=== PATIENT | female | born 1940 ===

== ENCOUNTER 2018-10-04 15:02 | Inpatient (IN) | payer OTHER ==
[2018-10-04] MEDS ORDERED: Piperacill/Tazo 3.375gm in Dex 3.375 GM/50 ML BAG IVPB STA (15:22)
[2018-10-04 15:24] VITALS: BMI 23.4
[2018-10-04] MEDS ORDERED: Vancomycin 1 GM 1 GM/250 ML BAG IV SCH (15:30)
[2018-10-04 15:40] LABS: VENOUS BLOOD GAS BASE EXCESS -8.6 mmol/L (0.0-2.0); VENOUS BLOOD GAS PCO2 33 mmHg (40-60); VENOUS BLOOD GAS PO2 41 mm/Hg (30-55); VENOUS BLOOD PH 7.31 (7.32-7.43)
[2018-10-04] MEDS ORDERED: Piperacillin/Tazobact 3.375 gm 100 ML IVPB ONE (15:43)
[2018-10-04 15:44] LABS: BASO % 0.3 % (0.0-2.0); EOS % 0.2 % (0.0-4.0); HEMOGLOBIN 9.7 g/dL (11.0-16.0); LYMPH # 1.4 K/uL (1.0-4.3); LYMPH % 12.9 % (20.0-40.0); MEAN CELL VOLUME 100.8 fL (81.0-99.0); MEAN CORPUSCULAR HEMOGLOBIN 32.1 pg (27.0-31.0); MEAN CORPUSCULAR HGB CONC 31.9 g/dL (33.0-37.0); MEAN PLATELET VOLUME 10.2 fL (7.2-11.7); MONO # 2.1 K/uL (0.0-0.8); MONO % 19.1 % (0.0-10.0); NEUT # 7.6 K/uL (1.8-7.0); NEUT % 67.5 % (50.0-75.0); NRBC % 0.3 % (0.0-2.0); RBC 3.02 Mil/uL (3.80-5.20); RED CELL DISTRIBUTION WIDTH 15.7 % (11.5-14.5); WHITE BLOOD COUNT 11.2 K/uL (4.8-10.8)
--- NOTE | 2018-10-04 15:44 | C.PDOC ---
History Of Present Illness Pt is a 78 y/o female, with history of malignant gastric cancer, asthma, hypothyroidism, alzheimer's, sick sinus syndrome, pacemaker, and atrial fibrillation, is brought in by ambulance to ED after being found unresponsive at [facility]. As per EMS, the patient was discharged from [facility] 2 days ago with a UTI and was supposed to be receiving IV fluids and IV antibiotics but her IV line came out > 24 hrs ago so patient has not been receiving her IV medication(s). Patient was found unresponsive, sinus tac hycardic at 130 bpm, hypotensive, and tachypneic by EMS and patient is not verbal. Since arrival to ED, patient has slightly improved per EMS (a bit more responsive and occasionally will moan/try to speak). Patient is DNR/DNI but DNH (do not hospitalize) has been revoked by daughter. [facility] PMD: Dr. Miguel Jimenez Chief Complaint (Nursing): Altered Mental Status History Per: EMS History/Exam Limitations: None Onset/Duration Of Symptoms: Hrs Current Symptoms Are (Timing): Still Present Past Medical History Reviewed: Historical Data, Nursing Documentation, Vital Signs Vital Signs: Last Vital Signs Temp Pulse 126 H 10/04/18 15:23 Resp 30 H 10/04/18 15:23 BP 113/96 H 10/04/18 15:23 Pulse Ox 100 10/04/18 15:23 - Medical History PMH: Alzheimer's Disease, Asthma, Atrial Fibrillation, Dementia, HTN, H ypothyroidism Family History: States: Stroke (father from stroke) - Social History Hx Tobacco Use: No Hx Alcohol Use: No Hx Substance Use: No - Immunization History Hx Tetanus Toxoid Vaccination: No Hx Influenza Vaccination: No Hx Pneumococcal Vaccination: No Review Of Systems Except As Marked, All Systems Reviewed And Found Negative. Neurological: Positive for: Altered Mental Status Physical Exam - Physical Exam Appears: Toxic, Other (Lethargic--looks very ill) Skin: Warm, Dry, No Rash Head: Atraumatic, Normacephalic Eye(s): bilateral: Normal Inspection, PERRL, EOMI Ear(s): Bilateral: Normal Nose: Normal Oral Mucosa: Dry Lips: Other (dry) Throat: Normal Neck: Supple Chest: Symmetrical Cardiovascular: Rhythm Regular (Tachycardic), No Murmur Respiratory: Normal Breath Sounds, No Rales, No Rhonchi, No Wheezing Gastrointestinal/Abdominal: Soft, No Tenderness Rectal: Deferred Back: Normal Inspection Extremity: Other (+ intraosseous lines to both shoulders) Extremity: Bilateral: Atraumatic, No Pedal Edema Pulses: Left Radial: Absent (due to hypotension), Right Radial: Absent (due to hypotension) Neurological/Psych: Other (Responsive to painful stimuli) ED Course And Treatment - Laboratory Results Result Diagrams: 10/04/18 15:35 10/04/18 16:26 O2 Sat by Pulse Oximetry: 100 (RA) Pulse Ox Interpretation: Normal - Other Rad Chest X-Ray X-Ray: Read By Radiologist Interpretation: LUNGS: There are low lung volumes. The lungs are clear. PLEURA: No pleural effusions or pneumothorax. CARDIOVASCULAR: The heart is normal in size. There is unfolding of the aorta. There is a left-sided dual lead transvenous permanent pacing device. No aortic atherosclerotic calcification present. OSSEOUS STRUCTURES: Within normal limits for the patient's age. VISUALIZED UPPER ABDOMEN: Normal. OTHER FINDINGS: None. IMPRESSION: No acute findings Medical Decision Making Medical Decision Making: Initial Impression: Severe sepsis / septic shock The daughter is at bedside; earlier today the daughter revoked the "do not hospitalize" order from the [facility]. However, the daughter did clarify that the patient is still DNR/DNI Plan: --Bloodwork --EKG --Chest X-Ray --VBG --Zosyn --Vancomycin --Urinalysis --Follow Code sepsis protocol. Progress note: 4:30 PM - Lactate 2.1 meeting criteria for severe sepsis. Codes sepsis activated. I spoke to Dr. Miguel Jimenez (following pt at [facility]). He recommends admission to his service and ID consult with Dr. Galvan and hematology/oncology consult with Dr. Issac Gonzáles. Also, the left intra-osseous line was not functioning properly and was removed. Right intra-osseous line is still working; pt also has a peripheral IV. CMP hemolyzed but I darren a repeat CMP. qSOFA score = 3 6:30 PM - I discussed case with fishing gear mechanic and feels that given patient's DNR/DNI status, it would be more appropriate to admit to telemetry (not ICU) and focus on comfort care. 6:50 PM - Dr. Galvan called and recommended adding 500 mg Meropenam Q8 until cultures start coming back. Disposition - Disposition Disposition: HOSPITALIZED Disposition Time: 16:37 Condition: SERIOUS - Clinical Impression Clinical Impression: Severe sepsis, DNR (do not resuscitate), DNI (do not intubate), Gastric cancer, Alzheimer disease - Scribe Statement The provider has reviewed the documentation as recorded by the Cassidyibvivian Chavez Provider Attestation: All medical record entries made by the Cassidyibvivian were at my direction and p ersonally dictated by me. I have reviewed the chart and agree that the record accurately reflects my personal performance of the history, physical exam, medical decision making, and the department course for this patient. I have also personally directed, reviewed, and agree with the discharge instructions and disposition. Decision To Admit - Pt Status Changed To: Hospital Disposition Of: Inpatient - Admit Certification Admit to Inpatient:: After my assessment, the patient will require hospi talization for at least two midnights. This is because of the severity of symptoms shown, intensity of services needed, and/or the medical risk in this patient being treated as an outpatient. - InPatient: Physician Admission Certification:: Patient with severe sepsis - . Bed Request Type: ICU Admitting Physician: Alonzo Jimenez MD Patient Diagnosis: Severe sepsis, DNR (do not resuscitate), DNI (do not intubate), Gastric cancer, Alzheimer disease
[2018-10-04 15:46] LABS: INR 2.1
--- NOTE | 2018-10-04 16:33 | RAD ---
Date of service: 10/04/2018 HISTORY: Sepsis Patient COMPARISON: 08/22/2015. FINDINGS: LUNGS: There are low lung volumes. The lungs are clear. PLEURA: No pleural effusions or pneumothorax. CARDIOVASCULAR: The heart is normal in size. There is unfolding of the aorta. There is a left-sided dual lead transvenous permanent pacing device. No aortic atherosclerotic calcification present. OSSEOUS STRUCTURES: Within normal limits for the patient's age. VISUALIZED UPPER ABDOMEN: Normal. OTHER FINDINGS: None. IMPRESSION: No acute findings.
[2018-10-04] MEDS ORDERED: Vancomycin 1 GM 1 GM/250 ML BAG IVPB ONE (16:58)
[2018-10-04 17:03] LABS: SQUAMOUS EPITHIAL 1 /hpf (0-5); URINE BACTERIA MANY (<OCC); URINE BILIRUBIN 1+ (NEGATIVE); URINE BLOOD NEGATIVE (NEGATIVE); URINE CLARITY Clear (Clear); URINE COLOR Amber (YELLOW); URINE GLUCOSE (UA) NORMAL (Normal); URINE LEUKOCYTE ESTERASE NEG Leu/uL (Negative); URINE PROTEIN 1+ mg/dL (NEGATIVE)
[2018-10-04 17:07] LABS: ALB/GLOB RATIO 0.6 (1.0-2.1); ALBUMIN 1.8 g/dL (3.5-5.0); CALCIUM 7.5 mg/dl (8.6-10.4)
[2018-10-04] MEDS ORDERED: Ciprofloxacin 400mg/200ml D5W 400 MG/200 ML BAG IV STA (17:14)
[2018-10-04 17:20] LABS: TROPONIN I 0.13 ng/mL (0.00-0.120)
[2018-10-04] MEDS ORDERED: Sodium Chloride 0.9% 1,000 ML IV ONE (18:04)
[2018-10-04 18:26] LABS: VENOUS BLOOD GAS BASE EXCESS -14.3 mmol/L (0.0-2.0); VENOUS BLOOD GAS PCO2 28 mmHg (40-60); VENOUS BLOOD GAS PO2 37 mm/Hg (30-55); VENOUS BLOOD PH 7.23 (7.32-7.43)
[2018-10-04] MEDS ORDERED: Meropenem 500 MG in Sodium Chloride 0.9% 100 ML IVPB STA (18:49)
[2018-10-04] MEDS ORDERED: Ciprofloxacin 400mg/200ml D5W 400 MG/200 ML BAG IVPB ONE (18:58)
[2018-10-04] MEDS ORDERED: Meropenem 500 MG in Sodium Chloride 0.9% 100 ML IVPB ONE (21:00)
[2018-10-05] MEDS ORDERED: Piperacill/Tazo 3.375gm in Dex 3.375 GM/50 ML BAG IVPB SCH (08:15)
[2018-10-05] MEDS ORDERED: Piperacill/Tazo 2.25gm in Dex 2.25 GM/50 ML BAG IVPB SCH (08:30)
[2018-10-05] MEDS: Sodium Chloride 0.9% 500 ML IV SCH ×4 (08:31→11:45)
[2018-10-05] MEDS ORDERED: Enoxaparin 40 mg Syringe SC SCH (10:00)
--- NOTE | 2018-10-05 10:28 | CP.PCM.CON ---
History of Present Illness - History of Present Illness History of Present Illness: Palliative consult requested by Doctor Khoury for end of life care discussion Patient is a 78 yo female , admitted from [facility] at [facility] where she was found unresponsive with HR of 130. Patient was discharged just 2 days ago from [facility] where was treated for UTI. IV fluids and IV antibiotics were ordered upon discharge, but patient lost IV access at the [facility] and those were not administered. Upon admission patient was found with elevated Troponin and BNP, elevated ALTs and ASTs, low Albumin, and very hypotensive; BP 79/54, HR 128 and Temp 101.1. Patient was diagnosed with severe sepsis and dehydration. IVF bolus given and Zosyn IV started. However, patient's condition remains critical. Patient is DNR/DNI as per LYNDA from intermediate. PMH: malignant gastric CA, asthma, Alzheimer's, A fib Soc. Hx: , lives at home with daughter Eliana Jacobo. Hx: Unknown Review of Systems - Review of Systems All systems: reviewed and no additional remarkable complaints except Review of Systems: ROS unobtainable from the patient due to lethargy. ROS obtained from nursing. Patient is in pain, moaning.Per Lilia BHAKTA, due to low BP , Morphine is not administered. IVF on board for BP support Past Patient History - Past Medical History & Family History Past Medical History?: Yes - Past Social History Smoking Status: Never Smoked - CARDIAC Hx Atrial Fibrillation: Yes Hx Hypertension: Yes - PULMONARY Hx Asthma: Yes - NEUROLOGICAL Hx Alzheimer's Disease: Yes Hx Dementia: Yes - HEENT Hx HEENT Problems: No Hx Cataracts: Yes Other/Comment: Sinus syndrome - RENAL Hx Chronic Kidney Disease: No - ENDOCRINE/METABOLIC Hx Hypothyroidism: Yes - HEMATOLOGICAL/ONCOLOGICAL Hx Blood Disorders: No - INTEGUMENTARY Hx Dermatological Problems: No - MUSCULOSKELETAL/RHEUMATOLOGICAL Hx Musculoskeletal Disorders: No Hx Falls: Yes - GASTROINTESTINAL Hx Gastrointestinal Disorders: No Hx Gastroesophageal Reflux: No Other/Comment: Stomach CA - GENITOURINARY/GYNECOLOGICAL Hx Genitourinary Disorders: No - PSYCHIATRIC Hx Substance Use: No - SURGICAL HISTORY Hx Surgeries: Yes Hx Cataract Extraction: Yes Hx Section: Yes (37 yrs ago) Hx Orthopedic Surgery: Yes (knee replacement) Other/Comment: l knee surgery. Pacemaker - ANESTHESIA Hx Anesthesia: Yes Hx Anesthesia Reactions: No Hx Malignant Hyperthermia: No Meds Allergies/Adverse Reactions: Allergies Allergy/AdvReac Type Severity Reaction Status Date / Time No Known Allergies Allergy Verified 08/22/15 09:05 - Medications Medications: Current Medications Enoxaparin Sodium (Lovenox) 40 mg SC DAILY [facility] Sodium Chloride (Sodium Chloride 0.9%) 500 mls @ 500 mls/hr IV .Q1H CHRISTIANO Last Admin: 10/05/18 08:31 Dose: 500 mls/hr Piperacillin Sod/Tazobactam Sod (Zosyn 2.25 Gm Iv Premix) 2.25 gm in 50 mls @ 100 mls/hr IVPB Q8H [facility]; Protocol Morphine Sulfate (Morphine) 2 mg IVP Q4 PRN PRN Reason: Pain, severe (8-10) Last Admin: 10/04/18 21:06 Dose: 2 mg Pantoprazole Sodium (Protonix Inj) 40 mg IVP DAILY [facility] Last Admin: 10/05/18 09:07 Dose: 40 mg Physical Exam - Constitutional Appears: In Acute Distress, Chronically Ill - Head Exam Head Exam: ATRAUMATIC, NORMAL INSPECTION, NORMOCEPHALIC - Eye Exam Eye Exam: EOMI, Normal appearance, PERRL Pupil Exam: NORMAL ACCOMODATION, PERRL - ENT Exam ENT Exam: Mucous Membranes Dry - Neck Exam Neck exam: Positive for: Normal Inspection - Respiratory Exam Respiratory Exam: Decreased Breath Sounds - Cardiovascular Exam Cardiovascular Exam: Tachycardia, Irregular Rhythm - GI/Abdominal Exam GI & Abdominal Exam: Distended, Hypoactive Bowel Sounds - Rectal Exam Rectal Exam: Deferred - Extremities Exam Extremities exam: Positive for: normal inspection - Back Exam Back exam: NORMAL INSPECTION - Neurological Exam Neurological exam: Motor Sensory Deficit - Psychiatric Exam Psychiatric exam: Agitated, Anxious - Skin Skin Exam: Dry, Intact, Normal Color Results - Vital Signs Recent Vital Signs: Last Vital Signs Temp 101.1 F H 10/05/18 07:00 Pulse 138 H 10/05/18 08:00 Resp 20 10/05/18 07:00 BP 79/54 L 10/05/18 07:00 Pulse Ox 100 10/05/18 08:57 - Labs Result Diagrams: 10/04/18 15:35 10/04/18 16:26 Labs: Laboratory Results - last 24 hr 10/04/18 10/04/18 10/04/18 15:19 15:35 15:35 WBC 11.2 H D RBC 3.02 L Hgb 9.7 L D Hct 30.5 L MCV 100.8 H D MCH 32.1 H MCHC 31.9 L RDW 15.7 H Plt Count 139 MPV 10.2 Neut % (Auto) 67.5 Lymph % (Auto) 12.[address] [facility] % (Auto) 19.1 H Eos % (Auto) 0.2 Baso % (Auto) 0.3 Neut # (Auto) 7.6 H Lymph # (Auto) 1.4 [facility] # (Auto) 2.1 H Eos # (Auto) 0.0 Baso # (Auto) 0.0 PT 23.0 H INR 2.1 APTT 32 pO2 VBG pH VBG pCO2 VBG HCO3 VBG Total CO2 VBG O2 Sat (Calc) VBG Base Excess VBG Potassium Sodium Chloride Glucose Lactate Potassium Carbon Dioxide Anion Gap BUN Creatinine Est GFR ( Amer) Est GFR (Non-Af Amer) POC Glucose (mg/dL) 90 Random Glucose Calcium Total Bilirubin AST ALT Alkaline Phosphatase Troponin I NT-Pro-B Natriuret Pep Total Protein Albumin Globulin Albumin/Globulin Ratio Venous Blood Potassium Urine Color Urine Clarity Urine pH Ur Specific [place] Urine Protein Urine Glucose (UA) Urine Ketones Urine Blood Urine Nitrate Urine Bilirubin Urine Urobilinogen Ur Leukocyte Esterase Urine WBC (Auto) Urine RBC (Auto) Ur Squamous Epith Cells Urine Bacteria 10/04/18 10/04/18 10/04/18 15:37 16:26 16:53 WBC RBC Hgb Hct MCV MCH MCHC RDW Plt Count MPV Neut % (Auto) Lymph % (Auto) [facility] % (Auto) Eos % (Auto) Baso % (Auto) Neut # (Auto) Lymph # (Auto) [facility] # (Auto) Eos # (Auto) Baso # (Auto) PT INR APTT pO2 41 VBG pH 7.31 L VBG pCO2 33 L VBG HCO3 17.5 VBG Total CO2 17.6 L VBG O2 Sat (Calc) 69.1 H VBG Base Excess -8.6 L VBG Potassium 5.1 Sodium 143.0 139 Chloride 111.0 H 116 H Glucose 78 Lactate 2.1 Potassium 4.8 Carbon Dioxide 15 L Anion Gap 12 BUN 36 H Creatinine 2.2 H Est GFR ( Amer) 26 Est GFR (Non-Af Amer) 22 POC Glucose (mg/dL) Random Glucose 85 Calcium 7.5 L Total Bilirubin 0.9 AST 2591 H ALT 156 H D Alkaline Phosphatase 248 H Troponin I 0.1300 H* NT-Pro-B Natriuret Pep 2610 H Total Protein 4.8 L Albumin 1.8 L D Globulin 3.0 Albumin/Globulin Ratio 0.6 L Venous Blood Potassium 5.1 Urine Color Stephanie Urine Clarity Clear Urine pH 5.0 Ur Specific [place] 1.027 Urine Protein 1+ H Urine Glucose (UA) Normal Urine Ketones Negative Urine Blood Negative Urine Nitrate Negative Urine Bilirubin 1+ H Urine Urobilinogen 2.0 H Ur Leukocyte Esterase Neg Urine WBC (Auto) 72 H Urine RBC (Auto) 4 H Ur Squamous Epith Cells 1 Urine Bacteria Many H 10/04/18 10/04/18 18:22 22:23 WBC RBC Hgb Hct MCV MCH MCHC RDW Plt Count MPV Neut % (Auto) Lymph % (Auto) [facility] % (Auto) Eos % (Auto) Baso % (Auto) Neut # (Auto) Lymph # (Auto) [facility] # (Auto) Eos # (Auto) Baso # (Auto) PT INR APTT pO2 37 VBG pH 7.23 L VBG pCO2 28 L VBG HCO3 12.7 VBG Total CO2 12.6 L VBG O2 Sat (Calc) 57.8 VBG Base Excess -14.3 L VBG Potassium 4.0 Sodium 145.0 Chloride 122.0 H Glucose 59 L Lactate 3.6 H Potassium Carbon Dioxide Anion Gap BUN Creatinine Est GFR ( Amer) Est GFR (Non-Af Amer) POC Glucose (mg/dL) 93 Random Glucose Calcium Total Bilirubin AST ALT Alkaline Phosphatase Troponin I NT-Pro-B Natriuret Pep Total Protein Albumin Globulin Albumin/Globulin Ratio Venous Blood Potassium 4.0 Urine Color Urine Clarity Urine pH Ur Specific [place] Urine Protein Urine Glucose (UA) Urine Ketones Urine Blood Urine Nitrate Urine Bilirubin Urine Urobilinogen Ur Leukocyte Esterase Urine WBC (Auto) Urine RBC (Auto) Ur Squamous Epith Cells Urine Bacteria Assessment & Plan - Assessment and Plan (Free Text) Assessment: Palliative consult DNR/DNI, POLST on chart, PPS 10% I reviewed all medical records and diagnostic studies, examined patient in bed and discussed goals of care with family at bed side Patient is alert, unable to fallow commends, moaning in pain. Morphine 2 mg IV Q 4 h on board. Last Morphine dose given at 9 pm last night. The PRN doses of Morphine held due to patient's very low BP. Breathing is shallow and fast, HR 130, afebrile. max Temp last night 101.1. Abdomen distended, rigid, hypoactive bowel sounds. Patient is agitated, able to move all her extremities. One of the daughters and granddaughter at bed side. I reviewed patient's clinical presentation with her and offered my concerns about grave prognosis. They stated understanding and concerns about patient's level of pain not being well controlled. I explained concerns regarding the low BP and suggested Comfort care discussion and explained that under the Hospice care patient is expected to , but with better comfort measures. Family stated understanding and wanted her to peacefully. The family also stated that daughter Sanjiv Monroy was the Medical decisions maker and asked me to talk to her. Eliana was not available on the phone at this time and I lef voice mail. I shared my concerns about this patient very poor clinical presentation with alee BHAKTA and Doctor isabel Jimenez. Doctor Isabel Jmienez agreed with Hospice eval and ordered Morphine 2 mg IV to be given until hospice comes. Impression * Chronically ill lady in acute respiratory distress * Pain cancer related * Agitation * Unresponsiveness * Hypotension * This will most likely in the next 24 to 48 hr * Family at bed side is concerned with patient's comfort and understands the grave prognosis * Doctor Isabel Jimenez agrees with Hospice eval and Morphine IV for pain Suggestion * Morphine 2 mg Iv Q 2 hr PRN pain or respiratory distress * Hospice evaluation for Comfort care * DNR/DNI * I would install Comfort measures even before hospice comes; Morphine drip, NPO and would stop IV antibiotics Advance care discussion 60 min Palliative care will fallow with this patient until Hospice takes over
--- NOTE | 2018-10-05 11:02 | CP.PCM.CON ---
History of Present Illness - History of Present Illness History of Present Illness: 78 yo female , admitted from [place] where she was found unresponsive with HR of 130. Patient was discharged just 2 days ago [place] [facility] [place]. IV fluids and IV antibiotics were ordered upon discharge, but maryann hsieh lost IV access at the [place] and those were not administered. Upon admission patient was found with elevated Troponin and BNP, elevated ALTs and ASTs, low Albumin, and very hypotensive; BP 79/54, HR 128 and Temp 101.1. Patient was diagnosed with severe sepsis and dehydration. IVF bolus given and Zosyn IV started. H PMH: malignant gastric CA, asthma, Alzheimer's, A fib Soc. Hx: , lives at home with daughter Eliana Jacobo. Hx: Unknown Review of Systems - Review of Systems All systems: reviewed and no additional remarkable complaints except - Constitutional Constitutional: As Per HPI - EENT Eyes: absent: As Per HPI, Blind Spots, Blurred Vision, Change in Vision, Decreased Night Vision, Diplopia, Discharge, Dry Eye, Exophthalmos, Floaters, Irritation, Itchy Eyes, Loss of Peripheral Vision, Pain, Photophobia, Requires Corrective Lenses, Sees Flashes, Spots in Vision, Tunnel Vision, Other Visual Disturbances, Loss of Vision, Other Ears: absent: As Per HPI, Decreased Hearing, Ear Discharge, Ear Pain, Tinnitus, Abnormal Hearing, Disequilibrium, Dizziness, Other Nose/Mouth/Throat: absent: As Per HPI, Epistaxis, Nasal Congestion, Nasal Discharge, Nasal Obstruction, Nasal Trauma, Nose Pain, Post Nasal Drip, Sinus Pain, Sinus Pressure, Bleeding Gums, Change in Voice, Dental Pain, Dry Mouth, Dysphagia, Halitosis, Hoarsness, Lip Swelling, Mouth Lesions, Mouth Pain, Odynophagia, Sore Throat, Throat Swelling, Tongue Swelling, Facial Pain, Neck Pain, Neck Mass, Other - Breasts Breasts: absent: As Per HPI, Change in Shape, Mass, Pain, Nipple Discharge, Nipple Inversion, Skin Changes, Swelling, Other - Cardiovascular Cardiovascular: As Per HPI - Respiratory Respiratory: As Per HPI - Gastrointestinal Gastrointestinal: absent: As Per HPI, Abdominal Pain, Belching, Bloating, Change in Bowel Habits, Change in Stool Character, Coffee Ground Emesis, Constipation, Cramping, Diarrhea, Dyspepsia, Dysphagia, Early Satiety, Excessive Flatus, Fecal Incontinence, Heartburn, Hematemesis, Hematochezia, Loose Stools, Melena, Nausea, Odynophagia, Temesmus, Vomiting, Other - Genitourinary Genitourinary: absent: As Per HPI, Change in Urinary Stream, Difficulty Urinating, Dysuria, Flank Pain, Hematuria, Pyuria, Nocturia, Urinary Incontinence, Urinary Frequency, Urinary Hesitance, Urinary Urgency, Voiding Freq/Small Amts, Freq UTI, Hx Renal/Bladder Calculi, Hx /Renal Surgery, Bladder Distension, Other - Reproductive: Female Reproductive:Female: absent: As Per HPI, Amenorrhea, Amenorrhea/ Control, Currently Menstual, Cycle <21 Days, Cycle >35 Days, Cycle Variable, Menses 1-7 Days, Menses >/= 8 Days, Menses Variable, Cycle > 4 Weeks Between, No Menses for 6 Months, Heavy Menses, Light Menses, Normal Menses, Spotting Between Cycles, S/P Hysterectomy, Menopausal, Post Menopausal, Premenarche, Abnormal Vaginal Bleeding, Dysmenorrhea, Dyspareunia, Genital Lesions, Genital Pruritis, Pelvic Pain, Prolapse Symptoms, Sexual Dysfunction, Vaginal Discharge, Vaginal Dryness, Vaginal Odor, Vaginal Pruritis, Other - Menstruation Menstruation: absent: As Per HPI, Amenorrhea, Amenorrhea/ Control, Currently Menstual, Cycle <21 Days, Cycle >35 Days, Cycle Variable, Menses 1-7 Days, Menses >/= 8 Days, Menses Variable, Cycle > 4 Weeks Between, No Menses for 6 Months, Heavy Menses, Light Menses, Normal Menses, Spotting Between Cycles, S/P Hysterectomy, Menopausal, Post Menopausal, Premenarche, Abnormal Vaginal Bleeding, Dysmenorrhea, Other - Musculoskeletal Musculoskeletal: As Per HPI - Integumentary Integumentary: absent: As Per HPI, Acne, Alopecia, Bleeding Lesions, Change in Hair, Change in Nails, Change in Pigmentation, Changing Lesions, Dry Skin, Erythema, Furuncle, Hirsutism, Lesions, New Lesions, Non-Healing Lesions, Photosensitivity, Pruritus, Rash, Skin Pain, Skin Ulcer, Sores, Striae, Swelling, Unusual Bruising, Wounds, Jaundice, Other - Neurological Neurological: As Per HPI - Psychiatric Psychiatric: As Per HPI - Hematologic/Lymphatic Hematologic: absent: As Per HPI, Easy Bleeding, Easy Bruising, Lymphadenopathy, Other Past Patient History - Past Medical History & Family History Past Medical History?: Yes - Past Social History Smoking Status: Never Smoked - CARDIAC Hx Atrial Fibrillation: Yes Hx Hypertension: Yes - PULMONARY Hx Asthma: Yes - NEUROLOGICAL Hx Alzheimer's Disease: Yes Hx Dementia: Yes - HEENT Hx HEENT Problems: No Hx Cataracts: Yes Other/Comment: Sinus syndrome - RENAL Hx Chronic Kidney Disease: No - ENDOCRINE/METABOLIC Hx Hypothyroidism: Yes - HEMATOLOGICAL/ONCOLOGICAL Hx Blood Disorders: No - INTEGUMENTARY Hx Dermatological Problems: No - MUSCULOSKELETAL/RHEUMATOLOGICAL Hx Musculoskeletal Disorders: No Hx Falls: Yes - GASTROINTESTINAL Hx Gastrointestinal Disorders: No Hx Gastroesophageal Reflux: No Other/Comment: Stomach CA - GENITOURINARY/GYNECOLOGICAL Hx Genitourinary Disorders: No - PSYCHIATRIC Hx Substance Use: No - SURGICAL HISTORY Hx Surgeries: Yes Hx Cataract Extraction: Yes Hx Section: Yes (37 yrs ago) Hx Orthopedic Surgery: Yes (knee replacement) Other/Comment: l knee surgery. Pacemaker - ANESTHESIA Hx Anesthesia: Yes Hx Anesthesia Reactions: No Hx Malignant Hyperthermia: No Meds Allergies/Adverse Reactions: Allergies Allergy/AdvReac Type Severity Reaction Status Date / Time No Known Allergies Allergy Verified 08/22/15 09:05 - Medications Medications: Current Medications Enoxaparin Sodium (Lovenox) 40 mg SC DAILY [facility] Sodium Chloride (Sodium Chloride 0.9%) 500 mls @ 500 mls/hr IV .Q1H [facility] Last Admin: 10/05/18 10:53 Dose: 500 mls/hr Piperacillin Sod/Tazobactam Sod (Zosyn 2.25 Gm Iv Premix) 2.25 gm in 50 mls @ 100 mls/hr IVPB Q8H [facility]; Protocol Last Admin: 10/05/18 09:30 Dose: 100 mls/hr Morphine Sulfate (Morphine) 2 mg IVP Q4 PRN PRN Reason: Pain, severe (8-10) Last Admin: 10/05/18 10:51 Dose: 2 mg Pantoprazole Sodium (Protonix Inj) 40 mg IVP DAILY [facility] Last Admin: 10/05/18 09:07 Dose: 40 mg Physical Exam - Constitutional Appears: Toxic, In Acute Distress, Confused, Cachectic - Head Exam Head Exam: NORMOCEPHALIC - Eye Exam Eye Exam: absent: Scleral icterus - ENT Exam ENT Exam: Mucous Membranes Dry - Neck Exam Neck exam: Negative for: Lymphadenopathy - Respiratory Exam Respiratory Exam: Decreased Breath Sounds, Prolonged Expiratory Phase, Rales, Rhonchi - Cardiovascular Exam Cardiovascular Exam: Tachycardia, REGULAR RHYTHM, +S1, +S2 - GI/Abdominal Exam GI & Abdominal Exam: Diminished Bowel Sounds, Soft. absent: Tenderness - Rectal Exam Rectal Exam: Deferred - Exam Exam: NORMAL INSPECTION - Extremities Exam Extremities exam: Positive for: pedal edema. Negative for: calf tenderness - Back Exam Back exam: absent: CVA tenderness (L), CVA tenderness (R), paraspinal tenderness - Neurological Exam Neurological exam: Alert, Altered, CN II-XII Intact - Psychiatric Exam Psychiatric exam: Normal Mood - Skin Skin Exam: Dry Results - Vital Signs Recent Vital Signs: Last Vital Signs Temp 101.1 F H 10/05/18 07:00 Pulse 138 H 10/05/18 08:00 Resp 20 10/05/18 07:00 BP 79/54 L 10/05/18 07:00 Pulse Ox 100 10/05/18 08:57 - Labs Result Diagrams: 10/04/18 15:35 10/04/18 16:26 Labs: Laboratory Results - last 24 hr 10/04/18 10/04/18 10/04/18 15:19 15:35 15:35 WBC 11.2 H D RBC 3.02 L Hgb 9.7 L D Hct 30.5 L MCV 100.8 H D MCH 32.1 H MCHC 31.9 L RDW 15.7 H Plt Count 139 MPV 10.2 Neut % (Auto) 67.5 Lymph % (Auto) 12.9 L [place] % (Auto) 19.1 H Eos % (Auto) 0.2 Baso % (Auto) 0.3 Neut # (Auto) 7.6 H Lymph # (Auto) 1.4 [place] # (Auto) 2.1 H Eos # (Auto) 0.0 Baso # (Auto) 0.0 PT 23.0 H INR 2.1 APTT 32 pO2 VBG pH VBG pCO2 VBG HCO3 VBG Total CO2 VBG O2 Sat (Calc) VBG Base Excess VBG Potassium Sodium Chloride Glucose Lactate Potassium Carbon Dioxide Anion Gap BUN Creatinine Est GFR ( Amer) Est GFR (Non-Af Amer) POC Glucose (mg/dL) 90 Random Glucose Calcium Total Bilirubin AST ALT Alkaline Phosphatase Troponin I NT-Pro-B Natriuret Pep Total Protein Albumin Globulin Albumin/Globulin Ratio Venous Blood Potassium Urine Color Urine Clarity Urine pH Ur Specific [place] Urine Protein Urine Glucose (UA) Urine Ketones Urine Blood Urine Nitrate Urine Bilirubin Urine Urobilinogen Ur Leukocyte Esterase Urine WBC (Auto) Urine RBC (Auto) Ur Squamous Epith Cells Urine Bacteria 10/04/18 10/04/18 10/04/18 15:37 16:26 16:53 WBC RBC Hgb Hct MCV MCH MCHC RDW Plt Count MPV Neut % (Auto) Lymph % (Auto) [place] % (Auto) Eos % (Auto) Baso % (Auto) Neut # (Auto) Lymph # (Auto) Bryan # (Auto) Eos # (Auto) Baso # (Auto) PT INR APTT pO2 41 VBG pH 7.31 L VBG pCO2 33 L VBG HCO3 17.5 VBG Total CO2 17.6 L VBG O2 Sat (Calc) 69.1 H VBG Base Excess -8.6 L VBG Potassium 5.1 Sodium 143.0 139 Chloride 111.0 H 116 H Glucose 78 Lactate 2.1 Potassium 4.8 Carbon Dioxide 15 L Anion Gap 12 BUN 36 H Creatinine 2.2 H Est GFR ( Amer) 26 Est GFR (Non-Af Amer) 22 POC Glucose (mg/dL) Random Glucose 85 Calcium 7.5 L Total Bilirubin 0.9 AST 2591 H ALT 156 H D Alkaline Phosphatase 248 H Troponin I 0.1300 H* NT-Pro-B Natriuret Pep 2610 H Total Protein 4.8 L Albumin 1.8 L D Globulin 3.0 Albumin/Globulin Ratio 0.6 L Venous Blood Potassium 5.1 Urine Color Stephanie Urine Clarity Clear Urine pH 5.0 Ur Specific [place] 1.027 Urine Protein 1+ H Urine Glucose (UA) Normal Urine Ketones Negative Urine Blood Negative Urine Nitrate Negative Urine Bilirubin 1+ H Urine Urobilinogen 2.0 H Ur Leukocyte Esterase Neg Urine WBC (Auto) 72 H Urine RBC (Auto) 4 H Ur Squamous Epith Cells 1 Urine Bacteria Many H 10/04/18 10/04/18 18:22 22:23 WBC RBC Hgb Hct MCV MCH MCHC RDW Plt Count MPV Neut % (Auto) Lymph % (Auto) [place] % (Auto) Eos % (Auto) Baso % (Auto) Neut # (Auto) Lymph # (Auto) Bryan # (Auto) Eos # (Auto) Baso # (Auto) PT INR APTT pO2 37 VBG pH 7.23 L VBG pCO2 28 L VBG HCO3 12.7 VBG Total CO2 12.6 L VBG O2 Sat (Calc) 57.8 VBG Base Excess -14.3 L VBG Potassium 4.0 Sodium 145.0 Chloride 122.0 H Glucose 59 L Lactate 3.6 H Potassium Carbon Dioxide Anion Gap BUN Creatinine Est GFR ( Amer) Est GFR (Non-Af Amer) POC Glucose (mg/dL) 93 Random Glucose Calcium Total Bilirubin AST ALT Alkaline Phosphatase Troponin I NT-Pro-B Natriuret Pep Total Protein Albumin Globulin Albumin/Globulin Ratio Venous Blood Potassium 4.0 Urine Color Urine Clarity Urine pH Ur Specific [place] Urine Protein Urine Glucose (UA) Urine Ketones Urine Blood Urine Nitrate Urine Bilirubin Urine Urobilinogen Ur Leukocyte Esterase Urine WBC (Auto) Urine RBC (Auto) Ur Squamous Epith Cells Urine Bacteria Assessment & Plan (1) Alzheimer disease Status: Acute (2) DNR (do not resuscitate) Status: Acute (3) Gastric cancer Status: Acute (4) Severe sepsis Status: Acute - Assessment and Plan (Free Text) Assessment: severe sepsis, dehydration, RACHELLE, AMS souirce unclear- urine and or pneumonia witn sepsis start [place]
[2018-10-05] MEDS ORDERED: Meropenem 500 MG in Sodium Chloride 0.9% 100 ML IVPB SCH (11:15)
[2018-10-05] MEDS: Meropenem 500 MG in Sodium Chloride 0.9% 100 ML IVPB SCH ×2 (11:42→22:41)
--- NOTE | 2018-10-05 12:58 | CP.PCM.HP ---
Past Patient History - Past Medical History & Family History Past Medical History?: Yes - Past Social History Smoking Status: Never Smoked - CARDIAC Hx Atrial Fibrillation: Yes Hx Hypertension: Yes - PULMONARY Hx Asthma: Yes - NEUROLOGICAL Hx Alzheimer's Disease: Yes Hx Dementia: Yes - HEENT Hx HEENT Problems: No Hx Cataracts: Yes Other/Comment: Sinus syndrome - RENAL Hx Chronic Kidney Disease: No - ENDOCRINE/METABOLIC Hx Hypothyroidism: Yes - HEMATOLOGICAL/ONCOLOGICAL Hx Blood Disorders: No - INTEGUMENTARY Hx Dermatological Problems: No - MUSCULOSKELETAL/RHEUMATOLOGICAL Hx Musculoskeletal Disorders: No Hx Falls: Yes - GASTROINTESTINAL Hx Gastrointestinal Disorders: No Hx Gastroesophageal Reflux: No Other/Comment: Stomach CA - GENITOURINARY/GYNECOLOGICAL Hx Genitourinary Disorders: No - PSYCHIATRIC Hx Substance Use: No - SURGICAL HISTORY Hx Surgeries: Yes Hx Cataract Extraction: Yes Hx Section: Yes (37 yrs ago) Hx Orthopedic Surgery: Yes (knee replacement) Other/Comment: l knee surgery. Pacemaker - ANESTHESIA Hx Anesthesia: Yes Hx Anesthesia Reactions: No Hx Malignant Hyperthermia: No Meds Allergies/Adverse Reactions: Allergies Allergy/AdvReac Type Severity Reaction Status Date / Time No Known Allergies Allergy Verified 08/22/15 09:05 Physical Exam - Constitutional Appears: Well - Head Exam Head Exam: ATRAUMATIC, NORMAL INSPECTION, NORMOCEPHALIC - Eye Exam Eye Exam: EOMI, Normal appearance, PERRL Pupil Exam: NORMAL ACCOMODATION, PERRL - ENT Exam ENT Exam: Mucous Membranes Moist, Normal Exam - Neck Exam Neck exam: Positive for: Normal Inspection - Respiratory Exam Respiratory Exam: Decreased Breath Sounds - Cardiovascular Exam Cardiovascular Exam: REGULAR RHYTHM, +S1, +S2 - GI/Abdominal Exam GI & Abdominal Exam: Diminished Bowel Sounds, Soft - Rectal Exam Rectal Exam: Deferred Results - Vital Signs Recent Vital Signs: Last Vital Signs Temp 101.1 F H 10/05/18 07:00 Pulse 138 H 10/05/18 08:00 Resp 20 10/05/18 07:00 BP 79/54 L 10/05/18 07:00 Pulse Ox 100 10/05/18 08:57 - Labs Result Diagrams: 10/04/18 15:35 10/04/18 16:26 Labs: Laboratory Results - last 24 hr 10/04/18 10/04/18 10/04/18 15:19 15:35 15:35 WBC 11.2 H D RBC 3.02 L Hgb 9.7 L D Hct 30.5 L MCV 100.8 H D MCH 32.1 H MCHC 31.9 L RDW 15.7 H Plt Count 139 MPV 10.2 Neut % (Auto) 67.5 Lymph % (Auto) 12.9 L [place] % (Auto) 19.1 H Eos % (Auto) 0.2 Baso % (Auto) 0.3 Neut # (Auto) 7.6 H Lymph # (Auto) 1.4 [place] # (Auto) 2.1 H Eos # (Auto) 0.0 Baso # (Auto) 0.0 PT 23.0 H INR 2.1 APTT 32 pO2 VBG pH VBG pCO2 VBG HCO3 VBG Total CO2 VBG O2 Sat (Calc) VBG Base Excess VBG Potassium Sodium Chloride Glucose Lactate Potassium Carbon Dioxide Anion Gap BUN Creatinine Est GFR ( Amer) Est GFR (Non-Af Amer) POC Glucose (mg/dL) 90 Random Glucose Calcium Total Bilirubin AST ALT Alkaline Phosphatase Troponin I NT-Pro-B Natriuret Pep Total Protein Albumin Globulin Albumin/Globulin Ratio Venous Blood Potassium Urine Color Urine Clarity Urine pH Ur Specific [place] Urine Protein Urine Glucose (UA) Urine Ketones Urine Blood Urine Nitrate Urine Bilirubin Urine Urobilinogen Ur Leukocyte Esterase Urine WBC (Auto) Urine RBC (Auto) Ur Squamous Epith Cells Urine Bacteria 10/04/18 10/04/18 10/04/18 15:37 16:26 16:53 WBC RBC Hgb Hct MCV MCH MCHC RDW Plt Count MPV Neut % (Auto) Lymph % (Auto) [place] % (Auto) Eos % (Auto) Baso % (Auto) Neut # (Auto) Lymph # (Auto) [place] # (Auto) Eos # (Auto) Baso # (Auto) PT INR APTT pO2 41 VBG pH 7.31 L VBG pCO2 33 L VBG HCO3 17.5 VBG Total CO2 17.6 L VBG O2 Sat (Calc) 69.1 H VBG Base Excess -8.6 L VBG Potassium 5.1 Sodium 143.0 139 Chloride 111.0 H 116 H Glucose 78 Lactate 2.1 Potassium 4.8 Carbon Dioxide 15 L Anion Gap 12 BUN 36 H Creatinine 2.2 H Est GFR ( Amer) 26 Est GFR (Non-Af Amer) 22 POC Glucose (mg/dL) Random Glucose 85 Calcium 7.5 L Total Bilirubin 0.9 AST 2591 H ALT 156 H D Alkaline Phosphatase 248 H Troponin I 0.1300 H* NT-Pro-B Natriuret Pep 2610 H Total Protein 4.8 L Albumin 1.8 L D Globulin 3.0 Albumin/Globulin Ratio 0.6 L Venous Blood Potassium 5.1 Urine Color Stephanie Urine Clarity Clear Urine pH 5.0 Ur Specific [place] 1.027 Urine Protein 1+ H Urine Glucose (UA) Normal Urine Ketones Negative Urine Blood Negative Urine Nitrate Negative Urine Bilirubin 1+ H Urine Urobilinogen 2.0 H Ur Leukocyte Esterase Neg Urine WBC (Auto) 72 H Urine RBC (Auto) 4 H Ur Squamous Epith Cells 1 Urine Bacteria Many H 10/04/18 10/04/18 18:22 22:23 WBC RBC Hgb Hct MCV MCH MCHC RDW Plt Count MPV Neut % (Auto) Lymph % (Auto) [place] % (Auto) Eos % (Auto) Baso % (Auto) Neut # (Auto) Lymph # (Auto) [place] # (Auto) Eos # (Auto) Baso # (Auto) PT INR APTT pO2 37 VBG pH 7.23 L VBG pCO2 28 L VBG HCO3 12.7 VBG Total CO2 12.6 L VBG O2 Sat (Calc) 57.8 VBG Base Excess -14.3 L VBG Potassium 4.0 Sodium 145.0 Chloride 122.0 H Glucose 59 L Lactate 3.6 H Potassium Carbon Dioxide Anion Gap BUN Creatinine Est GFR ( Amer) Est GFR (Non-Af Amer) POC Glucose (mg/dL) 93 Random Glucose Calcium Total Bilirubin AST ALT Alkaline Phosphatase Troponin I NT-Pro-B Natriuret Pep Total Protein Albumin Globulin Albumin/Globulin Ratio Venous Blood Potassium 4.0 Urine Color Urine Clarity Urine pH Ur Specific [place] Urine Protein Urine Glucose (UA) Urine Ketones Urine Blood Urine Nitrate Urine Bilirubin Urine Urobilinogen Ur Leukocyte Esterase Urine WBC (Auto) Urine RBC (Auto) Ur Squamous Epith Cells Urine Bacteria
[2018-10-05] MEDS: Enoxaparin 30 mg Syringe SC SCH (15:43)
[2018-10-05] MEDS: Sodium Chloride 0.9% 1,000 ML IV SCH (16:34)
[2018-10-05] MEDS ORDERED: Dextrose 50% SYRINGE Inj (50 ml) IV STA (20:05)
[2018-10-05] MEDS ORDERED: Dextrose 50% SYRINGE Inj (50 ml) ONE (20:05)
--- NOTE | 2018-10-05 20:24 | PCM.ANES ---
Anesthesia Emergent Intubation - Diagnosis Working Diagnosis:: acute respiratory failure - Consult Reason for Consult:: endotracheal intubation - Intubation Attempts Previous Number of Intubation Attempts:: 0 - Pre-Intubation Vital Signs Blood Pressure: 66/40 O2 Sat: 100 Oxygen Delivery Method: Non-Rebreather Level Of Consciousness: Lethargic Intubation Meds Given: Etomidate (4 mg, rocuronium 70 mg) - Airway Management Rapid Sequence: Yes Cricoid Pressure: Yes - Method of Intubation Intubation Method: Oral ETT ETT Size: 7.5 Lipline@: 21 Easy: Yes Atramatic: No - Intubation Devices Vera Blade Size Used: 3 - Placement Confirmation Breath Sounds Present & Equal Bilaterally: Yes Gurgling Sounds Not Audible at Epigastrum: No Positive EtCO2: Yes Recommendations: Ventilator, Chest X Ray, ABG (sedation)
--- NOTE | 2018-10-05 20:32 | PCM.RRT ---
SALES PLANNING COORDINATOR Nurses Assessment - Situation Date: 10/05/18 Time SALES PLANNING COORDINATOR was called: 07:54 SALES PLANNING COORDINATOR Responder Arrival Time:: 07:55 SALES PLANNING COORDINATOR Location:: Med/Surg Room Number: 664 SALES PLANNING COORDINATOR Reason for Call: Looks Sicker SALES PLANNING COORDINATOR Called By: RN - IV IV Inserted during SALES PLANNING COORDINATOR?: No IV Fluids Initiated During SALES PLANNING COORDINATOR?: Normal Saline - Respiratory SALES PLANNING COORDINATOR Delivery Method: Face Mask @% Oxygen Flow Rate: 15 Received Nebulizer Treatments: No Was the Patient Ventilated with Bag/Mask 100% O2?: Yes Secretions Suctioned?: Yes Was the Patient Intubated?: Yes Was the Patient Placed on a Ventilator?: No - Ventilator Settings Mode: PRVC - Medication Medications Administered During SALES PLANNING COORDINATOR: 2002 D50 50ml. 2008 Etimidate- given by anesthesiologist - Diagnostic Test Ordered EKG: Yes Chest X-Ray: No CT Scan: No CPR started during SALES PLANNING COORDINATOR?: No - Vital Signs Vital Signs: Rapid Response Vital Sign Blood Pressure 113/87 Pulse Rate 155 Respiratory Rate 14 Temperature 102.7 F Oxygen Saturation 100 - Sepsis Screen Part 1 Sepsis Screen Part 1: Hypotensive, Temperature over 100.6F - Time SALES PLANNING COORDINATOR Ended Time SALES PLANNING COORDINATOR Ended: 08:15 - Respiratory Oxygen Delivery Method: Face Mask @% Oxygen Flow Rate: 15 - Constitutional Appears: Chronically Ill - Head Head Exam: ATRAUMATIC, NORMAL INSPECTION, NORMOCEPHALIC - Respiratory Exam Respiratory Exam: Respiratory Distress - Cardiovascular Exam Cardiovascular Exam: Tachycardia, +S1, +S2 - GI/Abdominal Exam GI & Abdominal Exam: Distended, Normal Bowel Sounds - Neurological Exam Neurological Exam: absent: Alert, Awake, Oriented x3 Plan - Assessment of Findings&Treatment Plan SALES PLANNING COORDINATOR note Rapid response called for patient in [id number]. As patient is not able to make her own decisions, Patient's daughter expressed her wishes for Patient's DNR/DNI status to be rescinded to Full code for treatment and intubation. Upon arrival to the room, patients blood pressure 67/42, HR 132, T 102.8, O2 sat @ 100, on face mask and tachypnea. Patient is not verbal. As per nurse, patient has a WBC. ICU has been consulted. Anesthesia consulted, called for rapid intubation and was done in room. one dose of levophed administered to patient. Patient was transferred to ICU. Vitals at ICU BP 83/43, 157, 100% O2, T 103.6. Portable chest xray ordered. Attending to be notified.
--- NOTE | 2018-10-05 20:39 | CP.PCM.CON ---
History of Present Illness - History of Present Illness History of Present Illness: 78 year old female with a history of stage IV gastric cancer on chemotherapy with Dr. Jimenez (last given about 2 weeks ago), admitted with septic shock. The patient was recently treated for [place] [facility] and was sent to the [place]. At the [place], her daughter states she began to become more fatigued and sent to the ER. In the ER she was hypotensive, tachycardic and intubated. She had been DNR/DNI but this was rescinded by the patients daughter. Past medical, surgical, family, social history cannot be obtained from the patient. Allergies: NKA per documentation. Past Patient History - Past Medical History & Family History Past Medical History?: Yes - Past Social History Smoking Status: Never Smoked - CARDIAC Hx Atrial Fibrillation: Yes Hx Hypertension: Yes - PULMONARY Hx Asthma: Yes - NEUROLOGICAL Hx Alzheimer's Disease: Yes Hx Dementia: Yes - HEENT Hx HEENT Problems: No Hx Cataracts: Yes Other/Comment: Sinus syndrome - RENAL Hx Chronic Kidney Disease: No - ENDOCRINE/METABOLIC Hx Hypothyroidism: Yes - HEMATOLOGICAL/ONCOLOGICAL Hx Blood Disorders: No - INTEGUMENTARY Hx Dermatological Problems: No - MUSCULOSKELETAL/RHEUMATOLOGICAL Hx Musculoskeletal Disorders: No Hx Falls: Yes - GASTROINTESTINAL Hx Gastrointestinal Disorders: No Hx Gastroesophageal Reflux: No Other/Comment: Stomach CA - GENITOURINARY/GYNECOLOGICAL Hx Genitourinary Disorders: No - PSYCHIATRIC Hx Substance Use: No - SURGICAL HISTORY Hx Surgeries: Yes Hx Cataract Extraction: Yes Hx Section: Yes (37 yrs ago) Hx Orthopedic Surgery: Yes (knee replacement) Other/Comment: l knee surgery. Pacemaker - ANESTHESIA Hx Anesthesia: Yes Hx Anesthesia Reactions: No Hx Malignant Hyperthermia: No Meds Allergies/Adverse Reactions: Allergies Allergy/AdvReac Type Severity Reaction Status Date / Time No Known Allergies Allergy Verified 08/22/15 09:05 - Medications Medications: Current Medications Acetaminophen (Tylenol 650 Mg Supp) 650 mg UT Q8 PRN PRN Reason: Fever >100.4 F Last Admin: 10/05/18 15:42 Dose: 650 mg Enoxaparin Sodium (Lovenox) 30 mg SC DAILY [facility] Last Admin: 10/05/18 15:43 Dose: Not Given Meropenem 500 mg/ Sodium (Chloride) 100 mls @ 100 mls/hr IVPB Q12H [facility]; Protocol Last Admin: 10/05/18 11:42 Dose: 100 mls/hr Sodium Chloride (Sodium Chloride 0.9%) 1,000 mls @ 100 mls/hr IV .Q10H [facility] Last Admin: 10/05/18 16:34 Dose: 100 mls/hr Norepinephrine Bitartrate 4 mg (/ Sodium Chloride) 254 mls @ 15.24 mls/hr IV .[id number] PRN; Protocol PRN Reason: TITRATE PER MD ORDER Morphine Sulfate (Morphine) 2 mg IVP Q4 PRN PRN Reason: Pain, severe (8-10) Last Admin: 10/05/18 16:34 Dose: 2 mg Pantoprazole Sodium (Protonix Inj) 40 mg IVP DAILY [facility] Last Admin: 10/05/18 09:07 Dose: 40 mg Physical Exam - Head Exam Head Exam: ATRAUMATIC - Eye Exam Eye Exam: Normal appearance - ENT Exam ENT Exam: Mucous Membranes Dry - Respiratory Exam Respiratory Exam: NORMAL BREATHING PATTERN - Cardiovascular Exam Cardiovascular Exam: +S2, +S4 - GI/Abdominal Exam GI & Abdominal Exam: Normal Bowel Sounds - Extremities Exam Extremities exam: Positive for: pedal edema - Skin Skin Exam: Warm Results - Vital Signs Recent Vital Signs: Last Vital Signs Temp 99.1 F 10/05/18 19:09 Pulse 153 H 10/05/18 15:10 Resp 18 10/05/18 15:10 BP 66/40 L 10/05/18 20:25 Pulse Ox 100 10/05/18 20:25 - Labs Result Diagrams: 10/07/18 05:42 10/07/18 05:42 Labs: Laboratory Results - last 24 hr 10/04/18 22:23 POC Glucose (mg/dL) 93 Assessment & Plan (1) Anemia Assessment and Plan: likely chronic disease and recent chemotherapy retic count, b12, folate, ferritin transfusion support PRN Status: Acute (2) Thrombocytopenia Assessment and Plan: mild may be related to recent chemotherapy and sepsis fibrinogen to rule out evolving DIC Status: Acute (3) Leukocytosis Assessment and Plan: on antibiotics Status: Acute (4) Gastric cancer Assessment and Plan: on chemotherapy palliative care evaluation Thank you for this interesting consult. Status: Acute
[2018-10-05] MEDS ORDERED: Acetaminophen IV 1,000 MG in Premixed IV 1 EA IV ONE (20:50)
[2018-10-05 21:48] LABS: ARTERIAL BLOOD GAS HCO3 15.2 mmol/L (21-28); ARTERIAL BLOOD GAS PCO2 44 mm/Hg (35-45); ARTERIAL BLOOD GAS PH 7.16 (7.35-7.45); ARTERIAL BLOOD GAS PO2 227 mm/Hg (80-100); ARTERIAL BLOOD GAS TCO2 17.1 mmol/L (22-28)
--- NOTE | 2018-10-05 22:18 | PCM.PROC ---
Procedures Attestation:: I certify that I have explained the specified Operation(s) or Procedure(s), risks, benefits and reasonable alternatives to the Patient and/or other person responsible. The opportunity was given to ask questions and all questions answered - Central Line Placement Right Internal Jugular Triple Lumen Catheter Aseptic technique was employed throughout the procedure: Hand Hygiene done prior to procedure, Full sterile barriers (mask, hair cover, sterile gown, sterile gloves), Full body sterile drape, Chloraprep Antiseptic: 30 second prep for IJ or SC sites CVP Time Out Performed: Yes Pt. Placed on Pulse Ox Monitor: Yes Central Line Prep: Chlorhexidine-Alcohol Combination Ultrasound Used for Placement: Yes Central Line Lumen Inserted: triple Central Line Length: 20 cm Post Procedure: Sutured in Place, Good Blood Return, All Ports Aspirated, Flushed, Capped, Sterile Dressing Applied Secured by: Suture Post procedure dressing: Clear vapor permeable, Chlorhexidine disc (Biopatch) Post Procedure X-Ray: Yes Patient Tolerated Procedure: Well Immediate Complications: None Additional Comments: Telephone consent obtained and witnessed by two nurses. Daughter: Eliana Kincaid Post Procedure Xray with tip of catheter in the atrial-caval junction. No pneumothorax noted. Patient tolerated procedure well. No immediate complications noted
--- NOTE | 2018-10-05 22:32 | CP.PCM.CON ---
History of Present Illness - History of Present Illness History of Present Illness: ICU evaluation requested for hypotensive ,tacycardic,febrile patient with shallow breathing.Patient was DNR/DNI which was rescinded by daughter.Patient was being treated for sepsis 78 y/o female, with history of malignant gastric cancer, asthma, hypothyroidism, alzheimer's, sick sinus syndrome, pacemaker, and atrial fibrillation, is admitted 10/04/18 after being found unresponsive at [facility]. As per EMS, the patient was discharged from [facility] 2 days ago with a UTI and was supposed to be receiving IV fluids and IV antibiotics but her IV line came out > 24 hrs ago so patient has not been receiving her IV medication(s). Patient was found unresponsive, sinus tachycardic at 130 bpm, hypotensive, and tachypneic by EMS and patient is not verbal. patient was intubated,started on pressors and transferred to ICU Review of Systems - Review of Systems Review of Systems: patient unresponsive Past Patient History - Past Medical History & Family History Past Medical History?: Yes - Past Social History Smoking Status: Never Smoked - CARDIAC Hx Atrial Fibrillation: Yes Hx Hypertension: Yes - PULMONARY Hx Asthma: Yes - NEUROLOGICAL Hx Alzheimer's Disease: Yes Hx Dementia: Yes - HEENT Hx HEENT Problems: No Hx Cataracts: Yes Other/Comment: Sinus syndrome - RENAL Hx Chronic Kidney Disease: No - ENDOCRINE/METABOLIC Hx Hypothyroidism: Yes - HEMATOLOGICAL/ONCOLOGICAL Hx Blood Disorders: No - INTEGUMENTARY Hx Dermatological Problems: No - MUSCULOSKELETAL/RHEUMATOLOGICAL Hx Musculoskeletal Disorders: No Hx Falls: Yes - GASTROINTESTINAL Hx Gastrointestinal Disorders: No Hx Gastroesophageal Reflux: No Other/Comment: Stomach CA - GENITOURINARY/GYNECOLOGICAL Hx Genitourinary Disorders: No - PSYCHIATRIC Hx Substance Use: No - SURGICAL HISTORY Hx Surgeries: Yes Hx Cataract Extraction: Yes Hx Section: Yes (37 yrs ago) Hx Orthopedic Surgery: Yes (knee replacement) Other/Comment: l knee surgery. Pacemaker - ANESTHESIA Hx Anesthesia: Yes Hx Anesthesia Reactions: No Hx Malignant Hyperthermia: No Meds Allergies/Adverse Reactions: Allergies Allergy/AdvReac Type Severity Reaction Status Date / Time No Known Allergies Allergy Verified 08/22/15 09:05 - Medications Medications: Current Medications Acetaminophen (Tylenol 650 Mg Supp) 650 mg MD Q8 PRN PRN Reason: Fever >100.4 F Last Admin: 10/05/18 15:42 Dose: 650 mg Enoxaparin Sodium (Lovenox) 30 mg SC DAILY [facility] Last Admin: 10/05/18 15:43 Dose: Not Given Meropenem 500 mg/ Sodium (Chloride) 100 mls @ 100 mls/hr IVPB Q12H [facility]; Protocol Last Admin: 10/05/18 11:42 Dose: 100 mls/hr Sodium Chloride (Sodium Chloride 0.9%) 1,000 mls @ 100 mls/hr IV .Q10H [facility] Last Admin: 10/05/18 16:34 Dose: 100 mls/hr Norepinephrine Bitartrate 4 mg (/ Sodium Chloride) 254 mls @ 15.24 mls/hr IV .[id number] PRN; Protocol PRN Reason: TITRATE PER MD ORDER Last Titration: 10/05/18 22:24 Dose: 6 mcg/min, 22.86 mls/hr Morphine Sulfate (Morphine) 2 mg IVP Q4 PRN PRN Reason: Pain, severe (8-10) Last Admin: 10/05/18 16:34 Dose: 2 mg Pantoprazole Sodium (Protonix Inj) 40 mg IVP DAILY [facility] Last Admin: 10/05/18 09:07 Dose: 40 mg Physical Exam - Constitutional Additional comments: orally intubated - Head Exam Head Exam: ATRAUMATIC, NORMAL INSPECTION - Eye Exam Eye Exam: absent: Scleral icterus - ENT Exam ENT Exam: Mucous Membranes Dry - Neck Exam Neck exam: Positive for: Normal Inspection - Respiratory Exam Respiratory Exam: Clear to Auscultation Bilateral Additional comments: decreased airentry in bases - Cardiovascular Exam Cardiovascular Exam: Tachycardia - GI/Abdominal Exam GI & Abdominal Exam: Normal Bowel Sounds, Soft Additional comments: scar of previous surgery - Extremities Exam Extremities exam: Positive for: pedal edema - Neurological Exam Additional comments: unresponsive - Skin Skin Exam: Normal Color Results - Vital Signs Recent Vital Signs: Last Vital Signs Temp 99.1 F 10/05/18 19:09 Pulse 158 H 10/05/18 20:45 Resp 14 10/05/18 20:45 BP 85/42 L 10/05/18 20:45 Pulse Ox 100 10/05/18 20:45 - Labs Result Diagrams: 10/04/18 15:35 10/04/18 16:26 Labs: Laboratory Results - last 24 hr 10/05/18 21:45 Puncture Site Rb pCO2 44 pO2 227 H HCO3 15.2 L ABG pH 7.16 L* ABG Total CO2 17.1 L ABG O2 Saturation 100.0 H ABG Base Excess -12.6 L Tereso Test Na ABG Potassium 5.1 A-a O2 Difference 431.0 Respiratory Index 1.9 Sodium 142.0 Chloride 121.0 H Glucose 119 H Lactate 1.0 Vent Mode Prvc Mechanical Rate 14 FiO2 100.0 Tidal Volume 400 PEEP 5 Crit Value Called To Dr. spring Crit Value Called By Ottoniel mckeon Crit Value Read Back Y Blood Gas Notified Time 2147 Arterial Blood Potassium 5.1 - EKG Data EKG Interpreted by: Myself - Imaging and Cardiology Chest x-ray Status: Image reviewed by me Assessment & Plan - Assessment and Plan (Free Text) Assessment: 1.Respiratory failure/Hypotension/Sepsis,UTI Vent support,antibiotics,pressors 2.Carcinoma stomach f/u with Oncology 3.Alzheimers disease 4.Hypothyroidism not on meds TSH level patients prognosis is poor.Seen by Palliative care .Patients family changed patient to full code status discussed patients condition and poor prognosis,jail quality of life with daughter .
[2018-10-06 01:09] LABS: BASO # 0.1 K/uL (0.0-0.2); BASO % 0.4 % (0.0-2.0); EOS % 0.2 % (0.0-4.0); HEMOGLOBIN 9.1 g/dL (11.0-16.0); LYMPH # 1.1 K/uL (1.0-4.3); LYMPH % 7.7 % (20.0-40.0); MEAN CELL VOLUME 100.3 fL (81.0-99.0); MEAN CORPUSCULAR HEMOGLOBIN 31.8 pg (27.0-31.0); MEAN CORPUSCULAR HGB CONC 31.7 g/dL (33.0-37.0); MONO # 1.1 K/uL (0.0-0.8); NEUT # 11.5 K/uL (1.8-7.0); NEUT % 83.7 % (50.0-75.0); NRBC % 0.4 % (0.0-2.0); PLATELET COUNT 147 K/uL (130-400); RBC 2.86 Mil/uL (3.80-5.20); RED CELL DISTRIBUTION WIDTH 15.5 % (11.5-14.5); WHITE BLOOD COUNT 13.8 K/uL (4.8-10.8)
[2018-10-06 01:18] LABS: ALB/GLOB RATIO 0.6 (1.0-2.1); CALCIUM 6.9 mg/dl (8.6-10.4)
[2018-10-06 01:32] LABS: ARTERIAL BLOOD GAS HCO3 16.7 mmol/L (21-28); ARTERIAL BLOOD GAS PCO2 27 mm/Hg (35-45); ARTERIAL BLOOD GAS PH 7.32 (7.35-7.45); ARTERIAL BLOOD GAS PO2 187 mm/Hg (80-100); ARTERIAL BLOOD GAS TCO2 14.7 mmol/L (22-28)
[2018-10-06 01:58] LABS: ANISOCYTOSIS SLIGHT; BANDS 4 % (0-2); LYMPHOCYTE 8 % (20-40); MONOCYTE 9 % (0-10); NEUTROPHIL 79 % (50-75); PLATELET ESTIMATE NORMAL (NORMAL); POIKILOCYTOSIS SLIGHT; TOTAL CELLS COUNTED 100
[2018-10-06] MEDS: Sodium Chloride 0.9% 1,000 ML IV SCH ×3 (04:00→21:30)
[2018-10-06] MEDS: Enoxaparin 30 mg Syringe SC SCH (10:21)
[2018-10-06] MEDS: Dexmedetomidine Hydrochloride 200 MCG in Sodium Chloride 0.9% 48 ML IV PRN ×3 (10:22→18:54)
[2018-10-06] MEDS ORDERED: Vancomycin 1 gm/NS 200 ml 1 GM/200 ML BAG IVPB ONE (10:30)
[2018-10-06] MEDS ORDERED: Sodium Chloride 0.9% 1,000 ML IV ONE (10:45)
--- NOTE | 2018-10-06 11:39 | CP.CCUPN ---
<Mine Arizmendi - Last Filed: 10/06/18 12:46> CCU Subjective - Physician Review Subjective (Free Text): 10/06/18 11:36 Mine Arizmendi PGY1 Progress note for Dr. Alfonso Pt was examined at bedside this morning. She is arrousable, nonverbally responsive to questions. She endorses difficulty breathing and throat pain. She denies chest pain, abdominal pain, nausea, vomiting. CCU Objective - Vital Signs / Intake & Output Intake and Output (Last 8hrs): Intake & Output 10/05/18 10/06/18 10/06/18 22:59 06:59 14:59 Intake Total 282.5 1962 Output Total 300 Balance 282.5 1662 Weight 161 lb Intake: IV 54 454 Intake, IV Amount 228.5 1508 ri ij tlc 56 708 right shoulder 22.5 rt ij middle port 150 800 Output: Urine 300 Urine, Voided 300 - Physical Exam Head: Positive for: Atraumatic, Normocephalic Pupils: Positive for: PERRL Extroacular Muscles: Positive for: EOMI Conjunctiva: Positive for: Normal, Icteric Mouth: Positive for: Dry Respiratory/Chest: Positive for: Decreased Breath Sounds. Negative for: Clear to Auscultation, Respiratory Distress, Wheezes, Rhonchi Cardiovascular: Positive for: Normal S1, S2, Tachycardic. Negative for: Murmurs , Rub, Gallop Abdomen: Positive for: Normal Bowel Sounds, Scars. Negative for: Tenderness, Distention, Peritoneal Signs Upper Extremity: Positive for: Normal Inspection. Negative for: Cyanosis, Edema Lower Extremity: Positive for: Edema Neurological: Negative for: Speech Normal Skin: Positive for: Dry - Medications Active Medications: Active Medications Generic Name Dose Route Start Last Admin Trade Name Freq PRN Reason Stop Dose Admin Acetaminophen 650 mg 10/05/18 15:36 10/05/18 15:42 Tylenol 650 Mg Supp ME 650 mg Q8 PRN Administration Fever >100.4 F Enoxaparin Sodium 30 mg 10/05/18 13:00 10/06/18 10:21 Lovenox SC 30 mg DAILY CHRISTIANO Administration Meropenem 500 mg/ Sodium 100 mls @ 100 mls/hr 10/05/18 11:30 10/05/18 22:41 Chloride IVPB 100 mls/hr Q12H CHRISTIANO Administration Protocol Sodium Chloride 1,000 mls @ 100 mls/hr 10/05/18 16:30 10/06/18 04:00 Sodium Chloride 0.9% IV 100 mls/hr .Q10H CHRISTIANO Administration Norepinephrine Bitartrate 4 mg 254 mls @ 15.24 mls/hr 10/05/18 20:02 10/06/18 04:56 / Sodium Chloride IV 24.4 mcg/min .[id number] PRN 93 mls/hr TITRATE PER MD ORDER Administration Protocol 4 MCG/MIN Vancomycin/Sodium Chloride 1 gm in 200 mls @ 133.333 mls/hr 10/06/18 10:30 10/06/18 10:47 Vancomycin 1 Gm/Ns 200 Ml IVPB 10/06/18 11:59 133.333 mls/hr ONCE ONE Administration Protocol Dexmedetomidine HCl 200 mcg/ 50 mls @ 3.65 mls/hr 10/06/18 09:53 10/06/18 10:22 Sodium Chloride IV 0.4 mcg/kg/hr TITR PRN 7.3 mls/hr Agitation Administration Protocol 0.2 MCG/KG/HR Sodium Chloride 1,000 mls @ 1,000 mls/hr 10/06/18 10:45 10/06/18 10:49 Sodium Chloride 0.9% IV 10/06/18 11:44 1,000 mls/hr .Q1H ONE Administration Morphine Sulfate 2 mg 10/04/18 19:51 10/05/18 16:34 Morphine IVP 2 mg Q4 PRN Administration Pain, severe (8-10) Pantoprazole Sodium 40 mg 10/04/18 20:00 10/06/18 10:20 Protonix Inj IVP 40 mg DAILY CHRISTIANO Administration - Patient Studies Lab Studies: Microbiology Studies 10/04/18 16:22 Urine Culture - Final Urine,Catheterized No Growth (<1,000 CFU/ML) 10/04/18 15:20 Blood Culture - Preliminary Blood Gram Positive Cocci Gram Stain - Final 10/04/18 16:00 Blood Culture - Preliminary Blood NO GROWTH AFTER 24 HOURS Lab Studies 10/06/18 10/06/18 10/06/18 Range/Units 01:05 00:59 00:59 WBC 13.8 H (4.8-10.8) K/uL RBC 2.86 L (3.80-5.20) Mil/uL Hgb 9.1 L (11.0-16.0) g/dL Hct 28.7 L (34.0-47.0) % MCV 100.3 H (81.0-99.0) fL MCH 31.8 H (27.0-31.0) pg MCHC 31.7 L (33.0-37.0) g/dL RDW 15.5 H (11.5-14.5) % Plt Count 147 (130-400) K/uL MPV 10.0 (7.2-11.7) fL Neut % (Auto) 83.7 H (50.0-75.0) % Lymph % (Auto) 7.7 L (20.0-40.0) % Bay % (Auto) 8.0 (0.0-10.0) % Eos % (Auto) 0.2 (0.0-4.0) % Baso % (Auto) 0.4 (0.0-2.0) % Neut # (Auto) 11.5 H (1.8-7.0) K/uL Lymph # (Auto) 1.1 (1.0-4.3) K/uL Bay # (Auto) 1.1 H (0.0-0.8) K/uL Eos # (Auto) 0.0 (0.0-0.7) K/uL Baso # (Auto) 0.1 (0.0-0.2) K/uL Neutrophils % (Manual) 79 H (50-75) % Band Neutrophils % 4 H (0-2) % Lymphocytes % (Manual) 8 L (20-40) % Monocytes % (Manual) 9 (0-10) % Platelet Estimate Normal (NORMAL) Poikilocytosis (manual Slight Anisocytosis (manual) Slight Puncture Site Rb pCO2 27 L (35-45) mm/Hg pO2 187 H (80-100) mm/Hg HCO3 16.7 L (21-28) mmol/L ABG pH 7.32 L (7.35-7.45) ABG Total CO2 14.7 L (22-28) mmol/L ABG O2 Saturation 100.0 H (95-98) % ABG Base Excess -10.6 L (-2.0-3.0) mmol/L Tereso Test Na ABG Potassium 4.9 (3.6-5.2) mmol/L A-a O2 Difference 278.0 mm/Hg Respiratory Index 1.5 Sodium 144.0 142 (132-148) mmol/l Chloride 122.0 H 119 H (98-107) mmol/L Glucose 103 (65-105) mg/dl Lactate 1.3 (0.7-2.1) mmol/L Vent Mode Prvc Mechanical Rate 18 FiO2 70.0 % Tidal Volume 450 PEEP 5 Crit Value Called To Crit Value Called By Crit Value Read Back Blood Gas Notified Time Potassium 5.2 (3.6-5.2) mmol/L Carbon Dioxide 14 L (22-30) mmol/L Anion Gap 15 (10-20) BUN 48 H (7-17) mg/dL Creatinine 2.3 H (0.7-1.2) mg/dL Est GFR ( Amer) 25 Est GFR (Non-Af Amer) 20 POC Glucose (mg/dL) (65-110) mg/dL Random Glucose 110 H (65-105) mg/dL Calcium 6.9 L (8.6-10.4) mg/dl Phosphorus 6.5 H (2.5-4.5) mg/dL Magnesium 2.2 (1.6-2.3) mg/dL Total Bilirubin 0.6 (0.2-1.3) mg/dL AST 1429 H (14-36) U/L ALT 164 H (9-52) U/L Alkaline Phosphatase 283 H (38-126) U/L Total Protein 5.4 L (6.3-8.3) g/dL Albumin 2.0 L (3.5-5.0) g/dL Globulin 3.4 (2.2-3.9) gm/dL Albumin/Globulin Ratio 0.6 L (1.0-2.1) Arterial Blood Potassium 4.9 (3.6-5.2) mmol/L 10/05/18 10/05/18 10/05/18 Range/Units 21:45 20:02 20:00 WBC (4.8-10.8) K/uL RBC (3.80-5.20) Mil/uL Hgb (11.0-16.0) g/dL Hct (34.0-47.0) % MCV (81.0-99.0) fL MCH (27.0-31.0) pg MCHC (33.0-37.0) g/dL RDW (11.5-14.5) % Plt Count (130-400) K/uL MPV (7.2-11.7) fL Neut % (Auto) (50.0-75.0) % Lymph % (Auto) (20.0-40.0) % Bay % (Auto) (0.0-10.0) % Eos % (Auto) (0.0-4.0) % Baso % (Auto) (0.0-2.0) % Neut # (Auto) (1.8-7.0) K/uL Lymph # (Auto) (1.0-4.3) K/uL Bay # (Auto) (0.0-0.8) K/uL Eos # (Auto) (0.0-0.7) K/uL Baso # (Auto) (0.0-0.2) K/uL Neutrophils % (Manual) (50-75) % Band Neutrophils % (0-2) % Lymphocytes % (Manual) (20-40) % Monocytes % (Manual) (0-10) % Platelet Estimate (NORMAL) Poikilocytosis (manual Anisocytosis (manual) Puncture Site Rb pCO2 44 (35-45) mm/Hg pO2 227 H (80-100) mm/Hg HCO3 15.2 L (21-28) mmol/L ABG pH 7.16 L* (7.35-7.45) ABG Total CO2 17.1 L (22-28) mmol/L ABG O2 Saturation 100.0 H (95-98) % ABG Base Excess -12.6 L (-2.0-3.0) mmol/L Tereso Test Na ABG Potassium 5.1 (3.6-5.2) mmol/L A-a O2 Difference 431.0 mm/Hg Respiratory Index 1.9 Sodium 142.0 (132-148) mmol/l Chloride 121.0 H (98-107) mmol/L Glucose 119 H (65-105) mg/dl Lactate 1.0 (0.7-2.1) mmol/L Vent Mode Prvc Mechanical Rate 14 FiO2 100.0 % Tidal Volume 400 PEEP 5 Crit Value Called To Dr. spring Crit Value Called By Ottoniel mckeon Crit Value Read Back Y Blood Gas Notified Time 2147 Potassium (3.6-5.2) mmol/L Carbon Dioxide (22-30) mmol/L Anion Gap (10-20) BUN (7-17) mg/dL Creatinine (0.7-1.2) mg/dL Est GFR ( Amer) Est GFR (Non-Af Amer) POC Glucose (mg/dL) 69 69 (65-110) mg/dL Random Glucose (65-105) mg/dL Calcium (8.6-10.4) mg/dl Phosphorus (2.5-4.5) mg/dL Magnesium (1.6-2.3) mg/dL Total Bilirubin (0.2-1.3) mg/dL AST (14-36) U/L ALT (9-52) U/L Alkaline Phosphatase (38-126) U/L Total Protein (6.3-8.3) g/dL Albumin (3.5-5.0) g/dL Globulin (2.2-3.9) gm/dL Albumin/Globulin Ratio (1.0-2.1) Arterial Blood Potassium 5.1 (3.6-5.2) mmol/L Laboratory Results - last 24 hr 10/05/18 10/05/18 10/05/18 20:00 20:02 21:45 WBC RBC Hgb Hct MCV MCH MCHC RDW Plt Count MPV Neut % (Auto) Lymph % (Auto) Bay % (Auto) Eos % (Auto) Baso % (Auto) Neut # (Auto) Lymph # (Auto) Bay # (Auto) Eos # (Auto) Baso # (Auto) Neutrophils % (Manual) Band Neutrophils % Lymphocytes % (Manual) Monocytes % (Manual) Platelet Estimate Poikilocytosis (manual Anisocytosis (manual) Puncture Site Rb pCO2 44 pO2 227 H HCO3 15.2 L ABG pH 7.16 L* ABG Total CO2 17.1 L ABG O2 Saturation 100.0 H ABG Base Excess -12.6 L Tereso Test Na ABG Potassium 5.1 A-a O2 Difference 431.0 Respiratory Index 1.9 Sodium 142.0 Chloride 121.0 H Glucose 119 H Lactate 1.0 Vent Mode Prvc Mechanical Rate 14 FiO2 100.0 Tidal Volume 400 PEEP 5 Crit Value Called To Dr. spring Crit Value Called By Ottoniel mckeon Crit Value Read Back Y Blood Gas Notified Time 2147 Potassium Carbon Dioxide Anion Gap BUN Creatinine Est GFR ( Amer) Est GFR (Non-Af Amer) POC Glucose (mg/dL) 69 69 Random Glucose Calcium Phosphorus Magnesium Total Bilirubin AST ALT Alkaline Phosphatase Total Protein Albumin Globulin Albumin/Globulin Ratio Arterial Blood Potassium 5.1 10/06/18 10/06/18 10/06/18 00:59 00:59 01:05 WBC 13.8 H RBC 2.86 L Hgb 9.1 L Hct 28.7 L MCV 100.3 H MCH 31.8 H MCHC 31.7 L RDW 15.5 H Plt Count 147 MPV 10.0 Neut % (Auto) 83.7 H Lymph % (Auto) 7.7 L Bay % (Auto) 8.0 Eos % (Auto) 0.2 Baso % (Auto) 0.4 Neut # (Auto) 11.5 H Lymph # (Auto) 1.1 Bay # (Auto) 1.1 H Eos # (Auto) 0.0 Baso # (Auto) 0.1 Neutrophils % (Manual) 79 H Band Neutrophils % 4 H Lymphocytes % (Manual) 8 L Monocytes % (Manual) 9 Platelet Estimate Normal Poikilocytosis (manual Slight Anisocytosis (manual) Slight Puncture Site Rb pCO2 27 L pO2 187 H HCO3 16.7 L ABG pH 7.32 L ABG Total CO2 14.7 L ABG O2 Saturation 100.0 H ABG Base Excess -10.6 L Tereso Test Na ABG Potassium 4.9 A-a O2 Difference 278.0 Respiratory Index 1.5 Sodium 142 144.0 Chloride 119 H 122.0 H Glucose 103 Lactate 1.3 Vent Mode Prvc Mechanical Rate 18 FiO2 70.0 Tidal Volume 450 PEEP 5 Crit Value Called To Crit Value Called By Crit Value Read Back Blood Gas Notified Time Potassium 5.2 Carbon Dioxide 14 L Anion Gap 15 BUN 48 H Creatinine 2.3 H Est GFR ( Amer) 25 Est GFR (Non-Af Amer) 20 POC Glucose (mg/dL) Random Glucose 110 H Calcium 6.9 L Phosphorus 6.5 H Magnesium 2.2 Total Bilirubin 0.6 AST 1429 H ALT 164 H Alkaline Phosphatase 283 H Total Protein 5.4 L Albumin 2.0 L Globulin 3.4 Albumin/Globulin Ratio 0.6 L Arterial Blood Potassium 4.9 Review of Systems - Review of Systems Review of Systems: as per HPI Assessment/Plan - Assessment and Plan (Free Text) Assessment: 78 yo F with PMH malignant gastric cancer, asthma, hypothyroidism, alzheimer's, sick sinus syndrome, pacemaker, and atrial fibrillation is admitted for sepsis, dehydration, and AMS on 10/04/18 after being found unresponsive at [facility]. 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 Pt intubated on the floor and admitted to ICU for further monitoring. Plan: Neuro - no focal deficits - precedex Cardiovascular - h/o A.fib, sick sinus syndrome - hypotensive, tachycardic - CXR 10/06: improved venous congestion - CXR 10/05: R central venous catheter tip extending into R atrium, ET tube extending into midthoracic trachea. L sided pacemaker. mild venous congestion. small L pleural effusion. cardiomegaly, enlarged ectatic aorta. - troponin elevated 0.13 - BNP 2610 - levophed @24/8 mcg/min - maintain normotension - Cardiology consulted, Dr. Zapien - f/u recs Pulm - intubated - CXR 10/06: improved venous congestion - CXR 10/05: R central venous catheter tip extending into R atrium, ET tube extending into midthoracic trachea. L sided pacemaker. mild venous congestion. small L pleural effusion. cardiomegaly, enlarged ectatic aorta. - cpap trial - maintain SpO2 >92% GI - transaminitis - continue to monitor - protonix 40mg IV daily Renal - RACHELLE - BUN/Cr 48/2.3 - fluid challenge given - NS @100cc/hr - I/Os Heme - H/H 9.1/28.7 - h/o gastric cancer - Heme/onc consulted, Dr. Gonzáles - f/u recs ID - Sepsis, secondary to bactermia - pt afebrile, Tmax 101.7 on 10/05 - BCx pos for Gram+ cocci in clusters - UCx neg - merem 500mg IV q12 - vanco 1g IV (1 dose) PPX GI: protonix DVT: lovenox 30 Pt seen and case reviewed with Dr. Alfonso <Kevin Alfonso S - Last Filed: 10/06/18 18:20> CCU Subjective - Physician Review Critical Care Time Spent (in minutes): 40 CCU Objective - Vital Signs / Intake & Output Vital Signs (Last 4 hours): Vital Signs Temp Pulse Resp BP Pulse Ox 10/06/18 17:52 102 H 21 89/55 L 100 10/06/18 17:15 103 H 18 100 10/06/18 17:02 104 H 20 88/59 L 100 10/06/18 17:00 105 H 19 100 10/06/18 16:45 104 H 19 100 10/06/18 16:32 116 H 18 92/57 L 100 10/06/18 16:30 118 H 20 100 10/06/18 16:15 108 H 18 100 10/06/18 16:02 106 H 18 92/59 L 100 10/06/18 16:00 98.4 F 104 H 17 100 10/06/18 15:45 104 H 18 100 10/06/18 15:37 126 H 18 93/60 L 100 10/06/18 15:32 125 H 19 96/58 L 100 10/06/18 15:30 125 H 19 100 10/06/18 15:15 105 H 18 100 10/06/18 15:00 105 H 25 H 100 10/06/18 14:49 107 H 20 99/65 L 100 10/06/18 14:45 110 H 28 H 100 10/06/18 14:34 119 H 20 91/52 L 100 10/06/18 14:30 121 H 18 100 Intake and Output (Last 8hrs): Intake & Output 10/06/18 10/06/18 10/06/18 06:59 14:59 22:59 Intake Total 1962 1966.3 581.3 Output Total 300 770 80 Balance 1662 1196.3 501.3 Weight 161 lb Intake: IV 454 304 254 Intake, IV Amount 1508 1662.3 327.3 Right Medial Port 63.3 27.3 Right Proximal Port 1599 300 ri ij tlc 708 rt ij middle port 800 Output: Urine 300 770 80 Urethral ([place]el[place]) 770 80 Urine, Voided 300 Other: # Bowel Movements 0 1 - Medications Active Medications: Active Medications Generic Name Dose Route Start Last Admin Trade Name Freq PRN Reason Stop Dose Admin Acetaminophen 650 mg 10/05/18 15:36 10/05/18 15:42 Tylenol 650 Mg Supp ME 650 mg Q8 PRN Administration Fever >100.4 F Enoxaparin Sodium 30 mg 10/05/18 13:00 10/06/18 10:21 Lovenox SC 30 mg DAILY CHRISTIANO Administration Meropenem 500 mg/ Sodium 100 mls @ 100 mls/hr 10/05/18 11:30 10/06/18 11:57 Chloride IVPB 100 mls/hr Q12H CHRISTIANO Administration Protocol Sodium Chloride 1,000 mls @ 100 mls/hr 10/05/18 16:30 10/06/18 11:49 Sodium Chloride 0.9% IV 100 mls/hr .Q10H CHRISTIANO Administration Norepinephrine Bitartrate 4 mg 254 mls @ 15.24 mls/hr 10/05/18 20:02 10/06/18 17:52 / Sodium Chloride IV 20 mcg/min .[id number] PRN 76.2 mls/hr TITRATE PER MD ORDER Administration Protocol 4 MCG/MIN Dexmedetomidine HCl 200 mcg/ 50 mls @ 3.65 mls/hr 10/06/18 09:53 10/06/18 14:12 Sodium Chloride IV 0.5 mcg/kg/hr TITR PRN 9.13 mls/hr Agitation Administration Protocol 0.2 MCG/KG/HR Sodium Chloride 500 mls @ 500 mls/hr 10/06/18 17:30 Sodium Chloride 0.9% IV 10/06/18 18:29 .Q1H CHRISTIANO Morphine Sulfate 2 mg 10/04/18 19:51 10/05/18 16:34 Morphine IVP 2 mg Q4 PRN Administration Pain, severe (8-10) Pantoprazole Sodium 40 mg 10/04/18 20:00 10/06/18 10:20 Protonix Inj IVP 40 mg DAILY CHRISTIANO Administration - Patient Studies Lab Studies: Microbiology Studies 10/04/18 16:00 Blood Culture - Preliminary Blood NO GROWTH AFTER 48 HOURS 10/04/18 15:20 S.aureus & Coag-Neg Staph PNA FISH - Final Blood Blood Culture - Preliminary Gram Positive Cocci Gram Stain - Final 10/04/18 16:22 Urine Culture - Final Urine,Catheterized No Growth (<1,000 CFU/ML) Lab Studies 10/06/18 10/06/18 10/06/18 Range/Units 01:05 00:59 00:59 WBC 13.8 H (4.8-10.8) K/uL RBC 2.86 L (3.80-5.20) Mil/uL Hgb 9.1 L (11.0-16.0) g/dL Hct 28.7 L (34.0-47.0) % MCV 100.3 H (81.0-99.0) fL MCH 31.8 H (27.0-31.0) pg MCHC 31.7 L (33.0-37.0) g/dL RDW 15.5 H (11.5-14.5) % Plt Count 147 (130-400) K/uL MPV 10.0 (7.2-11.7) fL Neut % (Auto) 83.7 H (50.0-75.0) % Lymph % (Auto) 7.7 L (20.0-40.0) % Bay % (Auto) 8.0 (0.0-10.0) % Eos % (Auto) 0.2 (0.0-4.0) % Baso % (Auto) 0.4 (0.0-2.0) % Neut # (Auto) 11.5 H (1.8-7.0) K/uL Lymph # (Auto) 1.1 (1.0-4.3) K/uL Bay # (Auto) 1.1 H (0.0-0.8) K/uL Eos # (Auto) 0.0 (0.0-0.7) K/uL Baso # (Auto) 0.1 (0.0-0.2) K/uL Neutrophils % (Manual) 79 H (50-75) % Band Neutrophils % 4 H (0-2) % Lymphocytes % (Manual) 8 L (20-40) % Monocytes % (Manual) 9 (0-10) % Platelet Estimate Normal (NORMAL) Poikilocytosis (manual Slight Anisocytosis (manual) Slight Puncture Site Rb pCO2 27 L (35-45) mm/Hg pO2 187 H (80-100) mm/Hg HCO3 16.7 L (21-28) mmol/L ABG pH 7.32 L (7.35-7.45) ABG Total CO2 14.7 L (22-28) mmol/L ABG O2 Saturation 100.0 H (95-98) % ABG Base Excess -10.6 L (-2.0-3.0) mmol/L Tereso Test Na ABG Potassium 4.9 (3.6-5.2) mmol/L A-a O2 Difference 278.0 mm/Hg Respiratory Index 1.5 Sodium 144.0 142 (132-148) mmol/l Chloride 122.0 H 119 H (98-107) mmol/L Glucose 103 (65-105) mg/dl Lactate 1.3 (0.7-2.1) mmol/L Vent Mode Prvc Mechanical Rate 18 FiO2 70.0 % Tidal Volume 450 PEEP 5 Crit Value Called To Crit Value Called By Crit Value Read Back Blood Gas Notified Time Potassium 5.2 (3.6-5.2) mmol/L Carbon Dioxide 14 L (22-30) mmol/L Anion Gap 15 (10-20) BUN 48 H (7-17) mg/dL Creatinine 2.3 H (0.7-1.2) mg/dL Est GFR ( Amer) 25 Est GFR (Non-Af Amer) 20 POC Glucose (mg/dL) (65-110) mg/dL Random Glucose 110 H (65-105) mg/dL Calcium 6.9 L (8.6-10.4) mg/dl Phosphorus 6.5 H (2.5-4.5) mg/dL Magnesium 2.2 (1.6-2.3) mg/dL Total Bilirubin 0.6 (0.2-1.3) mg/dL AST 1429 H (14-36) U/L ALT 164 H (9-52) U/L Alkaline Phosphatase 283 H (38-126) U/L Total Protein 5.4 L (6.3-8.3) g/dL Albumin 2.0 L (3.5-5.0) g/dL Globulin 3.4 (2.2-3.9) gm/dL Albumin/Globulin Ratio 0.6 L (1.0-2.1) Arterial Blood Potassium 4.9 (3.6-5.2) mmol/L 12/10/18 12/10/18 12/10/18 Range/Units 21:45 20:02 20:00 WBC (4.8-10.8) K/uL RBC (3.80-5.20) Mil/uL Hgb (11.0-16.0) g/dL Hct (34.0-47.0) % MCV (81.0-99.0) fL MCH (27.0-31.0) pg MCHC (33.0-37.0) g/dL RDW (11.5-14.5) % Plt Count (130-400) K/uL MPV (7.2-11.7) fL Neut % (Auto) (50.0-75.0) % Lymph % (Auto) (20.0-40.0) % Bay % (Auto) (0.0-10.0) % Eos % (Auto) (0.0-4.0) % Baso % (Auto) (0.0-2.0) % Neut # (Auto) (1.8-7.0) K/uL Lymph # (Auto) (1.0-4.3) K/uL Bay # (Auto) (0.0-0.8) K/uL Eos # (Auto) (0.0-0.7) K/uL Baso # (Auto) (0.0-0.2) K/uL Neutrophils % (Manual) (50-75) % Band Neutrophils % (0-2) % Lymphocytes % (Manual) (20-40) % Monocytes % (Manual) (0-10) % Platelet Estimate (NORMAL) Poikilocytosis (manual Anisocytosis (manual) Puncture Site Rb pCO2 44 (35-45) mm/Hg pO2 227 H (80-100) mm/Hg HCO3 15.2 L (21-28) mmol/L ABG pH 7.16 L* (7.35-7.45) ABG Total CO2 17.1 L (22-28) mmol/L ABG O2 Saturation 100.0 H (95-98) % ABG Base Excess -12.6 L (-2.0-3.0) mmol/L Tereso Test Na ABG Potassium 5.1 (3.6-5.2) mmol/L A-a O2 Difference 431.0 mm/Hg Respiratory Index 1.9 Sodium 142.0 (132-148) mmol/l Chloride 121.0 H (98-107) mmol/L Glucose 119 H (65-105) mg/dl Lactate 1.0 (0.7-2.1) mmol/L Vent Mode Prvc Mechanical Rate 14 FiO2 100.0 % Tidal Volume 400 PEEP 5 Crit Value Called To Dr. spring Crit Value Called By Ottoniel mckeon Crit Value Read Back Y Blood Gas Notified Time 2148 Potassium (3.6-5.2) mmol/L Carbon Dioxide (22-30) mmol/L Anion Gap (10-20) BUN (7-17) mg/dL Creatinine (0.7-1.2) mg/dL Est GFR ( Amer) Est GFR (Non-Af Amer) POC Glucose (mg/dL) 69 69 (65-110) mg/dL Random Glucose (65-105) mg/dL Calcium (8.6-10.4) mg/dl Phosphorus (2.5-4.5) mg/dL Magnesium (1.6-2.3) mg/dL Total Bilirubin (0.2-1.3) mg/dL AST (14-36) U/L ALT (9-52) U/L Alkaline Phosphatase (38-126) U/L Total Protein (6.3-8.3) g/dL Albumin (3.5-5.0) g/dL Globulin (2.2-3.9) gm/dL Albumin/Globulin Ratio (1.0-2.1) Arterial Blood Potassium 5.1 (3.6-5.2) mmol/L Laboratory Results - last 24 hr 10/05/18 10/05/18 10/05/18 20:00 20:02 21:45 WBC RBC Hgb Hct MCV MCH MCHC RDW Plt Count MPV Neut % (Auto) Lymph % (Auto) Bay % (Auto) Eos % (Auto) Baso % (Auto) Neut # (Auto) Lymph # (Auto) Bay # (Auto) Eos # (Auto) Baso # (Auto) Neutrophils % (Manual) Band Neutrophils % Lymphocytes % (Manual) Monocytes % (Manual) Platelet Estimate Poikilocytosis (manual Anisocytosis (manual) Puncture Site Rb pCO2 44 pO2 227 H HCO3 15.2 L ABG pH 7.16 L* ABG Total CO2 17.1 L ABG O2 Saturation 100.0 H ABG Base Excess -12.6 L Tereso Test Na ABG Potassium 5.1 A-a O2 Difference 431.0 Respiratory Index 1.9 Sodium 142.0 Chloride 121.0 H Glucose 119 H Lactate 1.0 Vent Mode Prvc Mechanical Rate 14 FiO2 100.0 Tidal Volume 400 PEEP 5 Crit Value Called To Dr. spring Crit Value Called By Ottoniel mckeon Crit Value Read Back Y Blood Gas Notified Time 214 Potassium Carbon Dioxide Anion Gap BUN Creatinine Est GFR ( Amer) Est GFR (Non-Af Amer) POC Glucose (mg/dL) 69 69 Random Glucose Calcium Phosphorus Magnesium Total Bilirubin AST ALT Alkaline Phosphatase Total Protein Albumin Globulin Albumin/Globulin Ratio Arterial Blood Potassium 5.1 10/06/18 10/06/18 10/06/18 00:59 00:59 01:05 WBC 13.8 H RBC 2.86 L Hgb 9.1 L Hct 28.7 L MCV 100.3 H MCH 31.8 H MCHC 31.7 L RDW 15.5 H Plt Count 147 MPV 10.0 Neut % (Auto) 83.7 H Lymph % (Auto) 7.7 L Bay % (Auto) 8.0 Eos % (Auto) 0.2 Baso % (Auto) 0.4 Neut # (Auto) 11.5 H Lymph # (Auto) 1.1 Bay # (Auto) 1.1 H Eos # (Auto) 0.0 Baso # (Auto) 0.1 Neutrophils % (Manual) 79 H Band Neutrophils % 4 H Lymphocytes % (Manual) 8 L Monocytes % (Manual) 9 Platelet Estimate Normal Poikilocytosis (manual Slight Anisocytosis (manual) Slight Puncture Site Rb pCO2 27 L pO2 187 H HCO3 16.7 L ABG pH 7.32 L ABG Total CO2 14.7 L ABG O2 Saturation 100.0 H ABG Base Excess -10.6 L Tereso Test Na ABG Potassium 4.9 A-a O2 Difference 278.0 Respiratory Index 1.5 Sodium 142 144.0 Chloride 119 H 122.0 H Glucose 103 Lactate 1.3 Vent Mode Prvc Mechanical Rate 18 FiO2 70.0 Tidal Volume 450 PEEP 5 Crit Value Called To Crit Value Called By Crit Value Read Back Blood Gas Notified Time Potassium 5.2 Carbon Dioxide 14 L Anion Gap 15 BUN 48 H Creatinine 2.3 H Est GFR ( Amer) 25 Est GFR (Non-Af Amer) 20 POC Glucose (mg/dL) Random Glucose 110 H Calcium 6.9 L Phosphorus 6.5 H Magnesium 2.2 Total Bilirubin 0.6 AST 1429 H ALT 164 H Alkaline Phosphatase 283 H Total Protein 5.4 L Albumin 2.0 L Globulin 3.4 Albumin/Globulin Ratio 0.6 L Arterial Blood Potassium 4.9 Attending/Attestation - Attestation I have personally seen and examined this patient.: Yes I have fully participated in the care of the patient.: Yes I have reviewed all pertinent clinical information: Yes Notes (Text): 10/06/18 18:19 patient seen and examined in the intensive care unit. 78 yo F with PMH malignant gastric cancer, asthma, hypothyroidism, alzheimer's, sick sinus syndrome, pacemaker, and atrial fibrillation is admitted for sepsis, dehydration, and AMS on 10/04/18 after being found unresponsive at [facility]. 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 Pt intubated on the floor and admitted to ICU for further monitoring. intubated on ventilatory support Patient is sedated on Precedex Continue antibiotics IV fluids Follow up ABG and chest x-ray
--- NOTE | 2018-10-06 11:55 | RAD ---
Chest x-ray single frontal view HISTORY: Intubation. COMPARISON: 10/04/2018 FINDINGS: Endotracheal tube extending into the midthoracic trachea. Left-sided pacemaker. Enlarged ectatic aorta. Atherosclerotic calcification at the aortic knob. Bilateral hilar prominence. Cardiomegaly. Venous congestion. Patchy increased markings at the left lung base with small left pleural effusion. Degenerative changes in the spine and shoulders. IMPRESSION: Endotracheal tube extending into the midthoracic trachea. Left-sided pacemaker. Enlarged ectatic aorta. Atherosclerotic calcification at the aortic knob. Bilateral hilar prominence. Cardiomegaly. Venous congestion. Patchy increased markings at the left lung base with small left pleural effusion.
[2018-10-06] MEDS: Meropenem 500 MG in Sodium Chloride 0.9% 100 ML IVPB SCH ×2 (11:57→23:30)
--- NOTE | 2018-10-06 11:57 | RAD ---
Chest x-ray single frontal view HISTORY: Triple-lumen catheter insertion. COMPARISON: 10/05/2018 FINDINGS: Right central venous catheter tip extending into the right atrium. Endotracheal tube extending into the midthoracic trachea. Left-sided pacemaker. Mild venous congestion. Bilateral hilar prominence. Patchy increased markings at the lung bases. Small left pleural effusion. Enlarged ectatic aorta. Cardiomegaly. Degenerative changes in the spine and shoulders. IMPRESSION: Right central venous catheter tip extending into the right atrium. Endotracheal tube extending into the midthoracic trachea. Left-sided pacemaker. Mild venous congestion. Bilateral hilar prominence. Patchy increased markings at the lung bases. Small left pleural effusion. Enlarged ectatic aorta. Cardiomegaly.
[2018-10-06] MEDS ORDERED: Metoprolol 1 mg/ml Inj IVP ONE (12:20)
--- NOTE | 2018-10-06 13:01 | RAD ---
Date of service: 10/06/2018 PROCEDURE: CHEST RADIOGRAPH, 1 VIEW HISTORY: intubated COMPARISON: 10/05/2018 FINDINGS: LUNGS: Left basal consolidation similar Endotracheal tube tip now projects 1.6 cm from the michell. Lung volumes shallow-yet less so than prior exam. PLEURA: No pneumothorax. Left pleural effusion along with left compressive atelectasis similar-appearing. Prior feathery discoid like atelectatic changes the right lung base-less pronounced now. CARDIOVASCULAR: There is presence of aortic atherosclerotic calcification on x-ray. Cardiomegaly-as before. Right internal jugular catheter tip cavoatrial junction-similar. Dual lead pacemaker device appears satisfactory in position as before. OSSEOUS STRUCTURES: No significant abnormalities. VISUALIZED UPPER ABDOMEN: Normal. OTHER FINDINGS: None. IMPRESSION: Shallow lung volumes-the left pleural effusion with inferred left compressive atelectasis is similar. No interval pathology noted. Endotracheal tube tip approximately 1.6 cm from the michell. Other findings as above.
--- NOTE | 2018-10-06 14:50 | CARD ---
APPROVED REPORT Date of service: 10/04/2018 EKG Measurement Heart [id number] <Conclusion> Sinus tachycardia with premature supraventricular complexes Otherwise normal ECG
--- NOTE | 2018-10-06 16:21 | CP.PCM.PN ---
Subjective - Date & Time of Evaluation Date of Evaluation: 10/06/18 Time of Evaluation: 10:00 - Subjective Subjective: clinically same Objective - Vital Signs/Intake and Output Vital Signs (last 24 hours): Temp Pulse Resp BP Pulse Ox 98.2 F 119 H 20 91/52 L 100 10/06/18 12:00 10/06/18 14:34 10/06/18 14:34 10/06/18 14:34 10/06/18 14:34 Intake and Output: 10/06/18 10/06/18 06:59 18:59 Intake Total 2244.5 1966.3 Output Total 300 770 Balance 1944.5 1196.3 - Medications Medications: Current Medications Acetaminophen (Tylenol 650 Mg Supp) 650 mg ME Q8 PRN PRN Reason: Fever >100.4 F Last Admin: 10/05/18 15:42 Dose: 650 mg Enoxaparin Sodium (Lovenox) 30 mg SC DAILY [facility] Last Admin: 10/06/18 10:21 Dose: 30 mg Meropenem 500 mg/ Sodium (Chloride) 100 mls @ 100 mls/hr IVPB Q12H CHRISTIANO; Protocol Last Admin: 10/06/18 11:57 Dose: 100 mls/hr Sodium Chloride (Sodium Chloride 0.9%) 1,000 mls @ 100 mls/hr IV .Q10H CHRISTIANO Last Admin: 10/06/18 11:49 Dose: 100 mls/hr Norepinephrine Bitartrate 4 mg (/ Sodium Chloride) 254 mls @ 15.24 mls/hr IV .[id number] PRN; Protocol PRN Reason: TITRATE PER MD ORDER Last Admin: 10/06/18 14:00 Dose: 20 mcg/min, 76.2 mls/hr Dexmedetomidine HCl 200 mcg/ (Sodium Chloride) 50 mls @ 3.65 mls/hr IV TITR PRN; Protocol PRN Reason: Agitation Last Admin: 10/06/18 14:12 Dose: 0.5 mcg/kg/hr, 9.13 mls/hr Morphine Sulfate (Morphine) 2 mg IVP Q4 PRN PRN Reason: Pain, severe (8-10) Last Admin: 10/05/18 16:34 Dose: 2 mg Pantoprazole Sodium (Protonix Inj) 40 mg IVP DAILY CHRISTIANO Last Admin: 10/06/18 10:20 Dose: 40 mg - Labs Labs: 10/06/18 00:59 10/06/18 00:59 PT 23.0 SECONDS (9.7-12.2) H 10/04/18 15:35 INR 2.1 10/04/18 15:35 APTT 32 SECONDS (21-34) 10/04/18 15:35 - Constitutional Appears: Well - Head Exam Head Exam: ATRAUMATIC, NORMAL INSPECTION, NORMOCEPHALIC - Eye Exam Eye Exam: EOMI, Normal appearance, PERRL Pupil Exam: NORMAL ACCOMODATION, PERRL - ENT Exam ENT Exam: Mucous Membranes Moist, Normal Exam - Neck Exam Neck Exam: Full ROM, Normal Inspection. absent: Lymphadenopathy - Respiratory Exam Respiratory Exam: Decreased Breath Sounds - Cardiovascular Exam Cardiovascular Exam: REGULAR RHYTHM, +S1, +S2 - GI/Abdominal Exam GI & Abdominal Exam: Soft, Diminished Bowel Sounds - Rectal Exam Rectal Exam: Deferred
[2018-10-06] MEDS ORDERED: Sodium Chloride 0.9% 500 ML IV SCH ×2 (17:30)
[2018-10-06] MEDS ORDERED: Sodium Chloride 0.9% 500 ML IV ONE (17:38)
[2018-10-07 01:24] LABS: GRANULAR CAST 5 /lpf (0-1); SQUAMOUS EPITHIAL 1 /hpf (0-5); URINE AMORPHOUS SEDIMENT FEW /ul (<OCC); URINE BILIRUBIN NEGATIVE (NEGATIVE); URINE CLARITY Hazy (Clear); URINE COLOR Yellow (YELLOW); URINE GLUCOSE (UA) NORMAL (Normal); URINE LEUKOCYTE ESTERASE NEG Leu/uL (Negative); URINE PROTEIN NEGATIVE (NEGATIVE); URINE UROBILINOGEN NORMAL mg/dL (0.2-1.0)
[2018-10-07 01:25] LABS: URINE BLOOD TRACE (NEGATIVE)
[2018-10-07] MEDS: Dexmedetomidine Hydrochloride 200 MCG in Sodium Chloride 0.9% 48 ML IV PRN ×5 (01:45→22:15)
[2018-10-07 04:17] LABS: ARTERIAL BLOOD GAS HEMOGLOBIN 10.7 g/dL (11.7-17.4); ARTERIAL BLOOD GAS O2 SAT 99.7 % (95-98); ARTERIAL BLOOD GAS PCO2 21 mm/Hg (35-45); ARTERIAL BLOOD GAS PH 7.34 (7.35-7.45); ARTERIAL BLOOD GAS PO2 167 mm/Hg (80-100); ARTERIAL BLOOD GAS TCO2 11.9 mmol/L (22-28)
[2018-10-07 05:48] LABS: BASO # 0.1 K/uL (0.0-0.2); BASO % 0.4 % (0.0-2.0); EOS % 0.2 % (0.0-4.0); LYMPH # 0.8 K/uL (1.0-4.3); LYMPH % 5.4 % (20.0-40.0); MEAN CELL VOLUME 100.2 fL (81.0-99.0); MEAN CORPUSCULAR HEMOGLOBIN 32.1 pg (27.0-31.0); MEAN PLATELET VOLUME 9.7 fL (7.2-11.7); MONO # 0.8 K/uL (0.0-0.8); MONO % 5.4 % (0.0-10.0); NEUT # 13.9 K/uL (1.8-7.0); NEUT % 88.6 % (50.0-75.0); NRBC % 0.8 % (0.0-2.0); PLATELET COUNT 118 K/uL (130-400); RBC 2.79 Mil/uL (3.80-5.20); RED CELL DISTRIBUTION WIDTH 15.2 % (11.5-14.5); WHITE BLOOD COUNT 15.7 K/uL (4.8-10.8)
[2018-10-07 06:16] LABS: ALB/GLOB RATIO 0.6 (1.0-2.1); ALBUMIN 1.9 g/dL (3.5-5.0); CALCIUM 6.7 mg/dl (8.6-10.4)
[2018-10-07] MEDS ORDERED: Sodium Chloride 0.9% 1,000 ML IV ONE ×2 (07:59→09:19)
[2018-10-07 08:08] LABS: BANDS 3 % (0-2); LYMPHOCYTE 6 % (20-40); MONOCYTE 3 % (0-10); NEUTROPHIL 88 % (50-75); NUCLEATED RED BLOOD CELL 1 % (0-0); PLATELET ESTIMATE SLIGHTLY DECREASED (NORMAL); TOTAL CELLS COUNTED 100
[2018-10-07 08:09] LABS: ANISOCYTOSIS SLIGHT; HYPOCHROMIC SLIGHT; POLYCHROMIC SLIGHT; TARGET CELLS SLIGHT
--- NOTE | 2018-10-07 08:44 | CP.CCUPN ---
<Mine Arizmendi - Last Filed: 10/07/18 09:39> CCU Subjective - Physician Review Subjective (Free Text): 10/07/18 08:41 Mine Arizmendi PGY1 Progress note for Dr. Alfonso Pt was examined at bedside this morning. She is sedated, unable to arrouse. ROS was not attainable at this time. CCU Objective - Vital Signs / Intake & Output Vital Signs (Last 4 hours): Vital Signs Temp Pulse Resp BP Pulse Ox 10/07/18 06:40 100.2 F H 10/07/18 06:09 117 H 17 99/66 L 100 10/07/18 05:55 118 H 18 98/69 L 100 10/07/18 05:53 104/67 10/07/18 05:40 100.7 F H 10/07/18 05:39 117 H 20 104/67 100 10/07/18 05:17 120 H 25 H 91/67 L 100 10/07/18 04:55 118 H 20 105/64 100 10/07/18 04:45 121 H 26 H 100 Intake and Output (Last 8hrs): Intake & Output 10/06/18 10/07/18 10/07/18 22:59 06:59 14:59 Intake Total 1585.10 2386.4500 Output Total 430 620 Balance 1155.10 1766.4500 Weight 176 lb 4.8 oz Intake: IV 653.25 716.7500 Intake, IV Amount 891.85 1549.7 Right Distal Port 19.05 676.9 Right Medial Port 72.8 72.8 Right Proximal Port 800 800 Tube Feeding 40 120 Output: Urine 430 620 Urethral (Montelongo) 430 620 Other: # Bowel Movements 0 0 - Physical Exam Head: Positive for: Atraumatic, Normocephalic Pupils: Positive for: PERRL Extroacular Muscles: Positive for: EOMI Conjunctiva: Positive for: Normal, Icteric Mouth: Positive for: Dry Respiratory/Chest: Positive for: Decreased Breath Sounds. Negative for: Clear to Auscultation, Respiratory Distress, Wheezes, Rhonchi Cardiovascular: Positive for: Normal S1, S2, Tachycardic. Negative for: Murmurs, Rub, Gallop Abdomen: Positive for: Normal Bowel Sounds, Scars. Negative for: Tenderness, Distention, Peritoneal Signs Upper Extremity: Positive for: Normal Inspection. Negative for: Cyanosis, Edema Lower Extremity: Positive for: Edema Neurological: Negative for: Speech Normal Skin: Positive for: Dry - Medications Active Medications: Active Medications Generic Name Dose Route Start Last Admin Trade Name Freq PRN Reason Stop Dose Admin Acetaminophen 650 mg 10/05/18 15:36 10/07/18 05:40 Tylenol 650 Mg Supp MA 650 mg Q8 PRN Administration Fever >100.4 F Apixaban 2.5 mg 10/07/18 10:00 Eliquis PO BID CHRISTIANO Enoxaparin Sodium 30 mg 10/05/18 13:00 10/06/18 10:21 Lovenox SC 30 mg DAILY CHRISTIANO Administration Meropenem 500 mg/ Sodium 100 mls @ 100 mls/hr 10/05/18 11:30 10/06/18 23:30 Chloride IVPB 100 mls/hr Q12H CHRISTIANO Administration Protocol Sodium Chloride 1,000 mls @ 100 mls/hr 10/05/18 16:30 10/06/18 21:30 Sodium Chloride 0.9% IV 100 mls/hr .Q10H CHRISTIANO Administration Norepinephrine Bitartrate 4 mg 254 mls @ 15.24 mls/hr 10/05/18 20:02 10/07/18 05:53 / Sodium Chloride IV 25 mcg/min .[id number] PRN 95.25 mls/hr TITRATE PER MD ORDER Administration Protocol 4 MCG/MIN Dexmedetomidine HCl 200 mcg/ 50 mls @ 3.65 mls/hr 10/06/18 09:53 10/07/18 01:45 Sodium Chloride IV 0.5 mcg/kg/hr TITR PRN 9.13 mls/hr Agitation Administration Protocol 0.2 MCG/KG/HR Sodium Chloride 1,000 mls @ 1,000 mls/hr 10/07/18 07:59 Sodium Chloride 0.9% IV 10/07/18 08:58 .Q1H ONE Morphine Sulfate 2 mg 10/04/18 19:51 10/07/18 04:03 Morphine IVP 2 mg Q4 PRN Administration Pain, severe (8-10) Pantoprazole Sodium 40 mg 10/04/18 20:00 10/06/18 10:20 Protonix Inj IVP 40 mg DAILY CHRISTIANO Administration Sucralfate 1 gm 10/07/18 10:00 Carafate Oral Susp PO DAILY CHRISTIANO - Patient Studies Lab Studies: Microbiology Studies 10/04/18 16:00 Blood Culture - Preliminary Blood NO GROWTH AFTER 48 HOURS 10/04/18 15:20 S.aureus & Coag-Neg Staph PNA FISH - Final Blood Blood Culture - Preliminary Gram Positive Cocci Gram Stain - Final 10/04/18 16:22 Urine Culture - Final Urine,Catheterized No Growth (<1,000 CFU/ML) Lab Studies 10/07/18 10/07/18 10/07/18 Range/Units 06:21 05:42 05:42 WBC 15.7 H (4.8-10.8) K/uL RBC 2.79 L (3.80-5.20) Mil/uL Hgb 9.0 L (11.0-16.0) g/dL Hct 28.0 L (34.0-47.0) % MCV 100.2 H (81.0-99.0) fL MCH 32.1 H (27.0-31.0) pg MCHC 32.0 L (33.0-37.0) g/dL RDW 15.2 H (11.5-14.5) % Plt Count 118 L D (130-400) K/uL MPV 9.7 (7.2-11.7) fL Neut % (Auto) 88.6 H (50.0-75.0) % Lymph % (Auto) 5.4 L (20.0-40.0) % [place] % (Auto) 5.4 (0.0-10.0) % Eos % (Auto) 0.2 (0.0-4.0) % Baso % (Auto) 0.4 (0.0-2.0) % Neut # (Auto) 13.9 H (1.8-7.0) K/uL Lymph # (Auto) 0.8 L (1.0-4.3) K/uL [place] # (Auto) 0.8 (0.0-0.8) K/uL Eos # (Auto) 0.0 (0.0-0.7) K/uL Baso # (Auto) 0.1 (0.0-0.2) K/uL Neutrophils % (Manual) 88 H (50-75) % Band Neutrophils % 3 H (0-2) % Lymphocytes % (Manual) 6 L (20-40) % Monocytes % (Manual) 3 (0-10) % Nucleated RBC % 1 H (0-0) % Platelet Estimate Slightly decreased L (NORMAL) Polychromasia Slight Hypochromasia (manual) Slight Anisocytosis (manual) Slight Target Cells Slight Puncture Site pCO2 (35-45) mm/Hg pO2 (80-100) mm/Hg HCO3 (21-28) mmol/L ABG pH (7.35-7.45) ABG Total CO2 (22-28) mmol/L ABG O2 Saturation (95-98) % ABG Base Excess (-2.0-3.0) mmol/L ABG Hemoglobin (11.7-17.4) g/dL ABG Carboxyhemoglobin (0.5-1.5) % POC ABG HHb (Measured) (0.0-5.0) % ABG Methemoglobin (0.0-3.0) % Tereso Test A-a O2 Difference mm/Hg Respiratory Index Hgb O2 Saturation (95.0-98.0) % Vent Mode Mechanical Rate FiO2 % Tidal Volume PEEP Sodium 147 (132-148) mmol/L Potassium 4.5 (3.6-5.2) mmol/L Chloride 125 H (98-107) mmol/L Carbon Dioxide 13 L (22-30) mmol/L Anion Gap 13 (10-20) BUN 39 H (7-17) mg/dL Creatinine 1.1 (0.7-1.2) mg/dL Est GFR ( Amer) 58 Est GFR (Non-Af Amer) 48 POC Glucose (mg/dL) 92 (65-110) mg/dL Random Glucose 89 (65-105) mg/dL Calcium 6.7 L (8.6-10.4) mg/dl Phosphorus 4.2 (2.5-4.5) mg/dL Magnesium 2.1 (1.6-2.3) mg/dL Total Bilirubin 0.6 (0.2-1.3) mg/dL AST 655 H D (14-36) U/L ALT 107 H D (9-52) U/L Alkaline Phosphatase 299 H (38-126) U/L Total Protein 5.1 L (6.3-8.3) g/dL Albumin 1.9 L (3.5-5.0) g/dL Globulin 3.2 (2.2-3.9) gm/dL Albumin/Globulin Ratio 0.6 L (1.0-2.1) Urine Color (YELLOW) Urine Clarity (Clear) Urine pH (5.0-8.0) Ur Specific [place] (1.003-1.030) Urine Protein (NEGATIVE) mg/dL Urine Glucose (UA) (Normal) mg/dL Urine Ketones (NEGATIVE) mg/dL Urine Blood (NEGATIVE) Urine Nitrate (NEGATIVE) Urine Bilirubin (NEGATIVE) Urine Urobilinogen (0.2-1.0) mg/dL Ur Leukocyte Esterase (Negative) Lilo/uL Urine WBC (Auto) (0-5) /hpf Urine RBC (Auto) (0-3) /hpf Ur Squamous Epith Cells (0-5) /hpf Amorphous Sediment (<OCC) /ul Granular Casts (Auto) (0-1) /lpf 10/07/18 10/07/18 10/06/18 Range/Units 04:10 00:23 20:29 WBC (4.8-10.8) K/uL RBC (3.80-5.20) Mil/uL Hgb (11.0-16.0) g/dL Hct (34.0-47.0) % MCV (81.0-99.0) fL MCH (27.0-31.0) pg MCHC (33.0-37.0) g/dL RDW (11.5-14.5) % Plt Count (130-400) K/uL MPV (7.2-11.7) fL Neut % (Auto) (50.0-75.0) % Lymph % (Auto) (20.0-40.0) % [place] % (Auto) (0.0-10.0) % Eos % (Auto) (0.0-4.0) % Baso % (Auto) (0.0-2.0) % Neut # (Auto) (1.8-7.0) K/uL Lymph # (Auto) (1.0-4.3) K/uL [place] # (Auto) (0.0-0.8) K/uL Eos # (Auto) (0.0-0.7) K/uL Baso # (Auto) (0.0-0.2) K/uL Neutrophils % (Manual) (50-75) % Band Neutrophils % (0-2) % Lymphocytes % (Manual) (20-40) % Monocytes % (Manual) (0-10) % Nucleated RBC % (0-0) % Platelet Estimate (NORMAL) Polychromasia Hypochromasia (manual) Anisocytosis (manual) Target Cells Puncture Site Rb pCO2 21 L (35-45) mm/Hg pO2 167 H (80-100) mm/Hg HCO3 15.0 L (21-28) mmol/L ABG pH 7.34 L (7.35-7.45) ABG Total CO2 11.9 L (22-28) mmol/L ABG O2 Saturation 99.7 H (95-98) % ABG Base Excess -12.7 L (-2.0-3.0) mmol/L ABG Hemoglobin 10.7 L (11.7-17.4) g/dL ABG Carboxyhemoglobin 1.6 H (0.5-1.5) % POC ABG HHb (Measured) 0.3 (0.0-5.0) % ABG Methemoglobin 1.2 (0.0-3.0) % Tereso Test Na A-a O2 Difference 163.0 mm/Hg Respiratory Index 1.0 Hgb O2 Saturation 97.0 (95.0-98.0) % Vent Mode Prvc Mechanical Rate 18 FiO2 50.0 % Tidal Volume 450 PEEP 5 Sodium (132-148) mmol/L Potassium (3.6-5.2) mmol/L Chloride (98-107) mmol/L Carbon Dioxide (22-30) mmol/L Anion Gap (10-20) BUN (7-17) mg/dL Creatinine (0.7-1.2) mg/dL Est GFR ( Amer) Est GFR (Non-Af Amer) POC Glucose (mg/dL) 84 (65-110) mg/dL Random Glucose (65-105) mg/dL Calcium (8.6-10.4) mg/dl Phosphorus (2.5-4.5) mg/dL Magnesium (1.6-2.3) mg/dL Total Bilirubin (0.2-1.3) mg/dL AST (14-36) U/L ALT (9-52) U/L Alkaline Phosphatase (38-126) U/L Total Protein (6.3-8.3) g/dL Albumin (3.5-5.0) g/dL Globulin (2.2-3.9) gm/dL Albumin/Globulin Ratio (1.0-2.1) Urine Color Yellow (YELLOW) Urine Clarity Hazy (Clear) Urine pH 5.0 (5.0-8.0) Ur Specific [place] 1.016 (1.003-1.030) Urine Protein Negative (NEGATIVE) mg/dL Urine Glucose (UA) Normal (Normal) mg/dL Urine Ketones Trace (NEGATIVE) mg/dL Urine Blood Trace H (NEGATIVE) Urine Nitrate Negative (NEGATIVE) Urine Bilirubin Negative (NEGATIVE) Urine Urobilinogen Normal (0.2-1.0) mg/dL Ur Leukocyte Esterase Neg (Negative) Lilo/uL Urine WBC (Auto) 14 H (0-5) /hpf Urine RBC (Auto) 2 (0-3) /hpf Ur Squamous Epith Cells 1 (0-5) /hpf Amorphous Sediment Few H (<OCC) /ul Granular Casts (Auto) 5 (0-1) /lpf Laboratory Results - last 24 hr 10/06/18 10/07/18 10/07/18 20:29 00:23 04:10 WBC RBC Hgb Hct MCV MCH MCHC RDW Plt Count MPV Neut % (Auto) Lymph % (Auto) [place] % (Auto) Eos % (Auto) Baso % (Auto) Neut # (Auto) Lymph # (Auto) [place] # (Auto) Eos # (Auto) Baso # (Auto) Neutrophils % (Manual) Band Neutrophils % Lymphocytes % (Manual) Monocytes % (Manual) Nucleated RBC % Platelet Estimate Polychromasia Hypochromasia (manual) Anisocytosis (manual) Target Cells Puncture Site Rb pCO2 21 L pO2 167 H HCO3 15.0 L ABG pH 7.34 L ABG Total CO2 11.9 L ABG O2 Saturation 99.7 H ABG Base Excess -12.7 L ABG Hemoglobin 10.7 L ABG Carboxyhemoglobin 1.6 H POC ABG HHb (Measured) 0.3 ABG Methemoglobin 1.2 Tereso Test Na A-a O2 Difference 163.0 Respiratory Index 1.0 Hgb O2 Saturation 97.0 Vent Mode Prvc Mechanical Rate 18 FiO2 50.0 Tidal Volume 450 PEEP 5 Sodium Potassium Chloride Carbon Dioxide Anion Gap BUN Creatinine Est GFR ( Amer) Est GFR (Non-Af Amer) POC Glucose (mg/dL) 84 Random Glucose Calcium Phosphorus Magnesium Total Bilirubin AST ALT Alkaline Phosphatase Total Protein Albumin Globulin Albumin/Globulin Ratio Urine Color Yellow Urine Clarity Hazy Urine pH 5.0 Ur Specific [place] 1.016 Urine Protein Negative Urine Glucose (UA) Normal Urine Ketones Trace Urine Blood Trace H Urine Nitrate Negative Urine Bilirubin Negative Urine Urobilinogen Normal Ur Leukocyte Esterase Neg Urine WBC (Auto) 14 H Urine RBC (Auto) 2 Ur Squamous Epith Cells 1 Amorphous Sediment Few H Granular Casts (Auto) 5 10/07/18 10/07/18 10/07/18 05:42 05:42 06:21 WBC 15.7 H RBC 2.79 L Hgb 9.0 L Hct 28.0 L MCV 100.2 H MCH 32.1 H MCHC 32.0 L RDW 15.2 H Plt Count 118 L D MPV 9.7 Neut % (Auto) 88.6 H Lymph % (Auto) 5.4 L [place] % (Auto) 5.4 Eos % (Auto) 0.2 Baso % (Auto) 0.4 Neut # (Auto) 13.9 H Lymph # (Auto) 0.8 L [place] # (Auto) 0.8 Eos # (Auto) 0.0 Baso # (Auto) 0.1 Neutrophils % (Manual) 88 H Band Neutrophils % 3 H Lymphocytes % (Manual) 6 L Monocytes % (Manual) 3 Nucleated RBC % 1 H Platelet Estimate Slightly decreased L Polychromasia Slight Hypochromasia (manual) Slight Anisocytosis (manual) Slight Target Cells Slight Puncture Site pCO2 pO2 HCO3 ABG pH ABG Total CO2 ABG O2 Saturation ABG Base Excess ABG Hemoglobin ABG Carboxyhemoglobin POC ABG HHb (Measured) ABG Methemoglobin Tereso Test A-a O2 Difference Respiratory Index Hgb O2 Saturation Vent Mode Mechanical Rate FiO2 Tidal Volume PEEP Sodium 147 Potassium 4.5 Chloride 125 H Carbon Dioxide 13 L Anion Gap 13 BUN 39 H Creatinine 1.1 Est GFR ( Amer) 58 Est GFR (Non-Af Amer) 48 POC Glucose (mg/dL) 92 Random Glucose 89 Calcium 6.7 L Phosphorus 4.2 Magnesium 2.1 Total Bilirubin 0.6 AST 655 H D ALT 107 H D Alkaline Phosphatase 299 H Total Protein 5.1 L Albumin 1.9 L Globulin 3.2 Albumin/Globulin Ratio 0.6 L Urine Color Urine Clarity Urine pH Ur Specific [place] Urine Protein Urine Glucose (UA) Urine Ketones Urine Blood Urine Nitrate Urine Bilirubin Urine Urobilinogen Ur Leukocyte Esterase Urine WBC (Auto) Urine RBC (Auto) Ur Squamous Epith Cells Amorphous Sediment Granular Casts (Auto) Review of Systems - Review of Systems Systems not reviewed;Unavailable: Intubated Assessment/Plan - Assessment and Plan (Free Text) Assessment: 78 yo F with PMH malignant gastric cancer, asthma, hypothyroidism, alzheimer's, sick sinus syndrome, pacemaker, and atrial fibrillation is admitted for sepsis, dehydration, and AMS on 10/04/18 after being found unresponsive at [facility]. Pt transferred to ICU after [employer] called for fever, hypotension, tachycardia. Pt intubated on the floor and admitted to ICU for further monitoring. Plan: Neuro - no focal deficits - precedex 0.5 - morphine 2mg q4h PRN Cardiovascular - h/o A.fib, sick sinus syndrome - hypotensive, tachycardic - CXR 10/07: minor central pulmonary vascular congestion w/ bibasilar atelectasis/infiltrates. small b/l effusions L>R - CXR 10/06: improved venous congestion - CXR 10/05: R central venous catheter tip extending into R atrium, ET tube extending into midthoracic trachea. L sided pacemaker. mild venous congestion. small L pleural effusion. cardiomegaly, enlarged ectatic aorta. - eliquis 25mg PO BID - levophed @24.8 mcg/min - NS 1L bolus - albumin 25% 12.5g IV q8h x3 doses - maintain normotension - Cardiology consulted, Dr. Zapien - f/u recs Pulm - intubated - CXR 10/07: minor central pulmonary vascular congestion w/ bibasilar atelectasis/infiltrates. small b/l effusions L>R - CXR 10/06: improved venous congestion - CXR 10/05: R central venous catheter tip extending into R atrium, ET tube extending into midthoracic trachea. L sided pacemaker. mild venous congestion. small L pleural effusion. cardiomegaly, enlarged ectatic aorta. - cpap trial - maintain SpO2 >92% GI - transaminitis improving - continue to monitor - Vital 1.2 feeds - protonix 40mg IV daily Renal - Non anion gap metabolic acidosis - RTA type II - HCO3 13 - urine pH 5 - BUN/Cr 39/1.1 - Bicarb 650mg PO q6h - NS @100cc/hr - I/Os Heme - H/H 07/24 - h/o gastric cancer - Heme/onc consulted, Dr. Gonzáles - f/u recs ID - Sepsis, secondary to bactermia - pt afebrile, Tmax 100.7 this am - leukocytosis - BCx pos for Gram+ cocci in clusters - UCx neg - merem 500mg IV q12 - vanco 750mg IV q12 - ID consulted, Dr. Galvan - recs appreciated PPX GI: protonix DVT: lovenox 30 Vital 1.2 feeds Pt seen and case reviewed with Dr. Alfonso <Kevin Alfonso S - Last Filed: 10/07/18 16:00> CCU Subjective - Physician Review Critical Care Time Spent (in minutes): 40 CCU Objective - Vital Signs / Intake & Output Vital Signs (Last 4 hours): Vital Signs Pulse Resp BP Pulse Ox 10/07/18 15:40 114 H 16 95/64 L 100 10/07/18 14:10 112 H 15 106/64 100 10/07/18 13:25 110 H 21 108/69 100 10/07/18 12:55 112 H 15 99/64 L 100 10/07/18 12:40 114 H 17 110/71 100 10/07/18 12:10 113 H 16 103/56 L 100 Intake and Output (Last 8hrs): Intake & Output 10/07/18 10/07/18 10/07/18 06:59 14:59 22:59 Intake Total 2386.4500 4411.8 Output Total 620 475 Balance 1766.4500 3936.8 Weight 176 lb 4.8 oz Intake: IV 716.7500 862 Intake, IV Amount 1549.7 3289.8 Right Distal Port 676.9 750.4 Right Medial Port 72.8 72.8 Right Proximal Port 800 2466.6 Tube Feeding 120 260 Output: Urine 620 475 Urethral (Montelongo) 620 475 Other: # Bowel Movements 0 - Medications Active Medications: Active Medications Generic Name Dose Route Start Last Admin Trade Name Freq PRN Reason Stop Dose Admin Acetaminophen 650 mg 10/05/18 15:36 10/07/18 05:40 Tylenol 650 Mg Supp MA 650 mg Q8 PRN Administration Fever >100.4 F Albumin Human 12.5 gm 10/07/18 09:15 10/07/18 10:16 Albumin Human 25% (12.5 Gm/50 Ml) IV 10/08/18 01:16 12.5 gm Q8H CHRISTIANO Administration Apixaban 2.5 mg 10/07/18 10:00 10/07/18 09:13 Eliquis PO 2.5 mg BID CHRISTIANO Administration Enoxaparin Sodium 30 mg 10/05/18 13:00 10/07/18 09:13 Lovenox SC 30 mg DAILY CHRISTIANO Administration Meropenem 500 mg/ Sodium 100 mls @ 100 mls/hr 10/05/18 11:30 10/07/18 10:30 Chloride IVPB 100 mls/hr Q12H CHRISTIANO Administration Protocol Sodium Chloride 1,000 mls @ 100 mls/hr 10/05/18 16:30 10/07/18 09:00 Sodium Chloride 0.9% IV 100 mls/hr .Q10H CHRISTIANO Administration Norepinephrine Bitartrate 4 mg 254 mls @ 15.24 mls/hr 10/05/18 20:02 10/07/18 15:40 / Sodium Chloride IV 25 mcg/min .[id number] PRN 95.25 mls/hr TITRATE PER MD ORDER Administration Protocol 4 MCG/MIN Dexmedetomidine HCl 200 mcg/ 50 mls @ 3.65 mls/hr 10/06/18 09:53 10/07/18 13:57 Sodium Chloride IV 0.7 mcg/kg/hr TITR PRN 12.78 mls/hr Agitation Administration Protocol 0.2 MCG/KG/HR Vancomycin HCl 750 mg/ Sodium 250 mls @ 166.6 mls/hr 10/07/18 09:30 10/07/18 11:13 Chloride IVPB 166.6 mls/hr Q12H CHRISTIANO Administration Protocol Morphine Sulfate 2 mg 10/04/18 19:51 10/07/18 14:00 Morphine IVP 2 mg Q4 PRN Administration Pain, severe (8-10) Pantoprazole Sodium 40 mg 10/04/18 20:00 10/07/18 09:13 Protonix Inj IVP 40 mg DAILY CHRISTIANO Administration Sodium Bicarbonate 650 mg 10/07/18 12:00 10/07/18 11:12 Sodium Bicarbonate Tab PO 650 mg Q6 CHRISTIANO Administration Sucralfate 1 gm 10/07/18 10:00 10/07/18 09:31 Carafate Oral Susp PO 1 gm DAILY CHRISTIANO Administration - Patient Studies Lab Studies: Microbiology Studies 10/04/18 15:20 S.aureus & Coag-Neg Staph PNA FISH - Final Blood Blood Culture - Preliminary Coagulase Neg Staphylococcus Gram Stain - Final 10/06/18 00:30 MRSA Culture (Admit) - Final Nose MRSA NOT DETECTED 10/04/18 16:00 Blood Culture - Preliminary Blood NO GROWTH AFTER 48 HOURS 10/04/18 16:22 Urine Culture - Final Urine,Catheterized No Growth (<1,000 CFU/ML) Lab Studies 10/07/18 10/07/18 10/07/18 Range/Units 13:34 06:21 05:42 WBC (4.8-10.8) K/uL RBC (3.80-5.20) Mil/uL Hgb (11.0-16.0) g/dL Hct (34.0-47.0) % MCV (81.0-99.0) fL MCH (27.0-31.0) pg MCHC (33.0-37.0) g/dL RDW (11.5-14.5) % Plt Count (130-400) K/uL MPV (7.2-11.7) fL Neut % (Auto) (50.0-75.0) % Lymph % (Auto) (20.0-40.0) % [place] % (Auto) (0.0-10.0) % Eos % (Auto) (0.0-4.0) % Baso % (Auto) (0.0-2.0) % Neut # (Auto) (1.8-7.0) K/uL Lymph # (Auto) (1.0-4.3) K/uL [place] # (Auto) (0.0-0.8) K/uL Eos # (Auto) (0.0-0.7) K/uL Baso # (Auto) (0.0-0.2) K/uL Neutrophils % (Manual) (50-75) % Band Neutrophils % (0-2) % Lymphocytes % (Manual) (20-40) % Monocytes % (Manual) (0-10) % Nucleated RBC % (0-0) % Platelet Estimate (NORMAL) Polychromasia Hypochromasia (manual) Anisocytosis (manual) Target Cells Puncture Site pCO2 (35-45) mm/Hg pO2 (80-100) mm/Hg HCO3 (21-28) mmol/L ABG pH (7.35-7.45) ABG Total CO2 (22-28) mmol/L ABG O2 Saturation (95-98) % ABG Base Excess (-2.0-3.0) mmol/L ABG Hemoglobin (11.7-17.4) g/dL ABG Carboxyhemoglobin (0.5-1.5) % POC ABG HHb (Measured) (0.0-5.0) % ABG Methemoglobin (0.0-3.0) % Tereos Test A-a O2 Difference mm/Hg Respiratory Index Hgb O2 Saturation (95.0-98.0) % Vent Mode Mechanical Rate FiO2 % Tidal Volume PEEP Sodium 147 (132-148) mmol/L Potassium 4.5 (3.6-5.2) mmol/L Chloride 125 H (98-107) mmol/L Carbon Dioxide 13 L (22-30) mmol/L Anion Gap 13 (10-20) BUN 39 H (7-17) mg/dL Creatinine 1.1 (0.7-1.2) mg/dL Est GFR ( Amer) 58 Est GFR (Non-Af Amer) 48 POC Glucose (mg/dL) 102 92 (65-110) mg/dL Random Glucose 89 (65-105) mg/dL Calcium 6.7 L (8.6-10.4) mg/dl Phosphorus 4.2 (2.5-4.5) mg/dL Magnesium 2.1 (1.6-2.3) mg/dL Total Bilirubin 0.6 (0.2-1.3) mg/dL AST 655 H D (14-36) U/L ALT 107 H D (9-52) U/L Alkaline Phosphatase 299 H (38-126) U/L Total Protein 5.1 L (6.3-8.3) g/dL Albumin 1.9 L (3.5-5.0) g/dL Globulin 3.2 (2.2-3.9) gm/dL Albumin/Globulin Ratio 0.6 L (1.0-2.1) Urine Color (YELLOW) Urine Clarity (Clear) Urine pH (5.0-8.0) Ur Specific [place] (1.003-1.030) Urine Protein (NEGATIVE) mg/dL Urine Glucose (UA) (Normal) mg/dL Urine Ketones (NEGATIVE) mg/dL Urine Blood (NEGATIVE) Urine Nitrate (NEGATIVE) Urine Bilirubin (NEGATIVE) Urine Urobilinogen (0.2-1.0) mg/dL Ur Leukocyte Esterase (Negative) Lilo/uL Urine WBC (Auto) (0-5) /hpf Urine RBC (Auto) (0-3) /hpf Ur Squamous Epith Cells (0-5) /hpf Amorphous Sediment (<OCC) /ul Granular Casts (Auto) (0-1) /lpf 10/07/18 10/07/18 10/07/18 Range/Units 05:42 04:10 00:23 WBC 15.7 H (4.8-10.8) K/uL RBC 2.79 L (3.80-5.20) Mil/uL Hgb 9.0 L (11.0-16.0) g/dL Hct 28.0 L (34.0-47.0) % MCV 100.2 H (81.0-99.0) fL MCH 32.1 H (27.0-31.0) pg MCHC 32.0 L (33.0-37.0) g/dL RDW 15.2 H (11.5-14.5) % Plt Count 118 L D (130-400) K/uL MPV 9.7 (7.2-11.7) fL Neut % (Auto) 88.6 H (50.0-75.0) % Lymph % (Auto) 5.4 L (20.0-40.0) % [place] % (Auto) 5.4 (0.0-10.0) % Eos % (Auto) 0.2 (0.0-4.0) % Baso % (Auto) 0.4 (0.0-2.0) % Neut # (Auto) 13.9 H (1.8-7.0) K/uL Lymph # (Auto) 0.8 L (1.0-4.3) K/uL [place] # (Auto) 0.8 (0.0-0.8) K/uL Eos # (Auto) 0.0 (0.0-0.7) K/uL Baso # (Auto) 0.1 (0.0-0.2) K/uL Neutrophils % (Manual) 88 H (50-75) % Band Neutrophils % 3 H (0-2) % Lymphocytes % (Manual) 6 L (20-40) % Monocytes % (Manual) 3 (0-10) % Nucleated RBC % 1 H (0-0) % Platelet Estimate Slightly decreased L (NORMAL) Polychromasia Slight Hypochromasia (manual) Slight Anisocytosis (manual) Slight Target Cells Slight Puncture Site Rb pCO2 21 L (35-45) mm/Hg pO2 167 H (80-100) mm/Hg HCO3 15.0 L (21-28) mmol/L ABG pH 7.34 L (7.35-7.45) ABG Total CO2 11.9 L (22-28) mmol/L ABG O2 Saturation 99.7 H (95-98) % ABG Base Excess -12.7 L (-2.0-3.0) mmol/L ABG Hemoglobin 10.7 L (11.7-17.4) g/dL ABG Carboxyhemoglobin 1.6 H (0.5-1.5) % POC ABG HHb (Measured) 0.3 (0.0-5.0) % ABG Methemoglobin 1.2 (0.0-3.0) % Tereso Test Na A-a O2 Difference 163.0 mm/Hg Respiratory Index 1.0 Hgb O2 Saturation 97.0 (95.0-98.0) % Vent Mode Prvc Mechanical Rate 18 FiO2 50.0 % Tidal Volume 450 PEEP 5 Sodium (132-148) mmol/L Potassium (3.6-5.2) mmol/L Chloride (98-107) mmol/L Carbon Dioxide (22-30) mmol/L Anion Gap (10-20) BUN (7-17) mg/dL Creatinine (0.7-1.2) mg/dL Est GFR ( Amer) Est GFR (Non-Af Amer) POC Glucose (mg/dL) (65-110) mg/dL Random Glucose (65-105) mg/dL Calcium (8.6-10.4) mg/dl Phosphorus (2.5-4.5) mg/dL Magnesium (1.6-2.3) mg/dL Total Bilirubin (0.2-1.3) mg/dL AST (14-36) U/L ALT (9-52) U/L Alkaline Phosphatase (38-126) U/L Total Protein (6.3-8.3) g/dL Albumin (3.5-5.0) g/dL Globulin (2.2-3.9) gm/dL Albumin/Globulin Ratio (1.0-2.1) Urine Color Yellow (YELLOW) Urine Clarity Hazy (Clear) Urine pH 5.0 (5.0-8.0) Ur Specific [place] 1.016 (1.003-1.030) Urine Protein Negative (NEGATIVE) mg/dL Urine Glucose (UA) Normal (Normal) mg/dL Urine Ketones Trace (NEGATIVE) mg/dL Urine Blood Trace H (NEGATIVE) Urine Nitrate Negative (NEGATIVE) Urine Bilirubin Negative (NEGATIVE) Urine Urobilinogen Normal (0.2-1.0) mg/dL Ur Leukocyte Esterase Neg (Negative) Lilo/uL Urine WBC (Auto) 14 H (0-5) /hpf Urine RBC (Auto) 2 (0-3) /hpf Ur Squamous Epith Cells 1 (0-5) /hpf Amorphous Sediment Few H (<OCC) /ul Granular Casts (Auto) 5 (0-1) /lpf 10/06/18 Range/Units 20:29 WBC (4.8-10.8) K/uL RBC (3.80-5.20) Mil/uL Hgb (11.0-16.0) g/dL Hct (34.0-47.0) % MCV (81.0-99.0) fL MCH (27.0-31.0) pg MCHC (33.0-37.0) g/dL RDW (11.5-14.5) % Plt Count (130-400) K/uL MPV (7.2-11.7) fL Neut % (Auto) (50.0-75.0) % Lymph % (Auto) (20.0-40.0) % [place] % (Auto) (0.0-10.0) % Eos % (Auto) (0.0-4.0) % Baso % (Auto) (0.0-2.0) % Neut # (Auto) (1.8-7.0) K/uL Lymph # (Auto) (1.0-4.3) K/uL [place] # (Auto) (0.0-0.8) K/uL Eos # (Auto) (0.0-0.7) K/uL Baso # (Auto) (0.0-0.2) K/uL Neutrophils % (Manual) (50-75) % Band Neutrophils % (0-2) % Lymphocytes % (Manual) (20-40) % Monocytes % (Manual) (0-10) % Nucleated RBC % (0-0) % Platelet Estimate (NORMAL) Polychromasia Hypochromasia (manual) Anisocytosis (manual) Target Cells Puncture Site pCO2 (35-45) mm/Hg pO2 (80-100) mm/Hg HCO3 (21-28) mmol/L ABG pH (7.35-7.45) ABG Total CO2 (22-28) mmol/L ABG O2 Saturation (95-98) % ABG Base Excess (-2.0-3.0) mmol/L ABG Hemoglobin (11.7-17.4) g/dL ABG Carboxyhemoglobin (0.5-1.5) % POC ABG HHb (Measured) (0.0-5.0) % ABG Methemoglobin (0.0-3.0) % Tereso Test A-a O2 Difference mm/Hg Respiratory Index Hgb O2 Saturation (95.0-98.0) % Vent Mode Mechanical Rate FiO2 % Tidal Volume PEEP Sodium (132-148) mmol/L Potassium (3.6-5.2) mmol/L Chloride (98-107) mmol/L Carbon Dioxide (22-30) mmol/L Anion Gap (10-20) BUN (7-17) mg/dL Creatinine (0.7-1.2) mg/dL Est GFR ( Amer) Est GFR (Non-Af Amer) POC Glucose (mg/dL) 84 (65-110) mg/dL Random Glucose (65-105) mg/dL Calcium (8.6-10.4) mg/dl Phosphorus (2.5-4.5) mg/dL Magnesium (1.6-2.3) mg/dL Total Bilirubin (0.2-1.3) mg/dL AST (14-36) U/L ALT (9-52) U/L Alkaline Phosphatase (38-126) U/L Total Protein (6.3-8.3) g/dL Albumin (3.5-5.0) g/dL Globulin (2.2-3.9) gm/dL Albumin/Globulin Ratio (1.0-2.1) Urine Color (YELLOW) Urine Clarity (Clear) Urine pH (5.0-8.0) Ur Specific [place] (1.003-1.030) Urine Protein (NEGATIVE) mg/dL Urine Glucose (UA) (Normal) mg/dL Urine Ketones (NEGATIVE) mg/dL Urine Blood (NEGATIVE) Urine Nitrate (NEGATIVE) Urine Bilirubin (NEGATIVE) Urine Urobilinogen (0.2-1.0) mg/dL Ur Leukocyte Esterase (Negative) Lilo/uL Urine WBC (Auto) (0-5) /hpf Urine RBC (Auto) (0-3) /hpf Ur Squamous Epith Cells (0-5) /hpf Amorphous Sediment (<OCC) /ul Granular Casts (Auto) (0-1) /lpf Laboratory Results - last 24 hr 10/06/18 10/07/18 10/07/18 20:29 00:23 04:10 WBC RBC Hgb Hct MCV MCH MCHC RDW Plt Count MPV Neut % (Auto) Lymph % (Auto) [place] % (Auto) Eos % (Auto) Baso % (Auto) Neut # (Auto) Lymph # (Auto) [place] # (Auto) Eos # (Auto) Baso # (Auto) Neutrophils % (Manual) Band Neutrophils % Lymphocytes % (Manual) Monocytes % (Manual) Nucleated RBC % Platelet Estimate Polychromasia Hypochromasia (manual) Anisocytosis (manual) Target Cells Puncture Site Rb pCO2 21 L pO2 167 H HCO3 15.0 L ABG pH 7.34 L ABG Total CO2 11.9 L ABG O2 Saturation 99.7 H ABG Base Excess -12.7 L ABG Hemoglobin 10.7 L ABG Carboxyhemoglobin 1.6 H POC ABG HHb (Measured) 0.3 ABG Methemoglobin 1.2 Tereso Test Na A-a O2 Difference 163.0 Respiratory Index 1.0 Hgb O2 Saturation 97.0 Vent Mode Prvc Mechanical Rate 18 FiO2 50.0 Tidal Volume 450 PEEP 5 Sodium Potassium Chloride Carbon Dioxide Anion Gap BUN Creatinine Est GFR ( Amer) Est GFR (Non-Af Amer) POC Glucose (mg/dL) 84 Random Glucose Calcium Phosphorus Magnesium Total Bilirubin AST ALT Alkaline Phosphatase Total Protein Albumin Globulin Albumin/Globulin Ratio Urine Color Yellow Urine Clarity Hazy Urine pH 5.0 Ur Specific [place] 1.016 Urine Protein Negative Urine Glucose (UA) Normal Urine Ketones Trace Urine Blood Trace H Urine Nitrate Negative Urine Bilirubin Negative Urine Urobilinogen Normal Ur Leukocyte Esterase Neg Urine WBC (Auto) 14 H Urine RBC (Auto) 2 Ur Squamous Epith Cells 1 Amorphous Sediment Few H Granular Casts (Auto) 5 10/07/18 10/07/18 10/07/18 05:42 05:42 06:21 WBC 15.7 H RBC 2.79 L Hgb 9.0 L Hct 28.0 L MCV 100.2 H MCH 32.1 H MCHC 32.0 L RDW 15.2 H Plt Count 118 L D MPV 9.7 Neut % (Auto) 88.6 H Lymph % (Auto) 5.4 L [place] % (Auto) 5.4 Eos % (Auto) 0.2 Baso % (Auto) 0.4 Neut # (Auto) 13.9 H Lymph # (Auto) 0.8 L [place] # (Auto) 0.8 Eos # (Auto) 0.0 Baso # (Auto) 0.1 Neutrophils % (Manual) 88 H Band Neutrophils % 3 H Lymphocytes % (Manual) 6 L Monocytes % (Manual) 3 Nucleated RBC % 1 H Platelet Estimate Slightly decreased L Polychromasia Slight Hypochromasia (manual) Slight Anisocytosis (manual) Slight Target Cells Slight Puncture Site pCO2 pO2 HCO3 ABG pH ABG Total CO2 ABG O2 Saturation ABG Base Excess ABG Hemoglobin ABG Carboxyhemoglobin POC ABG HHb (Measured) ABG Methemoglobin Tereso Test A-a O2 Difference Respiratory Index Hgb O2 Saturation Vent Mode Mechanical Rate FiO2 Tidal Volume PEEP Sodium 147 Potassium 4.5 Chloride 125 H Carbon Dioxide 13 L Anion Gap 13 BUN 39 H Creatinine 1.1 Est GFR ( Amer) 58 Est GFR (Non-Af Amer) 48 POC Glucose (mg/dL) 92 Random Glucose 89 Calcium 6.7 L Phosphorus 4.2 Magnesium 2.1 Total Bilirubin 0.6 AST 655 H D ALT 107 H D Alkaline Phosphatase 299 H Total Protein 5.1 L Albumin 1.9 L Globulin 3.2 Albumin/Globulin Ratio 0.6 L Urine Color Urine Clarity Urine pH Ur Specific [place] Urine Protein Urine Glucose (UA) Urine Ketones Urine Blood Urine Nitrate Urine Bilirubin Urine Urobilinogen Ur Leukocyte Esterase Urine WBC (Auto) Urine RBC (Auto) Ur Squamous Epith Cells Amorphous Sediment Granular Casts (Auto) 10/07/18 13:34 WBC RBC Hgb Hct MCV MCH MCHC RDW Plt Count MPV Neut % (Auto) Lymph % (Auto) [place] % (Auto) Eos % (Auto) Baso % (Auto) Neut # (Auto) Lymph # (Auto) [place] # (Auto) Eos # (Auto) Baso # (Auto) Neutrophils % (Manual) Band Neutrophils % Lymphocytes % (Manual) Monocytes % (Manual) Nucleated RBC % Platelet Estimate Polychromasia Hypochromasia (manual) Anisocytosis (manual) Target Cells Puncture Site pCO2 pO2 HCO3 ABG pH ABG Total CO2 ABG O2 Saturation ABG Base Excess ABG Hemoglobin ABG Carboxyhemoglobin POC ABG HHb (Measured) ABG Methemoglobin Te[place]o Test A-a O2 Difference Respiratory Index Hgb O2 Saturation Vent Mode Mechanical Rate FiO2 Tidal Volume PEEP Sodium Potassium Chloride Carbon Dioxide Anion Gap BUN Creatinine Est GFR ( Amer) Est GFR (Non-Af Amer) POC Glucose (mg/dL) 102 Random Glucose Calcium Phosphorus Magnesium Total Bilirubin AST ALT Alkaline Phosphatase Total Protein Albumin Globulin Albumin/Globulin Ratio Urine Color Urine Clarity Urine pH Ur Specific [place] Urine Protein Urine Glucose (UA) Urine Ketones Urine Blood Urine Nitrate Urine Bilirubin Urine Urobilinogen Ur Leukocyte Esterase Urine WBC (Auto) Urine RBC (Auto) Ur Squamous Epith Cells Amorphous Sediment Granular Casts (Auto) Radiology Impressions: Radiology Impressions Chest X-Ray 10/07/18 06:00 IMPRESSION: Support lines and tubes as above. Minor central pulmonary vascular congestive changes with bibasilar atelectasis and/or infiltrates and small bilateral effusions left larger than right Attending/Attestation - Attestation I have personally seen and examined this patient.: Yes I have fully participated in the care of the patient.: Yes I have reviewed all pertinent clinical information: Yes Notes (Text): 10/07/18 15:59 patient seen and examined in the intensive care unit. Patient remained intubated. On ventilatory support Sedated on Precedex Started on bicarbonate for non-anion gap metabolic acidosis Continue IV fluids Taper off pressors as tolerated Continue IV antibiotics Follow-up cultures and sensitivity Increase NG tube feeding
[2018-10-07] MEDS: Sodium Chloride 0.9% 1,000 ML IV SCH ×3 (09:00→21:00)
[2018-10-07] MEDS: Enoxaparin 30 mg Syringe SC SCH (09:13)
--- NOTE | 2018-10-07 09:27 | RAD ---
Date of service: 10/07/2018 HISTORY: Intubation COMPARISON: No prior. FINDINGS: In situ ETT, tip of which lies approximately the 3.1 cm above michell. In situ NGT, tip of which overlies left upper/mid abdomen.. In situ right IJ central line with tip in the SVC/RA junction. LUNGS: Minor central pulmonary vascular congestive changes with bibasilar atelectasis and/or infiltrates and small bilateral effusions left larger than right PLEURA: No significant pleural effusion identified, no pneumothorax apparent. CARDIOVASCULAR: Mild aortic atherosclerotic calcification present. Heart remains mildly enlarged. No change bipolar pacemaker/defibrillator.. No pulmonary vascular congestion. OSSEOUS STRUCTURES: No significant abnormalities. VISUALIZED UPPER ABDOMEN: Normal. OTHER FINDINGS: None. IMPRESSION: Support lines and tubes as above. Minor central pulmonary vascular congestive changes with bibasilar atelectasis and/or infiltrates and small bilateral effusions left larger than right
[2018-10-07] MEDS: Sucralfate 1 gm/10 ml Oral Susp UD PO SCH (09:31)
[2018-10-07] MEDS: Albumin Human 25% (12.5 gm/50 ml) IV SCH ×2 (10:16→17:14)
[2018-10-07] MEDS: Meropenem 500 MG in Sodium Chloride 0.9% 100 ML IVPB SCH (10:30)
--- NOTE | 2018-10-07 11:58 | CP.PCM.PN ---
Subjective - Date & Time of Evaluation Date of Evaluation: 10/06/18 Time of Evaluation: 18:00 - Subjective Subjective: Vented Objective - Vital Signs/Intake and Output Vital Signs (last 24 hours): Temp Pulse Resp BP Pulse Ox 100.2 F H 115 H 17 98/62 L 100 10/07/18 06:40 10/07/18 11:49 10/07/18 11:49 10/07/18 11:49 10/07/18 11:49 Intake and Output: 10/07/18 10/07/18 06:59 18:59 Intake Total 3221.1500 558 Output Total 850 Balance 2371.1500 558 - Medications Medications: Current Medications Acetaminophen (Tylenol 650 Mg Supp) 650 mg [place] Q8 PRN PRN Reason: Fever >100.4 F Last Admin: 10/07/18 05:40 Dose: 650 mg Albumin Human (Albumin Human 25% (12.5 Gm/50 Ml)) 12.5 gm IV Q8H [facility] Stop: 10/08/18 01:16 Last Admin: 10/07/18 10:16 Dose: 12.5 gm Apixaban (Eliquis) 2.5 mg PO BID [facility] Last Admin: 10/07/18 09:13 Dose: 2.5 mg Enoxaparin Sodium (Lovenox) 30 mg SC DAILY [facility] Last Admin: 10/07/18 09:13 Dose: 30 mg Meropenem 500 mg/ Sodium (Chloride) 100 mls @ 100 mls/hr IVPB Q12H [facility]; Protocol Last Admin: 10/07/18 10:30 Dose: 100 mls/hr Sodium Chloride (Sodium Chloride 0.9%) 1,000 mls @ 100 mls/hr IV .Q10H [facility] Last Admin: 10/07/18 09:00 Dose: 100 mls/hr Norepinephrine Bitartrate 4 mg (/ Sodium Chloride) 254 mls @ 15.24 mls/hr IV .[id number] PRN; Protocol PRN Reason: TITRATE PER MD ORDER Last Admin: 10/07/18 11:49 Dose: 25 mcg/min, 95.25 mls/hr Dexmedetomidine HCl 200 mcg/ (Sodium Chloride) 50 mls @ 3.65 mls/hr IV TITR PRN; Protocol PRN Reason: Agitation Last Admin: 10/07/18 07:54 Dose: 0.5 mcg/kg/hr, 9.13 mls/hr Vancomycin HCl 750 mg/ Sodium (Chloride) 250 mls @ 166.6 mls/hr IVPB Q12H [facility]; Protocol Last Admin: 10/07/18 11:13 Dose: 166.6 mls/hr Morphine Sulfate (Morphine) 2 mg IVP Q4 PRN PRN Reason: Pain, severe (8-10) Last Admin: 10/07/18 04:03 Dose: 2 mg Pantoprazole Sodium (Protonix Inj) 40 mg IVP DAILY [facility] Last Admin: 10/07/18 09:13 Dose: 40 mg Sodium Bicarbonate (Sodium Bicarbonate Tab) 650 mg PO Q6 [facility] Last Admin: 10/07/18 11:12 Dose: 650 mg Sucralfate (Carafate Oral Susp) 1 gm PO DAILY [facility] Last Admin: 10/07/18 09:31 Dose: 1 gm - Labs Labs: 10/07/18 05:42 10/07/18 05:42 PT 23.0 SECONDS (9.7-12.2) H 10/04/18 15:35 INR 2.1 10/04/18 15:35 APTT 32 SECONDS (21-34) 10/04/18 15:35 - Head Exam Head Exam: ATRAUMATIC - Eye Exam Eye Exam: Normal appearance - ENT Exam ENT Exam: Mucous Membranes Dry - Respiratory Exam Respiratory Exam: NORMAL BREATHING PATTERN - Cardiovascular Exam Cardiovascular Exam: +S1, +S2 - GI/Abdominal Exam GI & Abdominal Exam: Normal Bowel Sounds Assessment and Plan (1) Anemia Assessment & Plan: chronic disease transfusion support PRN Status: Acute (2) Thrombocytopenia Assessment & Plan: mild may be related to recent chemotherapy rule out evolving DIC Status: Acute (3) Leukocytosis Assessment & Plan: on antibiotics Status: Acute (4) Gastric cancer Assessment & Plan: stage IV on outpatient chemotherapy palliative care evaluation Status: Acute
--- NOTE | 2018-10-07 12:00 | CP.PCM.PN ---
Subjective - Date & Time of Evaluation Date of Evaluation: 10/07/18 Time of Evaluation: 11:15 - Subjective Subjective: Vented Objective - Vital Signs/Intake and Output Vital Signs (last 24 hours): Temp Pulse Resp BP Pulse Ox 100.2 F H 115 H 17 98/62 L 100 10/07/18 06:40 10/07/18 11:49 10/07/18 11:49 10/07/18 11:49 10/07/18 11:49 Intake and Output: 10/07/18 10/07/18 06:59 18:59 Intake Total 3221.1500 558 Output Total 850 Balance 2371.1500 558 - Medications Medications: Current Medications Acetaminophen (Tylenol 650 Mg Supp) 650 mg RI Q8 PRN PRN Reason: Fever >100.4 F Last Admin: 10/07/18 05:40 Dose: 650 mg Albumin Human (Albumin Human 25% (12.5 Gm/50 Ml)) 12.5 gm IV Q8H [facility] Stop: 10/08/18 01:16 Last Admin: 10/07/18 10:16 Dose: 12.5 gm Apixaban (Eliquis) 2.5 mg PO BID [facility] Last Admin: 10/07/18 09:13 Dose: 2.5 mg Enoxaparin Sodium (Lovenox) 30 mg SC DAILY [facility] Last Admin: 10/07/18 09:13 Dose: 30 mg Meropenem 500 mg/ Sodium (Chloride) 100 mls @ 100 mls/hr IVPB Q12H [facility]; Protocol Last Admin: 10/07/18 10:30 Dose: 100 mls/hr Sodium Chloride (Sodium Chloride 0.9%) 1,000 mls @ 100 mls/hr IV .Q10H [facility] Last Admin: 10/07/18 09:00 Dose: 100 mls/hr Norepinephrine Bitartrate 4 mg (/ Sodium Chloride) 254 mls @ 15.24 mls/hr IV .[id number] PRN; Protocol PRN Reason: TITRATE PER MD ORDER Last Admin: 10/07/18 11:49 Dose: 25 mcg/min, 95.25 mls/hr Dexmedetomidine HCl 200 mcg/ (Sodium Chloride) 50 mls @ 3.65 mls/hr IV TITR PRN; Protocol PRN Reason: Agitation Last Admin: 10/07/18 07:54 Dose: 0.5 mcg/kg/hr, 9.13 mls/hr Vancomycin HCl 750 mg/ Sodium (Chloride) 250 mls @ 166.6 mls/hr IVPB Q12H [facility]; Protocol Last Admin: 10/07/18 11:13 Dose: 166.6 mls/hr Morphine Sulfate (Morphine) 2 mg IVP Q4 PRN PRN Reason: Pain, severe (8-10) Last Admin: 10/07/18 04:03 Dose: 2 mg Pantoprazole Sodium (Protonix Inj) 40 mg IVP DAILY [facility] Last Admin: 10/07/18 09:13 Dose: 40 mg Sodium Bicarbonate (Sodium Bicarbonate Tab) 650 mg PO Q6 [facility] Last Admin: 10/07/18 11:12 Dose: 650 mg Sucralfate (Carafate Oral Susp) 1 gm PO DAILY [facility] Last Admin: 10/07/18 09:31 Dose: 1 gm - Labs Labs: 10/07/18 05:42 10/07/18 05:42 PT 23.0 SECONDS (9.7-12.2) H 10/04/18 15:35 INR 2.1 10/04/18 15:35 APTT 32 SECONDS (21-34) 10/04/18 15:35 - Head Exam Head Exam: ATRAUMATIC - Eye Exam Eye Exam: Normal appearance - ENT Exam ENT Exam: Mucous Membranes Dry - Respiratory Exam Respiratory Exam: NORMAL BREATHING PATTERN - Cardiovascular Exam Cardiovascular Exam: +S1, +S2 - GI/Abdominal Exam GI & Abdominal Exam: Normal Bowel Sounds Assessment and Plan (1) Anemia Assessment & Plan: chronic disease Status: Acute (2) Thrombocytopenia Assessment & Plan: recent chemotherapy sepsis related f/u fibrinogen to rule out DIC Status: Acute (3) Leukocytosis Assessment & Plan: on antibiotics Status: Acute (4) Gastric cancer Assessment & Plan: stage IV outpatient chemotherapy palliative care evaluation Status: Acute
--- NOTE | 2018-10-07 17:37 | CP.PCM.PN ---
Subjective - Date & Time of Evaluation Date of Evaluation: 10/07/18 Time of Evaluation: 09:00 - Subjective Subjective: intubated unresponsive afeb cultures reviewed Objective - Vital Signs/Intake and Output Vital Signs (last 24 hours): Temp Pulse Resp BP Pulse Ox 100.2 F H 113 H 15 102/70 100 10/07/18 06:40 10/07/18 16:25 10/07/18 16:25 10/07/18 16:25 10/07/18 16:25 Intake and Output: 10/07/18 10/07/18 06:59 18:59 Intake Total 3221.1500 4764.2 Output Total 850 580 Balance 2371.1500 4184.2 - Medications Medications: Current Medications Acetaminophen (Tylenol 650 Mg Supp) 650 mg [place] Q8 PRN PRN Reason: Fever >100.4 F Last Admin: 10/07/18 05:40 Dose: 650 mg Albumin Human (Albumin Human 25% (12.5 Gm/50 Ml)) 12.5 gm IV Q8H [facility] Stop: 10/08/18 01:16 Last Admin: 10/07/18 17:14 Dose: 12.5 gm Apixaban (Eliquis) 2.5 mg PO BID [facility] Last Admin: 10/07/18 17:15 Dose: 2.5 mg Enoxaparin Sodium (Lovenox) 30 mg SC DAILY [facility] Last Admin: 10/07/18 09:13 Dose: 30 mg Meropenem 500 mg/ Sodium (Chloride) 100 mls @ 100 mls/hr IVPB Q12H [facility]; Protocol Last Admin: 10/07/18 10:30 Dose: 100 mls/hr Sodium Chloride (Sodium Chloride 0.9%) 1,000 mls @ 100 mls/hr IV .Q10H [facility] Last Admin: 10/07/18 09:00 Dose: 100 mls/hr Dexmedetomidine HCl 200 mcg/ (Sodium Chloride) 50 mls @ 3.65 mls/hr IV TITR PRN; Protocol PRN Reason: Agitation Last Admin: 10/07/18 13:57 Dose: 0.7 mcg/kg/hr, 12.78 mls/hr Vancomycin HCl 750 mg/ Sodium (Chloride) 250 mls @ 166.6 mls/hr IVPB Q12H [facility]; Protocol Last Admin: 10/07/18 11:13 Dose: 166.6 mls/hr Norepinephrine Bitartrate 8 mg (/ Sodium Chloride) 508 mls @ 15.24 mls/hr IV .Q24H PRN; Protocol PRN Reason: TITRATE PER MD ORDER Morphine Sulfate (Morphine) 2 mg IVP Q4 PRN PRN Reason: Pain, severe (8-10) Last Admin: 10/07/18 14:00 Dose: 2 mg Pantoprazole Sodium (Protonix Inj) 40 mg IVP DAILY [facility] Last Admin: 10/07/18 09:13 Dose: 40 mg Sodium Bicarbonate (Sodium Bicarbonate Tab) 650 mg PO Q6 [facility] Last Admin: 10/07/18 17:15 Dose: 650 mg Sucralfate (Carafate Oral Susp) 1 gm PO DAILY [facility] Last Admin: 10/07/18 09:31 Dose: 1 gm - Labs Labs: 10/07/18 05:42 10/07/18 05:42 PT 23.0 SECONDS (9.7-12.2) H 10/04/18 15:35 INR 2.1 10/04/18 15:35 APTT 32 SECONDS (21-34) 10/04/18 15:35 - Constitutional Appears: Confused, Cachectic, Chronically Ill - Head Exam Head Exam: NORMOCEPHALIC - Eye Exam Eye Exam: absent: Scleral icterus - ENT Exam ENT Exam: Mucous Membranes Dry - Neck Exam Neck Exam: absent: Lymphadenopathy - Respiratory Exam Respiratory Exam: Decreased Breath Sounds - Cardiovascular Exam Cardiovascular Exam: REGULAR RHYTHM - GI/Abdominal Exam GI & Abdominal Exam: Distended, Soft - Rectal Exam Rectal Exam: Deferred - Exam Exam: NORMAL INSPECTION - Extremities Exam Extremities Exam: absent: Pedal Edema - Back Exam Back Exam: absent: CVA tenderness (R), NORMAL INSPECTION - Neurological Exam Neurological Exam: Altered Assessment and Plan (1) Alzheimer disease Status: Acute (2) DNR (do not resuscitate) Status: Acute (3) Gastric cancer Status: Acute (4) Severe sepsis Status: Acute - Assessment and Plan (Free Text) Assessment: await final cultures poor prognosis
--- NOTE | 2018-10-07 18:13 | CP.PCM.PN ---
Subjective - Date & Time of Evaluation Date of Evaluation: 10/07/18 Time of Evaluation: 10:00 - Subjective Subjective: clinically same Objective - Vital Signs/Intake and Output Vital Signs (last 24 hours): Temp Pulse Resp BP Pulse Ox 100.2 F H 113 H 14 109/65 100 10/07/18 06:40 10/07/18 17:55 10/07/18 17:55 10/07/18 17:55 10/07/18 17:55 Intake and Output: 10/07/18 10/07/18 06:59 18:59 Intake Total 3221.1500 5255.3 Output Total 850 680 Balance 2371.1500 4575.3 - Medications Medications: Current Medications Acetaminophen (Tylenol 650 Mg Supp) 650 mg ID Q8 PRN PRN Reason: Fever >100.4 F Last Admin: 10/07/18 05:40 Dose: 650 mg Albumin Human (Albumin Human 25% (12.5 Gm/50 Ml)) 12.5 gm IV Q8H [facility] Stop: 10/08/18 01:16 Last Admin: 10/07/18 17:14 Dose: 12.5 gm Apixaban (Eliquis) 2.5 mg PO BID [facility] Last Admin: 10/07/18 17:15 Dose: 2.5 mg Enoxaparin Sodium (Lovenox) 30 mg SC DAILY [facility] Last Admin: 10/07/18 09:13 Dose: 30 mg Meropenem 500 mg/ Sodium (Chloride) 100 mls @ 100 mls/hr IVPB Q12H [facility]; Protocol Last Admin: 10/07/18 10:30 Dose: 100 mls/hr Sodium Chloride (Sodium Chloride 0.9%) 1,000 mls @ 100 mls/hr IV .Q10H [facility] Last Admin: 10/07/18 09:00 Dose: 100 mls/hr Dexmedetomidine HCl 200 mcg/ (Sodium Chloride) 50 mls @ 3.65 mls/hr IV TITR PRN; Protocol PRN Reason: Agitation Last Admin: 10/07/18 13:57 Dose: 0.7 mcg/kg/hr, 12.78 mls/hr Vancomycin HCl 750 mg/ Sodium (Chloride) 250 mls @ 166.6 mls/hr IVPB Q12H [facility]; Protocol Last Admin: 10/07/18 11:13 Dose: 166.6 mls/hr Norepinephrine Bitartrate 8 mg (/ Sodium Chloride) 508 mls @ 15.24 mls/hr IV .Q24H PRN; Protocol PRN Reason: TITRATE PER MD ORDER Morphine Sulfate (Morphine) 2 mg IVP Q4 PRN PRN Reason: Pain, severe (8-10) Last Admin: 10/07/18 14:00 Dose: 2 mg Pantoprazole Sodium (Protonix Inj) 40 mg IVP DAILY [facility] Last Admin: 10/07/18 09:13 Dose: 40 mg Sodium Bicarbonate (Sodium Bicarbonate Tab) 650 mg PO Q6 [facility] Last Admin: 10/07/18 17:15 Dose: 650 mg Sucralfate (Carafate Oral Susp) 1 gm PO DAILY [facility] Last Admin: 10/07/18 09:31 Dose: 1 gm - Labs Labs: 10/07/18 05:42 10/07/18 05:42 PT 23.0 SECONDS (9.7-12.2) H 10/04/18 15:35 INR 2.1 10/04/18 15:35 APTT 32 SECONDS (21-34) 10/04/18 15:35 - Constitutional Appears: Well - Head Exam Head Exam: ATRAUMATIC, NORMAL INSPECTION, NORMOCEPHALIC - Eye Exam Eye Exam: EOMI, Normal appearance, PERRL Pupil Exam: NORMAL ACCOMODATION, PERRL - ENT Exam ENT Exam: Mucous Membranes Moist, Normal Exam - Neck Exam Neck Exam: Full ROM, Normal Inspection. absent: Lymphadenopathy - Respiratory Exam Respiratory Exam: Decreased Breath Sounds - Cardiovascular Exam Cardiovascular Exam: REGULAR RHYTHM, +S1, +S2 - GI/Abdominal Exam GI & Abdominal Exam: Soft, Diminished Bowel Sounds - Rectal Exam Rectal Exam: Deferred
[2018-10-07] MEDS: Norepinephrine 8 MG in Sodium Chloride 0.9% 500 ML IV PRN (18:22)
--- NOTE | 2018-10-07 18:33 | CP.PCM.CON ---
History of Present Illness - History of Present Illness History of Present Illness: 78 y/o female, with history of Stage IV gastric cancer, asthma, hypothyroidism, alzheimer's, sick sinus syndrome, pacemaker, and paroxysmal atrial fibrillation, is admitted 10/04/18 after being found unresponsive at [facility]. Patient was admitted to ICU with sepsis, intubated and IV abx. Receiving norepinephrine for septic shock. Persistently tachycardic. Recently on chemo for Stage IV gastric ca Review of Systems - Review of Systems Review of Systems: unable to obtain Past Patient History - Past Medical History & Family History Past Medical History?: Yes - Past Social History Smoking Status: Never Smoked - CARDIAC Hx Atrial Fibrillation: Yes Hx Hypertension: Yes - PULMONARY Hx Asthma: Yes - NEUROLOGICAL Hx Alzheimer's Disease: Yes Hx Dementia: Yes - HEENT Hx HEENT Problems: No Hx Cataracts: Yes Other/Comment: Sinus syndrome - RENAL Hx Chronic Kidney Disease: No - ENDOCRINE/METABOLIC Hx Hypothyroidism: Yes - HEMATOLOGICAL/ONCOLOGICAL Hx Blood Disorders: No - INTEGUMENTARY Hx Dermatological Problems: No - MUSCULOSKELETAL/RHEUMATOLOGICAL Hx Musculoskeletal Disorders: No Hx Falls: Yes - GASTROINTESTINAL Hx Gastrointestinal Disorders: No Hx Gastroesophageal Reflux: No Other/Comment: Stomach CA - GENITOURINARY/GYNECOLOGICAL Hx Genitourinary Disorders: No - PSYCHIATRIC Hx Substance Use: No - SURGICAL HISTORY Hx Surgeries: Yes Hx Cataract Extraction: Yes Hx Section: Yes (37 yrs ago) Hx Orthopedic Surgery: Yes (knee replacement) Other/Comment: l knee surgery. Pacemaker - ANESTHESIA Hx Anesthesia: Yes Hx Anesthesia Reactions: No Hx Malignant Hyperthermia: No Meds Allergies/Adverse Reactions: Allergies Allergy/AdvReac Type Severity Reaction Status Date / Time No Known Allergies Allergy Verified 08/22/15 09:05 - Medications Medications: Current Medications Acetaminophen (Tylenol 650 Mg Supp) 650 mg ID Q8 PRN PRN Reason: Fever >100.4 F Last Admin: 10/07/18 05:40 Dose: 650 mg Albumin Human (Albumin Human 25% (12.5 Gm/50 Ml)) 12.5 gm IV Q8H CHRISTIANO Stop: 10/08/18 01:16 Last Admin: 10/07/18 17:14 Dose: 12.5 gm Apixaban (Eliquis) 2.5 mg PO BID CHRISTIANO Last Admin: 10/07/18 17:15 Dose: 2.5 mg Enoxaparin Sodium (Lovenox) 30 mg SC DAILY [facility] Last Admin: 10/07/18 09:13 Dose: 30 mg Meropenem 500 mg/ Sodium (Chloride) 100 mls @ 100 mls/hr IVPB Q12H CHRISTIANO; [place] col Last Admin: 10/07/18 10:30 Dose: 100 mls/hr Sodium Chloride (Sodium Chloride 0.9%) 1,000 mls @ 100 mls/hr IV .Q10H [facility]IANO Last Admin: 10/07/18 09:00 Dose: 100 mls/hr Dexmedetomidine HCl 200 mcg/ (Sodium Chloride) 50 mls @ 3.65 mls/hr IV TITR PRN; Protocol PRN Reason: Agitation Last Admin: 10/07/18 18:20 Dose: 0.7 mcg/kg/hr, 12.78 mls/hr Vancomycin HCl 750 mg/ Sodium (Chloride) 250 mls @ 166.6 mls/hr IVPB Q12H CHRISTIANO; Protocol Last Admin: 10/07/18 11:13 Dose: 166.6 mls/hr Norepinephrine Bitartrate 8 mg (/ Sodium Chloride) 508 mls @ 15.24 mls/hr IV .Q24H PRN; Protocol PRN Reason: TITRATE PER MD ORDER Last Admin: 10/07/18 18:22 Dose: 25 mcg/min, 95.25 mls/hr Morphine Sulfate (Morphine) 2 mg IVP Q4 PRN PRN Reason: Pain, severe (8-10) Last Admin: 10/07/18 14:00 Dose: 2 mg Pantoprazole Sodium (Protonix Inj) 40 mg IVP DAILY [facility] Last Admin: 10/07/18 09:13 Dose: 40 mg Sodium Bicarbonate (Sodium Bicarbonate Tab) 650 mg PO Q6 [facility] Last Admin: 10/07/18 17:15 Dose: 650 mg Sucralfate (Carafate Oral Susp) 1 gm PO DAILY [facility] Last Admin: 10/07/18 09:31 Dose: 1 gm Physical Exam - Constitutional Appears: Cachectic, Chronically Ill Additional comments: Intubated and sedated - Cardiovascular Exam Cardiovascular Exam: Tachycardia, +S1, +S2 - GI/Abdominal Exam GI & Abdominal Exam: Soft. absent: Tenderness - Psychiatric Exam Additional comments: Intubated and sedated Results - Vital Signs Recent Vital Signs: Last Vital Signs Temp 98.6 F 10/07/18 16:00 Pulse 114 H 10/07/18 18:22 Resp 16 10/07/18 18:22 BP 99/72 L 10/07/18 18:22 Pulse Ox 100 10/07/18 18:22 - Labs Result Diagrams: 10/08/18 06:09 10/08/18 06:09 Labs: Laboratory Results - last 24 hr 10/06/18 10/07/18 10/07/18 20:29 00:23 04:10 WBC RBC Hgb Hct MCV MCH MCHC RDW Plt Count MPV Neut % (Auto) Lymph % (Auto) Wilkinson % (Auto) Eos % (Auto) Baso % (Auto) Neut # (Auto) Lymph # (Auto) Wilkinson # (Auto) Eos # (Auto) Baso # (Auto) Neutrophils % (Manual) Band Neutrophils % Lymphocytes % (Manual) Monocytes % (Manual) Nucleated RBC % Platelet Estimate Polychromasia Hypochromasia (manual) Anisocytosis (manual) Target Cells Puncture Site Rb pCO2 21 L pO2 167 H HCO3 15.0 L ABG pH 7.34 L ABG Total CO2 11.9 L ABG O2 Saturation 99.7 H ABG Base Excess -12.7 L ABG Hemoglobin 10.7 L ABG Carboxyhemoglobin 1.6 H POC ABG HHb (Measured) 0.3 ABG Methemoglobin 1.2 Tereso Test Na A-a O2 Difference 163.0 Respiratory Index 1.0 Hgb O2 Saturation 97.0 Vent Mode Prvc Mechanical Rate 18 FiO2 50.0 Tidal Volume 450 PEEP 5 Sodium Potassium Chloride Carbon Dioxide Anion Gap BUN Creatinine Est GFR ( Amer) Est GFR (Non-Af Amer) POC Glucose (mg/dL) 84 Random Glucose Calcium Phosphorus Magnesium Total Bilirubin AST ALT Alkaline Phosphatase Total Protein Albumin Globulin Albumin/Globulin Ratio Urine Color Yellow Urine Clarity Hazy Urine pH 5.0 Ur Specific [place] 1.016 Urine Protein Negative Urine Glucose (UA) Normal Urine Ketones Trace Urine Blood Trace H Urine Nitrate Negative Urine Bilirubin Negative Urine Urobilinogen Normal Ur Leukocyte Esterase Neg Urine WBC (Auto) 14 H Urine RBC (Auto) 2 Ur Squamous Epith Cells 1 Amorphous Sediment Few H Granular Casts (Auto) 5 10/07/18 10/07/18 10/07/18 05:42 05:42 06:21 WBC 15.7 H RBC 2.79 L Hgb 9.0 L Hct 28.0 L MCV 100.2 H MCH 32.1 H MCHC 32.0 L RDW 15.2 H Plt Count 118 L D MPV 9.7 Neut % (Auto) 88.6 H Lymph % (Auto) 5.4 L Wilkinson % (Auto) 5.4 Eos % (Auto) 0.2 Baso % (Auto) 0.4 Neut # (Auto) 13.9 H Lymph # (Auto) 0.8 L Wilkinson # (Auto) 0.8 Eos # (Auto) 0.0 Baso # (Auto) 0.1 Neutrophils % (Manual) 88 H Band Neutrophils % 3 H Lymphocytes % (Manual) 6 L Monocytes % (Manual) 3 Nucleated RBC % 1 H Platelet Estimate Slightly decreased L Polychromasia Slight Hypochromasia (manual) Slight Anisocytosis (manual) Slight Target Cells Slight Puncture Site pCO2 pO2 HCO3 ABG pH ABG Total CO2 ABG O2 Saturation ABG Base Excess ABG Hemoglobin ABG Carboxyhemoglobin POC ABG HHb (Measured) ABG Methemoglobin [place] Test A-a O2 Difference Respiratory Index Hgb O2 Saturation Vent Mode Mechanical Rate FiO2 Tidal Volume PEEP Sodium 147 Potassium 4.5 Chloride 125 H Carbon Dioxide 13 L Anion Gap 13 BUN 39 H Creatinine 1.1 Est GFR ( Amer) 58 Est GFR (Non-Af Amer) 48 POC Glucose (mg/dL) 92 Random Glucose 89 Calcium 6.7 L Phosphorus 4.2 Magnesium 2.1 Total Bilirubin 0.6 AST 655 H D ALT 107 H D Alkaline Phosphatase 299 H Total Protein 5.1 L Albumin 1.9 L Globulin 3.2 Albumin/Globulin Ratio 0.6 L Urine Color Urine Clarity Urine pH Ur Specific [place] Urine Protein Urine Glucose (UA) Urine Ketones Urine Blood Urine Nitrate Urine Bilirubin Urine Urobilinogen Ur Leukocyte Esterase Urine WBC (Auto) Urine RBC (Auto) Ur Squamous Epith Cells Amorphous Sediment Granular Casts (Auto) 10/07/18 10/07/18 13:34 17:33 WBC RBC Hgb Hct MCV MCH MCHC RDW Plt Count MPV Neut % (Auto) Lymph % (Auto) Wilkinson % (Auto) Eos % (Auto) Baso % (Auto) Neut # (Auto) Lymph # (Auto) Wilkinson # (Auto) Eos # (Auto) Baso # (Auto) Neutrophils % (Manual) Band Neutrophils % Lymphocytes % (Manual) Monocytes % (Manual) Nucleated RBC % Platelet Estimate Polychromasia Hypochromasia (manual) Anisocytosis (manual) Target Cells Puncture Site pCO2 pO2 HCO3 ABG pH ABG Total CO2 ABG O2 Saturation ABG Base Excess ABG Hemoglobin ABG Carboxyhemoglobin POC ABG HHb (Measured) ABG Methemoglobin [place] Test A-a O2 Difference Respiratory Index Hgb O2 Saturation Vent Mode Mechanical Rate FiO2 Tidal Volume PEEP Sodium Potassium Chloride Carbon Dioxide Anion Gap BUN Creatinine Est GFR ( Amer) Est GFR (Non-Af Amer) POC Glucose (mg/dL) 102 123 H Random Glucose Calcium Phosphorus Magnesium Total Bilirubin AST ALT Alkaline Phosphatase Total Protein Albumin Globulin Albumin/Globulin Ratio Urine Color Urine Clarity Urine pH Ur Specific [place] Urine Protein Urine Glucose (UA) Urine Ketones Urine Blood Urine Nitrate Urine Bilirubin Urine Urobilinogen Ur Leukocyte Esterase Urine WBC (Auto) Urine RBC (Auto) Ur Squamous Epith Cells Amorphous Sediment Granular Casts (Auto) - EKG Data EKG comments: Sinus tachycardia, as reviewed by me Assessment & Plan (1) Septic shock Assessment and Plan: Septic shocj secondary likely to UTI Currently in sinus tachycardia and norepeinephrine drip Sinus tachycardia is likely compensatory and requires treatment of the underlying issue Cont with pressor support Spoke at length with family regarding poor overall prognosis No further cardiac tests at this time Status: Acute (2) Acute respiratory failure with hypoxia Assessment and Plan: Mechanical ventilation Family to consider DNI/terminal extubation Status: Acute
[2018-10-07] MEDS ORDERED: Sodium Bicarbonate (8.4%) 50 Meq Syringe IVP ONE (18:45)
[2018-10-07] MEDS ORDERED: Thiamine 100 mg/ml Inj IV SCH (18:45)
--- NOTE | 2018-10-07 18:56 | CP.CCUPN ---
CCU Subjective - Physician Review Subjective (Free Text): 10/07/18 18:53 Patient seen and examined at [facility]. Patient intubated with metabolic acidosis and septic shock, intubated, unable to obtain ROS Critical Care Time Spent (in minutes): 35 CCU Objective - Vital Signs / Intake & Output Vital Signs (Last 4 hours): Vital Signs Temp Pulse Resp BP Pulse Ox 10/07/18 18:22 114 H 16 99/72 L 100 10/07/18 18:10 115 H 14 99/72 L 100 10/07/18 17:55 113 H 14 109/65 100 10/07/18 17:25 111 H 15 103/71 100 10/07/18 17:10 113 H 19 100/67 100 10/07/18 16:55 111 H 14 107/65 100 10/07/18 16:40 113 H 15 111/66 100 10/07/18 16:25 113 H 15 102/70 100 10/07/18 16:00 98.6 F 100 10/07/18 15:55 126 H 17 101/71 100 10/07/18 15:40 114 H 16 95/64 L 100 Intake and Output (Last 8hrs): Intake & Output 10/07/18 10/07/18 10/07/18 06:59 14:59 22:59 Intake Total 2386.4500 4548.9 756.4 Output Total 620 475 205 Balance 1766.4500 4073.9 551.4 Weight 176 lb 4.8 oz Intake: IV 716.7500 862 50 Intake, IV Amount 1549.7 3426.9 626.4 Right Distal Port 676.9 750.4 375.2 Right Medial Port 72.8 76.5 51.2 Right Proximal Port 800 2600.0 200 Tube Feeding 120 260 80 Output: Urine 620 475 205 Urethral ([place]) 620 475 205 Other: # Bowel Movements 0 - Physical Exam Head: Positive for: Atraumatic, Normocephalic Pupils: Positive for: PERRL Extroacular Muscles: Positive for: EOMI Conjunctiva: Positive for: Normal, Icteric Mouth: Positive for: Dry Respiratory/Chest: Positive for: Decreased Breath Sounds. Negative for: Clear to Auscultation, Respiratory Distress, Wheezes, Rhonchi Cardiovascular: Positive for: Normal S1, S2, Tachycardic. Negative for: Murmurs, Rub, Gallop Abdomen: Positive for: Normal Bowel Sounds, Scars. Negative for: Tenderness, Distention, Peritoneal Signs Upper Extremity: Positive for: Normal Inspection. Negative for: Cyanosis, Edema Lower Extremity: Positive for: Edema Neurological: Negative for: Speech Normal Skin: Positive for: Dry - Medications Active Medications: Active Medications Generic Name Dose Route Start Last Admin Trade Name Freq PRN Reason Stop Dose Admin Acetaminophen 650 mg 10/05/18 15:36 10/07/18 05:40 Tylenol 650 Mg Supp [place] 650 mg Q8 PRN Administration Fever >100.4 F Albumin Human 12.5 gm 10/07/18 09:15 10/07/18 17:14 Albumin Human 25% (12.5 Gm/50 Ml) IV 10/08/18 01:16 12.5 gm Q8H CHRISTIANO Administration Apixaban 2.5 mg 10/07/18 10:00 10/07/18 17:15 Eliquis PO 2.5 mg BID CHRISTIANO Administration Enoxaparin Sodium 30 mg 10/05/18 13:00 10/07/18 09:13 Lovenox SC 30 mg DAILY CHRISTIANO Administration Hydrocortisone Sodium Succinate 100 mg 10/08/18 03:00 Solu-Cortef IV Q8H CHRISTIANO Meropenem 500 mg/ Sodium 100 mls @ 100 mls/hr 10/05/18 11:30 10/07/18 10:30 Chloride IVPB 100 mls/hr Q12H CHRISTIANO Administration Protocol Sodium Chloride 1,000 mls @ 100 mls/hr 10/05/18 16:30 10/07/18 18:32 Sodium Chloride 0.9% IV 100 mls/hr .Q10H CHRISTIANO Administration Dexmedetomidine HCl 200 mcg/ 50 mls @ 3.65 mls/hr 10/06/18 09:53 10/07/18 18:20 Sodium Chloride IV 0.7 mcg/kg/hr TITR PRN 12.78 mls/hr Agitation Administration Protocol 0.2 MCG/KG/HR Vancomycin HCl 750 mg/ Sodium 250 mls @ 166.6 mls/hr 10/07/18 09:30 10/07/18 11:13 Chloride IVPB 166.6 mls/hr Q12H CHRISTIANO Administration Protocol Norepinephrine Bitartrate 8 mg 508 mls @ 15.24 mls/hr 10/07/18 16:45 10/07/18 18:22 / Sodium Chloride IV 25 mcg/min .Q24H PRN 95.25 mls/hr TITRATE PER MD ORDER Administration Protocol 4 MCG/MIN Hydrocortisone Sodium 100 mls @ 200 mls/hr 10/07/18 19:00 Succinate 300 mg/ Sodium IV 10/07/18 19:29 Chloride ONCE ONE Thiamine HCl 200 mg/ Sodium 102 mls @ 200 mls/hr 10/07/18 19:00 Chloride IM Q8H CHRISTIANO Morphine Sulfate 2 mg 10/04/18 19:51 10/07/18 14:00 Morphine IVP 2 mg Q4 PRN Administration Pain, severe (8-10) Pantoprazole Sodium 40 mg 10/04/18 20:00 10/07/18 09:13 Protonix Inj IVP 40 mg DAILY CHRISTIANO Administration Sodium Bicarbonate 1,300 mg 10/07/18 18:44 Sodium Bicarbonate Tab PO Q6 CHRISTIANO Sucralfate 1 gm 10/07/18 10:00 10/07/18 09:31 Carafate Oral Susp PO 1 gm DAILY CHRISTIANO Administration - Patient Studies Lab Studies: Microbiology Studies 10/04/18 16:00 Blood Culture - Preliminary Blood NO GROWTH AFTER 3 DAYS 10/04/18 15:20 S.aureus & Coag-Neg Staph PNA FISH - Final Blood Blood Culture - Preliminary Coagulase Neg Staphylococcus Gram Stain - Final 10/06/18 00:30 MRSA Culture (Admit) - Final Nose MRSA NOT DETECTED Lab Studies 10/07/18 10/07/18 10/07/18 Range/Units 17:33 13:34 06:21 WBC (4.8-10.8) K/uL RBC (3.80-5.20) Mil/uL Hgb (11.0-16.0) g/dL Hct (34.0-47.0) % MCV (81.0-99.0) fL MCH (27.0-31.0) pg MCHC (33.0-37.0) g/dL RDW (11.5-14.5) % Plt Count (130-400) K/uL MPV (7.2-11.7) fL Neut % (Auto) (50.0-75.0) % Lymph % (Auto) (20.0-40.0) % [place] % (Auto) (0.0-10.0) % Eos % (Auto) (0.0-4.0) % Baso % (Auto) (0.0-2.0) % Neut # (Auto) (1.8-7.0) K/uL Lymph # (Auto) (1.0-4.3) K/uL [place] # (Auto) (0.0-0.8) K/uL Eos # (Auto) (0.0-0.7) K/uL Baso # (Auto) (0.0-0.2) K/uL Neutrophils % (Manual) (50-75) % Band Neutrophils % (0-2) % Lymphocytes % (Manual) (20-40) % Monocytes % (Manual) (0-10) % Nucleated RBC % (0-0) % Platelet Estimate (NORMAL) Polychromasia Hypochromasia (manual) Anisocytosis (manual) Target Cells Puncture Site pCO2 (35-45) mm/Hg pO2 (80-100) mm/Hg HCO3 (21-28) mmol/L ABG pH (7.35-7.45) ABG Total CO2 (22-28) mmol/L ABG O2 Saturation (95-98) % ABG Base Excess (-2.0-3.0) mmol/L ABG Hemoglobin (11.7-17.4) g/dL ABG Carboxyhemoglobin (0.5-1.5) % POC ABG HHb (Measured) (0.0-5.0) % ABG Methemoglobin (0.0-3.0) % Tereso Test A-a O2 Difference mm/Hg Respiratory Index Hgb O2 Saturation (95.0-98.0) % Vent Mode Mechanical Rate FiO2 % Tidal Volume PEEP Sodium (132-148) mmol/L Potassium (3.6-5.2) mmol/L Chloride (98-107) mmol/L Carbon Dioxide (22-30) mmol/L Anion Gap (10-20) BUN (7-17) mg/dL Creatinine (0.7-1.2) mg/dL Est GFR ( Amer) Est GFR (Non-Af Amer) POC Glucose (mg/dL) 123 H 102 92 (65-110) mg/dL Random Glucose (65-105) mg/dL Calcium (8.6-10.4) mg/dl Phosphorus (2.5-4.5) mg/dL Magnesium (1.6-2.3) mg/dL Total Bilirubin (0.2-1.3) mg/dL AST (14-36) U/L ALT (9-52) U/L Alkaline Phosphatase (38-126) U/L Total Protein (6.3-8.3) g/dL Albumin (3.5-5.0) g/dL Globulin (2.2-3.9) gm/dL Albumin/Globulin Ratio (1.0-2.1) Urine Color (YELLOW) Urine Clarity (Clear) Urine pH (5.0-8.0) Ur Specific [place] (1.003-1.030) Urine Protein (NEGATIVE) mg/dL Urine Glucose (UA) (Normal) mg/dL Urine Ketones (NEGATIVE) mg/dL Urine Blood (NEGATIVE) Urine Nitrate (NEGATIVE) Urine Bilirubin (NEGATIVE) Urine Urobilinogen (0.2-1.0) mg/dL Ur Leukocyte Esterase (Negative) Lilo/uL Urine WBC (Auto) (0-5) /hpf Urine RBC (Auto) (0-3) /hpf Ur Squamous Epith Cells (0-5) /hpf Amorphous Sediment (<OCC) /ul Granular Casts (Auto) (0-1) /lpf 10/07/18 10/07/18 10/07/18 Range/Units 05:42 05:42 04:10 WBC 15.7 H (4.8-10.8) K/uL RBC 2.79 L (3.80-5.20) Mil/uL Hgb 9.0 L (11.0-16.0) g/dL Hct 28.0 L (34.0-47.0) % MCV 100.2 H (81.0-99.0) fL MCH 32.1 H (27.0-31.0) pg MCHC 32.0 L (33.0-37.0) g/dL RDW 15.2 H (11.5-14.5) % Plt Count 118 L D (130-400) K/uL MPV 9.7 (7.2-11.7) fL Neut % (Auto) 88.6 H (50.0-75.0) % Lymph % (Auto) 5.4 L (20.0-40.0) % [place] % (Auto) 5.4 (0.0-10.0) % Eos % (Auto) 0.2 (0.0-4.0) % Baso % (Auto) 0.4 (0.0-2.0) % Neut # (Auto) 13.9 H (1.8-7.0) K/uL Lymph # (Auto) 0.8 L (1.0-4.3) K/uL [place] # (Auto) 0.8 (0.0-0.8) K/uL Eos # (Auto) 0.0 (0.0-0.7) K/uL Baso # (Auto) 0.1 (0.0-0.2) K/uL Neutrophils % (Manual) 88 H (50-75) % Band Neutrophils % 3 H (0-2) % Lymphocytes % (Manual) 6 L (20-40) % Monocytes % (Manual) 3 (0-10) % Nucleated RBC % 1 H (0-0) % Platelet Estimate Slightly decreased L (NORMAL) Polychromasia Slight Hypochromasia (manual) Slight Anisocytosis (manual) Slight Target Cells Slight Puncture Site Rb pCO2 21 L (35-45) mm/Hg pO2 167 H (80-100) mm/Hg HCO3 15.0 L (21-28) mmol/L ABG pH 7.34 L (7.35-7.45) ABG Total CO2 11.9 L (22-28) mmol/L ABG O2 Saturation 99.7 H (95-98) % ABG Base Excess -12.7 L (-2.0-3.0) mmol/L ABG Hemoglobin 10.7 L (11.7-17.4) g/dL ABG Carboxyhemoglobin 1.6 H (0.5-1.5) % POC ABG HHb (Measured) 0.3 (0.0-5.0) % ABG Methemoglobin 1.2 (0.0-3.0) % Tereso Test Na A-a O2 Difference 163.0 mm/Hg Respiratory Index 1.0 Hgb O2 Saturation 97.0 (95.0-98.0) % Vent Mode Prvc Mechanical Rate 18 FiO2 50.0 % Tidal Volume 450 PEEP 5 Sodium 147 (132-148) mmol/L Potassium 4.5 (3.6-5.2) mmol/L Chloride 125 H (98-107) mmol/L Carbon Dioxide 13 L (22-30) mmol/L Anion Gap 13 (10-20) BUN 39 H (7-17) mg/dL Creatinine 1.1 (0.7-1.2) mg/dL Est GFR ( Amer) 58 Est GFR (Non-Af Amer) 48 POC Glucose (mg/dL) (65-110) mg/dL Random Glucose 89 (65-105) mg/dL Calcium 6.7 L (8.6-10.4) mg/dl Phosphorus 4.2 (2.5-4.5) mg/dL Magnesium 2.1 (1.6-2.3) mg/dL Total Bilirubin 0.6 (0.2-1.3) mg/dL AST 655 H D (14-36) U/L ALT 107 H D (9-52) U/L Alkaline Phosphatase 299 H (38-126) U/L Total Protein 5.1 L (6.3-8.3) g/dL Albumin 1.9 L (3.5-5.0) g/dL Globulin 3.2 (2.2-3.9) gm/dL Albumin/Globulin Ratio 0.6 L (1.0-2.1) Urine Color (YELLOW) Urine Clarity (Clear) Urine pH (5.0-8.0) Ur Specific [place] (1.003-1.030) Urine Protein (NEGATIVE) mg/dL Urine Glucose (UA) (Normal) mg/dL Urine Ketones (NEGATIVE) mg/dL Urine Blood (NEGATIVE) Urine Nitrate (NEGATIVE) Urine Bilirubin (NEGATIVE) Urine Urobilinogen (0.2-1.0) mg/dL Ur Leukocyte Esterase (Negative) [place]ilo/uL Urine WBC (Auto) (0-5) /hpf Urine RBC (Auto) (0-3) /hpf Ur Squamous Epith Cells (0-5) /hpf Amorphous Sediment (<OCC) /ul Granular Casts (Auto) (0-1) /lpf 10/07/18 10/06/18 Range/Units 00:23 20:29 WBC (4.8-10.8) K/uL RBC (3.80-5.20) Mil/uL Hgb (11.0-16.0) g/dL Hct (34.0-47.0) % MCV (81.0-99.0) fL MCH (27.0-31.0) pg MCHC (33.0-37.0) g/dL RDW (11.5-14.5) % Plt Count (130-400) K/uL MPV (7.2-11.7) fL Neut % (Auto) (50.0-75.0) % Lymph % (Auto) (20.0-40.0) % [place] % (Auto) (0.0-10.0) % Eos % (Auto) (0.0-4.0) % Baso % (Auto) (0.0-2.0) % Neut # (Auto) (1.8-7.0) K/uL Lymph # (Auto) (1.0-4.3) K/uL [place] # (Auto) (0.0-0.8) K/uL Eos # (Auto) (0.0-0.7) K/uL Baso # (Auto) (0.0-0.2) K/uL Neutrophils % (Manual) (50-75) % Band Neutrophils % (0-2) % Lymphocytes % (Manual) (20-40) % Monocytes % (Manual) (0-10) % Nucleated RBC % (0-0) % Platelet Estimate (NORMAL) Polychromasia Hypochromasia (manual) Anisocytosis (manual) Target Cells Puncture Site pCO2 (35-45) mm/Hg pO2 (80-100) mm/Hg HCO3 (21-28) mmol/L ABG pH (7.35-7.45) ABG Total CO2 (22-28) mmol/L ABG O2 Saturation (95-98) % ABG Base Excess (-2.0-3.0) mmol/L ABG Hemoglobin (11.7-17.4) g/dL ABG Carboxyhemoglobin (0.5-1.5) % POC ABG HHb (Measured) (0.0-5.0) % ABG Methemoglobin (0.0-3.0) % Tereso Test A-a O2 Difference mm/Hg Respiratory Index Hgb O2 Saturation (95.0-98.0) % Vent Mode Mechanical Rate FiO2 % Tidal Volume PEEP Sodium (132-148) mmol/L Potassium (3.6-5.2) mmol/L Chloride (98-107) mmol/L Carbon Dioxide (22-30) mmol/L Anion Gap (10-20) BUN (7-17) mg/dL Creatinine (0.7-1.2) mg/dL Est GFR ( Amer) Est GFR (Non-Af Amer) POC Glucose (mg/dL) 84 (65-110) mg/dL Random Glucose (65-105) mg/dL Calcium (8.6-10.4) mg/dl Phosphorus (2.5-4.5) mg/dL Magnesium (1.6-2.3) mg/dL Total Bilirubin (0.2-1.3) mg/dL AST (14-36) U/L ALT (9-52) U/L Alkaline Phosphatase (38-126) U/L Total Protein (6.3-8.3) g/dL Albumin (3.5-5.0) g/dL Globulin (2.2-3.9) gm/dL Albumin/Globulin Ratio (1.0-2.1) Urine Color Yellow (YELLOW) Urine Clarity Hazy (Clear) Urine pH 5.0 (5.0-8.0) Ur Specific [place] 1.016 (1.003-1.030) Urine Protein Negative (NEGATIVE) mg/dL Urine Glucose (UA) Normal (Normal) mg/dL Urine Ketones Trace (NEGATIVE) mg/dL Urine Blood Trace H (NEGATIVE) Urine Nitrate Negative (NEGATIVE) Urine Bilirubin Negative (NEGATIVE) Urine Urobilinogen Normal (0.2-1.0) mg/dL Ur Leukocyte Esterase Neg (Negative) Lilo/uL Urine WBC (Auto) 14 H (0-5) /hpf Urine RBC (Auto) 2 (0-3) /hpf Ur Squamous Epith Cells 1 (0-5) /hpf Amorphous Sediment Few H (<OCC) /ul Granular Casts (Auto) 5 (0-1) /lpf Laboratory Results - last 24 hr 10/06/18 10/07/18 10/07/18 20:29 00:23 04:10 WBC RBC Hgb Hct MCV MCH MCHC RDW Plt Count MPV Neut % (Auto) Lymph % (Auto) [place] % (Auto) Eos % (Auto) Baso % (Auto) Neut # (Auto) Lymph # (Auto) [place] # (Auto) Eos # (Auto) Baso # (Auto) Neutrophils % (Manual) Band Neutrophils % Lymphocytes % (Manual) Monocytes % (Manual) Nucleated RBC % Platelet Estimate Polychromasia Hypochromasia (manual) Anisocytosis (manual) Target Cells Puncture Site Rb pCO2 21 L pO2 167 H HCO3 15.0 L ABG pH 7.34 L ABG Total CO2 11.9 L ABG O2 Saturation 99.7 H ABG Base Excess -12.7 L ABG Hemoglobin 10.7 L ABG Carboxyhemoglobin 1.6 H POC ABG HHb (Measured) 0.3 ABG Methemoglobin 1.2 Tereso Test Na A-a O2 Difference 163.0 Respiratory Index 1.0 Hgb O2 Saturation 97.0 Vent Mode Prvc Mechanical Rate 18 FiO2 50.0 Tidal Volume 450 PEEP 5 Sodium Potassium Chloride Carbon Dioxide Anion Gap BUN Creatinine Est GFR ( Amer) Est GFR (Non-Af Amer) POC Glucose (mg/dL) 84 Random Glucose Calcium Phosphorus Magnesium Total Bilirubin AST ALT Alkaline Phosphatase Total Protein Albumin Globulin Albumin/Globulin Ratio Urine Color Yellow Urine Clarity Hazy Urine pH 5.0 Ur Specific [place] 1.016 Urine Protein Negative Urine Glucose (UA) Normal Urine Ketones Trace Urine Blood Trace H Urine Nitrate Negative Urine Bilirubin Negative Urine Urobilinogen Normal Ur Leukocyte Esterase Neg Urine WBC (Auto) 14 H Urine RBC (Auto) 2 Ur Squamous Epith Cells 1 Amorphous Sediment Few H Granular Casts (Auto) 5 10/07/18 10/07/18 10/07/18 05:42 05:42 06:21 WBC 15.7 H RBC 2.79 L Hgb 9.0 L Hct 28.0 L MCV 100.2 H MCH 32.1 H MCHC 32.0 L RDW 15.2 H Plt Count 118 L D MPV 9.7 Neut % (Auto) 88.6 H Lymph % (Auto) 5.4 L [place] % (Auto) 5.4 Eos % (Auto) 0.2 Baso % (Auto) 0.4 Neut # (Auto) 13.9 H Lymph # (Auto) 0.8 L [place] # (Auto) 0.8 Eos # (Auto) 0.0 Baso # (Auto) 0.1 Neutrophils % (Manual) 88 H Band Neutrophils % 3 H Lymphocytes % (Manual) 6 L Monocytes % (Manual) 3 Nucleated RBC % 1 H Platelet Estimate Slightly decreased L Polychromasia Slight Hypochromasia (manual) Slight Anisocytosis (manual) Slight Target Cells Slight Puncture Site pCO2 pO2 HCO3 ABG pH ABG Total CO2 ABG O2 Saturation ABG Base Excess ABG Hemoglobin ABG Carboxyhemoglobin POC ABG HHb (Measured) ABG Methemoglobin Tereso Test A-a O2 Difference Respiratory Index Hgb O2 Saturation Vent Mode Mechanical Rate FiO2 Tidal Volume PEEP Sodium 147 Potassium 4.5 Chloride 125 H Carbon Dioxide 13 L Anion Gap 13 BUN 39 H Creatinine 1.1 Est GFR ( Amer) 58 Est GFR (Non-Af Amer) 48 POC Glucose (mg/dL) 92 Random Glucose 89 Calcium 6.7 L Phosphorus 4.2 Magnesium 2.1 Total Bilirubin 0.6 AST 655 H D ALT 107 H D Alkaline Phosphatase 299 H Total Protein 5.1 L Albumin 1.9 L Globulin 3.2 Albumin/Globulin Ratio 0.6 L Urine Color Urine Clarity Urine pH Ur Specific [place] Urine Protein Urine Glucose (UA) Urine Ketones Urine Blood Urine Nitrate Urine Bilirubin Urine Urobilinogen Ur Leukocyte Esterase Urine WBC (Auto) Urine RBC (Auto) Ur Squamous Epith Cells Amorphous Sediment Granular Casts (Auto) 10/07/18 10/07/18 13:34 17:33 WBC RBC Hgb Hct MCV MCH MCHC RDW Plt Count MPV Neut % (Auto) Lymph % (Auto) [place] % (Auto) Eos % (Auto) Baso % (Auto) Neut # (Auto) Lymph # (Auto) [place] # (Auto) Eos # (Auto) Baso # (Auto) Neutrophils % (Manual) Band Neutrophils % Lymphocytes % (Manual) Monocytes % (Manual) Nucleated RBC % Platelet Estimate Polychromasia Hypochromasia (manual) Anisocytosis (manual) Target Cells Puncture Site pCO2 pO2 HCO3 ABG pH ABG Total CO2 ABG O2 Saturation ABG Base Excess ABG Hemoglobin ABG Carboxyhemoglobin POC ABG HHb (Measured) ABG Methemoglobin Tereso Test A-a O2 Difference Respiratory Index Hgb O2 Saturation Vent Mode Mechanical Rate FiO2 Tidal Volume PEEP Sodium Potassium Chloride Carbon Dioxide Anion Gap BUN Creatinine Est GFR ( Amer) Est GFR (Non-Af Amer) POC Glucose (mg/dL) 102 123 H Random Glucose Calcium Phosphorus Magnesium Total Bilirubin AST ALT Alkaline Phosphatase Total Protein Albumin Globulin Albumin/Globulin Ratio Urine Color Urine Clarity Urine pH Ur Specific [place] Urine Protein Urine Glucose (UA) Urine Ketones Urine Blood Urine Nitrate Urine Bilirubin Urine Urobilinogen Ur Leukocyte Esterase Urine WBC (Auto) Urine RBC (Auto) Ur Squamous Epith Cells Amorphous Sediment Granular Casts (Auto) Radiology Impressions: Radiology Impressions Chest X-Ray 10/07/18 06:00 IMPRESSION: Support lines and tubes as above. Minor central pulmonary vascular congestive changes with bibasilar atelectasis and/or infiltrates and small bilateral effusions left larger than right Fingerstick Blood Sugar Results: 123 Review of Systems - Review of Systems Systems not reviewed;Unavailable: Intubated Assessment/Plan - Assessment and Plan (Free Text) Assessment: Septic shock: start marik protocol with hydrocortisone/vitamin c and thiamine, titrate off pressors, keep MAP >65, source control, GNR sepsis: continue abx as per ID, covering organism -Hypoxic respiratory failure: continue ventilatio to keep spo2 >92 and pH b/w 7.35-7.45, -severe malnuttition: continue tube feeds -BGM q6hrs, ISS aspart -DVT ppx eliquis -PUD ppx -Metastatic Ca: poor prognosis 2nd metastasis Patient remains critical cc time 35 minutes - Date & Time Date: 10/07/18 Time: 18:56
[2018-10-07] MEDS ORDERED: HYDROmorphone 0.5 mg/0.5 ml ISec IVP PRN (18:58)
[2018-10-07] MEDS ORDERED: SODIUM CHLORIDE 0.9% IV ONE (19:00)
[2018-10-07] MEDS ORDERED: HYDROCORTISONE IV ONE (19:00)
[2018-10-07] MEDS ORDERED: Thiamine 200 MG in Sodium Chloride 0.9% 100 ML IM SCH (19:00)
[2018-10-07] MEDS ORDERED: Albumin Human 25% (12.5 gm/50 ml) IV SCH (19:25)
[2018-10-07] MEDS: Thiamine 200 MG in Sodium Chloride 0.9% 100 ML IV SCH (20:00)
[2018-10-07] MEDS: Vasopressin 40 UNITS in Dextrose 5% In Water 38 ML IV SCH (20:15)
[2018-10-08] MEDS: Thiamine 200 MG in Sodium Chloride 0.9% 100 ML IV SCH ×2 (02:45→10:30)
[2018-10-08] MEDS: Dexmedetomidine Hydrochloride 200 MCG in Sodium Chloride 0.9% 48 ML IV PRN ×2 (03:10→08:33)
[2018-10-08] MEDS: Norepinephrine 8 MG in Sodium Chloride 0.9% 500 ML IV PRN (03:30)
[2018-10-08 05:54] LABS: ABG ALLEN TEST POS; ARTERIAL BLOOD GAS HCO3 15.1 mmol/L (21-28); ARTERIAL BLOOD GAS HEMOGLOBIN 14.4 g/dL (11.7-17.4); ARTERIAL BLOOD GAS O2 SAT 98.5 % (95-98); ARTERIAL BLOOD GAS PCO2 23 mm/Hg (35-45); ARTERIAL BLOOD GAS PH 7.31 (7.35-7.45); ARTERIAL BLOOD GAS PO2 93 mm/Hg (80-100); ARTERIAL BLOOD GAS TCO2 12.3 mmol/L (22-28)
[2018-10-08 06:14] LABS: BASO # 0.1 K/uL (0.0-0.2); BASO % 0.5 % (0.0-2.0); EOS % 0.1 % (0.0-4.0); LYMPH # 0.5 K/uL (1.0-4.3); LYMPH % 3.4 % (20.0-40.0); MEAN CELL VOLUME 100.9 fL (81.0-99.0); MEAN CORPUSCULAR HGB CONC 31.7 g/dL (33.0-37.0); MEAN PLATELET VOLUME 9.5 fL (7.2-11.7); MONO # 0.2 K/uL (0.0-0.8); MONO % 1.6 % (0.0-10.0); NEUT # 13.7 K/uL (1.8-7.0); NEUT % 94.4 % (50.0-75.0); NRBC % 0.5 % (0.0-2.0); PLATELET COUNT 79 K/uL (130-400); RBC 2.51 Mil/uL (3.80-5.20); RED CELL DISTRIBUTION WIDTH 15.7 % (11.5-14.5); WHITE BLOOD COUNT 14.5 K/uL (4.8-10.8)
[2018-10-08 06:40] LABS: ALB/GLOB RATIO 0.7 (1.0-2.1); ALBUMIN 2.3 g/dL (3.5-5.0); ALT/SGPT 74 U/L (9-52); AST/SGOT 249 U/L (14-36); BLOOD UREA NITROGEN 33 mg/dL (7-17); CALCIUM 7.2 mg/dl (8.6-10.4); GFR NON-AFRICAN AMERICAN > 60
[2018-10-08] MEDS: Sodium Chloride 0.9% 1,000 ML IV SCH ×2 (06:47→12:26)
[2018-10-08 08:11] LABS: BANDS 3 % (0-2); MONOCYTE 3 % (0-10); NEUTROPHIL 90 % (50-75); NUCLEATED RED BLOOD CELL 1 % (0-0); TOTAL CELLS COUNTED 100
[2018-10-08 08:12] LABS: ANISOCYTOSIS SLIGHT; HYPOCHROMIC SLIGHT; LYMPHOCYTE 4 % (20-40); PLATELET ESTIMATE DECREASED (NORMAL); POLYCHROMIC SLIGHT; TARGET CELLS SLIGHT
[2018-10-08] MEDS: Vasopressin 40 UNITS in Dextrose 5% In Water 38 ML IV SCH ×2 (08:32→12:00)
[2018-10-08] MEDS: Sucralfate 1 gm/10 ml Oral Susp UD PO SCH (09:47)
[2018-10-08] MEDS ORDERED: Pantoprazole 40 mg Susp UD GT SCH (10:00)
[2018-10-08] MEDS ORDERED: Multiple Vitamins Oral Solution PO SCH (10:00)
[2018-10-08] MEDS ORDERED: Lactated Ringer's 1,000 ML IV SCH (10:45)
--- NOTE | 2018-10-08 10:47 | CP.PCM.PN ---
Subjective - Date & Time of Evaluation Date of Evaluation: 10/08/18 Time of Evaluation: 10:45 - Subjective Subjective: Pt is not responsive, remains on pressors, with stable BP Objective - Vital Signs/Intake and Output Vital Signs (last 24 hours): Temp Pulse Resp BP Pulse Ox 99.4 F 99 H 24 115/61 98 10/08/18 04:00 10/08/18 09:00 10/08/18 09:00 10/08/18 09:00 10/08/18 09:00 Intake and Output: 10/08/18 10/08/18 06:59 18:59 Intake Total 3214.25 253.1 Output Total 600 50 Balance 2614.25 203.1 - Medications Medications: Current Medications Acetaminophen (Tylenol 650 Mg Supp) 650 mg MT Q8 PRN PRN Reason: Fever >100.4 F Last Admin: 10/07/18 05:40 Dose: 650 mg Apixaban (Eliquis) 2.5 mg PO BID CHRISTIANO Last Admin: 10/07/18 17:15 Dose: 2.5 mg Hydrocortisone Sodium Succinate (Solu-Cortef) 100 mg IV Q8H CHRISTIANO Last Admin: 10/08/18 02:52 Dose: 100 mg Hydromorphone HCl (Dilaudid) 0.5 mg IVP Q6H PRN PRN Reason: Pain, severe (8-10) Last Admin: 10/08/18 02:52 Dose: 0.5 mg Meropenem 500 mg/ Sodium (Chloride) 100 mls @ 100 mls/hr IVPB Q12H CHRISTIANO; Protocol Last Admin: 10/08/18 00:00 Dose: 100 mls/hr Sodium Chloride (Sodium Chloride 0.9%) 1,000 mls @ 100 mls/hr IV .Q10H CHRISTIANO Last Admin: 10/08/18 06:47 Dose: Not Given Dexmedetomidine HCl 200 mcg/ (Sodium Chloride) 50 mls @ 3.65 mls/hr IV TITR PRN; Protocol PRN Reason: Agitation Last Admin: 10/08/18 08:33 Dose: 0.7 mcg/kg/hr, 12.78 mls/hr Vancomycin HCl 750 mg/ Sodium (Chloride) 250 mls @ 166.6 mls/hr IVPB Q12H CHRISTIANO; Protocol Last Admin: 10/08/18 08:35 Dose: 166.6 mls/hr Norepinephrine Bitartrate 8 mg (/ Sodium Chloride) 508 mls @ 15.24 mls/hr IV .Q24H PRN; Protocol PRN Reason: TITRATE PER MD ORDER Last Titration: 10/08/18 05:30 Dose: 7 mcg/min, 26.67 mls/hr Thiamine HCl 200 mg/ Sodium (Chloride) 102 mls @ 200 mls/hr IV Q8H [facility] Last Admin: 10/08/18 02:45 Dose: 200 mls/hr Vasopressin 40 units/ Dextrose 40 mls @ 2.4 mls/hr IV .[id number] CHRISTIANO; Protocol Last Admin: 10/08/18 08:32 Dose: 0.04 units/min, 2.4 mls/hr Sodium Bicarbonate 75 ml/ (Sodium Chloride) 1,075 mls @ 100 mls/hr IV .[id number] [facility] Multivitamins/Vitamin C (Multi-Delyn Liquid) 5 ml PO DAILY [facility] Pantoprazole Sodium (Protonix Susp) 40 mg GT DAILY [facility] Last Admin: 10/08/18 09:47 Dose: 40 mg Sodium Bicarbonate (Sodium Bicarbonate Tab) 1,300 mg PO Q6 CHRISTIANO Last Admin: 10/08/18 06:47 Dose: 1,300 mg Sucralfate (Carafate Oral Susp) 1 gm PO DAILY [facility] Last Admin: 10/08/18 09:47 Dose: 1 gm - Labs Labs: 10/08/18 06:09 10/08/18 06:09 PT 23.0 SECONDS (9.7-12.2) H 10/04/18 15:35 INR 2.1 10/04/18 15:35 APTT 32 SECONDS (21-34) 10/04/18 15:35 - Constitutional Appears: Chronically Ill - Head Exam Head Exam: ATRAUMATIC, NORMAL INSPECTION - ENT Exam ENT Exam: Mucous Membranes Dry - Neck Exam Neck Exam: Full ROM, Normal Inspection - Respiratory Exam Respiratory Exam: Decreased Breath Sounds - Cardiovascular Exam Cardiovascular Exam: REGULAR RHYTHM - GI/Abdominal Exam GI & Abdominal Exam: Soft - Exam External exam: NORMAL EXTERNAL EXAM - Extremities Exam Extremities Exam: Normal Inspection - Back Exam Back Exam: NORMAL INSPECTION - Skin Skin Exam: Dry, Warm Assessment and Plan - Assessment and Plan (Free Text) Assessment: 1. Gradual taper of pressors advised. 2. Await repeat cxr report. 3. prognosis poor.
--- NOTE | 2018-10-08 11:31 | RAD ---
Date of service: 10/08/2018 HISTORY: intubation COMPARISON: 10/07/2018 FINDINGS: LUNGS: Although lung volumes are still shallow the inspiration appears slightly greater now than before. No worsening consolidation seen. Subsegmental left basal atelectasis and/or subsegmental infiltrate here noted. No significant appearing change. Endotracheal tube tip approximately 2 cm from the michell. PLEURA: No significant pleural effusion identified, no pneumothorax apparent. CARDIOVASCULAR: There is absence of aortic atherosclerotic calcification on x-ray.. The thoracic aorta is prominent and unfolded this unfolded appearance is accentuated on the current projection. Right internal jugular vein catheter tip estimated cavoatrial junction. Dual lead pacemaker device appears intact and similar position. The the positioning appears satisfactory. Mild cardiomegaly- mild pulmonary venous congestion OSSEOUS STRUCTURES: No significant abnormalities. VISUALIZED UPPER ABDOMEN: Nasogastric tube inserted tip in stomach. OTHER FINDINGS: None. IMPRESSION: The subsegmental atelectasis and/or subsegmental infiltrate at the left lung base is similar. Cardiomegaly and pulmonary venous congestion grossly similar. 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 Endotracheal tube, right internal jugular catheter, NG tube and pacemaker leads all appear satisfactory.
[2018-10-08] MEDS ORDERED: Enoxaparin 80 mg Syringe SC SCH (12:00)
[2018-10-08] MEDS: Meropenem 500 MG in Sodium Chloride 0.9% 100 ML IVPB SCH ×2 (12:01)
[2018-10-08] MEDS ORDERED: Acetaminophen 650mg/20.3ml solution UD PO PRN (12:17)
--- NOTE | 2018-10-08 12:38 | CP.CCUPN ---
<Kevin Benoit - Last Filed: 10/08/18 15:04> CCU Objective - Vital Signs / Intake & Output Vital Signs (Last 4 hours): Vital Signs Temp Pulse Resp BP Pulse Ox 10/08/18 13:30 100.4 F H 10/08/18 13:00 97 H 23 125/62 100 10/08/18 12:30 100.8 F H 97 H 22 121/62 100 10/08/18 12:00 102 H 25 H 119/65 100 10/08/18 11:30 97 H 19 121/55 L 98 Intake and Output (Last 8hrs): Intake & Output 10/08/18 10/08/18 10/08/18 06:59 14:59 22:59 Intake Total 1765.37 253.1 Output Total 450 50 Balance 1315.37 203.1 Weight 190 lb 4.8 oz Intake: IV 317.67 84.8 Intake, IV Amount 1127.7 128.3 Right Distal Port 260.9 38.1 Right Medial Port 102.4 12.8 right AC Y port 747 75 right Distal Y port 17.4 2.4 Oral 0 0 Tube Feeding 320 40 Output: Urine 450 50 Urethral ([place]) 450 50 - Medications Active Medications: Active Medications Generic Name Dose Route Start Last Admin Trade Name Freq PRN Reason Stop Dose Admin Acetaminophen 650 mg 10/08/18 12:17 10/08/18 12:30 Tylenol 650mg/20.3ml Solution Ud PO 650 mg Q6 PRN Administration Temperature Enoxaparin Sodium 80 mg 10/09/18 10:00 Lovenox SC DAILY CHRISTIANO Hydrocortisone Sodium Succinate 100 mg 10/08/18 03:00 10/08/18 12:07 Solu-Cortef IV 100 mg Q8H CHRISTIANO Administration Hydromorphone HCl 0.5 mg 10/07/18 18:58 10/08/18 02:52 Dilaudid IVP 0.5 mg Q6H PRN Administration Pain, severe (8-10) Meropenem 500 mg/ Sodium 100 mls @ 100 mls/hr 10/05/18 11:30 10/08/18 12:01 Chloride IVPB 100 mls/hr Q12H CHRISTIANO Administration Protocol Dexmedetomidine HCl 200 mcg/ 50 mls @ 3.65 mls/hr 10/06/18 09:53 10/08/18 08:33 Sodium Chloride IV 0.7 mcg/kg/hr TITR PRN 12.78 mls/hr Agitation Administration Protocol 0.2 MCG/KG/HR Vancomycin HCl 750 mg/ Sodium 250 mls @ 166.6 mls/hr 10/07/18 09:30 10/08/18 08:35 Chloride IVPB 166.6 mls/hr Q12H CHRISTIANO Administration Protocol Norepinephrine Bitartrate 8 mg 508 mls @ 15.24 mls/hr 10/07/18 16:45 10/08/18 05:30 / Sodium Chloride IV 7 mcg/min .Q24H PRN 26.67 mls/hr TITRATE PER MD ORDER Titration Protocol 4 MCG/MIN Thiamine HCl 200 mg/ Sodium 102 mls @ 200 mls/hr 10/07/18 19:00 10/08/18 10:30 Chloride IV 200 mls/hr Q8H CHRISTIANO Administration Vasopressin 40 units/ Dextrose 40 mls @ 2.4 mls/hr 10/07/18 19:15 10/08/18 12:00 IV Not Given .[id number] CHRISTIANO Protocol 0.04 UNITS/MIN Sodium Bicarbonate 75 meq/ 1,075 mls @ 100 mls/hr 10/08/18 11:30 10/08/18 12:13 Sodium Chloride IV 100 mls/hr .[id number] CHRISTIANO Administration Morphine Sulfate 250 mg/ 250 mls @ 5 mls/hr 10/08/18 13:45 10/08/18 14:18 Dextrose IV 5 ml/hr .Q24H PRN 5 mls/hr Pain, moderate (4-7) Administration Protocol Multivitamins/Vitamin C 5 ml 10/08/18 10:00 10/08/18 10:00 Multi-Delyn Liquid PO 5 ml DAILY CRHISTIANO Administration Pantoprazole Sodium 40 mg 10/08/18 10:00 10/08/18 09:47 Protonix Susp GT 40 mg DAILY CHRISTIANO Administration Sucralfate 1 gm 10/07/18 10:00 10/08/18 09:47 Carafate Oral Susp PO 1 gm DAILY CHRISTIANO Administration - Patient Studies Lab Studies: Microbiology Studies 10/04/18 15:20 S.aureus & Coag-Neg Staph PNA FISH - Final Blood Blood Culture - Final Coagulase Neg Staphylococcus Gram Stain - Final 10/07/18 00:23 Urine Culture - Final Urine,Catheterized No Growth (<1,000 CFU/ML) 10/04/18 16:00 Blood Culture - Preliminary Blood NO GROWTH AFTER 3 DAYS 10/06/18 00:30 MRSA Culture (Admit) - Final Nose MRSA NOT DETECTED Lab Studies 10/08/18 10/08/18 10/08/18 Range/Units 06:27 06:09 06:09 WBC 14.5 H (4.8-10.8) K/uL RBC 2.51 L (3.80-5.20) Mil/uL Hgb 8.0 L (11.0-16.0) g/dL Hct 25.3 L (34.0-47.0) % MCV 100.9 H (81.0-99.0) fL MCH 32.0 H (27.0-31.0) pg MCHC 31.7 L (33.0-37.0) g/dL RDW 15.7 H (11.5-14.5) % Plt Count 79 L D (130-400) K/uL MPV 9.5 (7.2-11.7) fL Neut % (Auto) 94.4 H (50.0-75.0) % Lymph % (Auto) 3.4 L (20.0-40.0) % [place] % (Auto) 1.6 (0.0-10.0) % Eos % (Auto) 0.1 (0.0-4.0) % Baso % (Auto) 0.5 (0.0-2.0) % Neut # (Auto) 13.7 H (1.8-7.0) K/uL Lymph # (Auto) 0.5 L (1.0-4.3) K/uL [place] # (Auto) 0.2 (0.0-0.8) K/uL Eos # (Auto) 0.0 (0.0-0.7) K/uL Baso # (Auto) 0.1 (0.0-0.2) K/uL Neutrophils % (Manual) 90 H (50-75) % Band Neutrophils % 3 H (0-2) % Lymphocytes % (Manual) 4 L (20-40) % Monocytes % (Manual) 3 (0-10) % Nucleated RBC % 1 H (0-0) % Platelet Estimate Decreased L (NORMAL) Polychromasia Slight Hypochromasia (manual) Slight Anisocytosis (manual) Slight Target Cells Slight Puncture Site pCO2 (35-45) mm/Hg pO2 (80-100) mm/Hg HCO3 (21-28) mmol/L ABG pH (7.35-7.45) ABG Total CO2 (22-28) mmol/L ABG O2 Saturation (95-98) % ABG Base Excess (-2.0-3.0) mmol/L ABG Hemoglobin (11.7-17.4) g/dL ABG Carboxyhemoglobin (0.5-1.5) % POC ABG HHb (Measured) (0.0-5.0) % ABG Methemoglobin (0.0-3.0) % [place] Test A-a O2 Difference mm/Hg Respiratory Index Hgb O2 Saturation (95.0-98.0) % Vent Mode Mechanical Rate FiO2 % Tidal Volume PEEP Sodium 152 H (132-148) mmol/L Potassium 4.4 (3.6-5.2) mmol/L Chloride 129 H (98-107) mmol/L Carbon Dioxide 16 L (22-30) mmol/L Anion Gap 11 (10-20) BUN 33 H (7-17) mg/dL Creatinine 0.9 (0.7-1.2) mg/dL Est GFR ( Amer) > 60 Est GFR (Non-Af Amer) > 60 POC Glucose (mg/dL) 169 H (65-110) mg/dL Random Glucose 175 H (65-105) mg/dL Lactic Acid (0.7-2.1) mmol/L Calcium 7.2 L (8.6-10.4) mg/dl Phosphorus 3.3 (2.5-4.5) mg/dL Magnesium 2.0 (1.6-2.3) mg/dL Total Bilirubin 0.5 (0.2-1.3) mg/dL AST 249 H D (14-36) U/L ALT 74 H D (9-52) U/L Alkaline Phosphatase 277 H (38-126) U/L Total Protein 5.4 L (6.3-8.3) g/dL Albumin 2.3 L D (3.5-5.0) g/dL Globulin 3.2 (2.2-3.9) gm/dL Albumin/Globulin Ratio 0.7 L (1.0-2.1) 10/08/18 10/08/18 10/07/18 Range/Units 05:30 00:45 23:18 WBC (4.8-10.8) K/uL RBC (3.80-5.20) Mil/uL Hgb (11.0-16.0) g/dL Hct (34.0-47.0) % MCV (81.0-99.0) fL MCH (27.0-31.0) pg MCHC (33.0-37.0) g/dL RDW (11.5-14.5) % Plt Count (130-400) K/uL MPV (7.2-11.7) fL Neut % (Auto) (50.0-75.0) % Lymph % (Auto) (20.0-40.0) % [place] % (Auto) (0.0-10.0) % Eos % (Auto) (0.0-4.0) % Baso % (Auto) (0.0-2.0) % Neut # (Auto) (1.8-7.0) K/uL Lymph # (Auto) (1.0-4.3) K/uL [place] # (Auto) (0.0-0.8) K/uL Eos # (Auto) (0.0-0.7) K/uL Baso # (Auto) (0.0-0.2) K/uL Neutrophils % (Manual) (50-75) % Band Neutrophils % (0-2) % Lymphocytes % (Manual) (20-40) % Monocytes % (Manual) (0-10) % Nucleated RBC % (0-0) % Platelet Estimate (NORMAL) Polychromasia Hypochromasia (manual) Anisocytosis (manual) Target Cells Puncture Site Rr pCO2 23 L (35-45) mm/Hg pO2 93 (80-100) mm/Hg HCO3 15.1 L (21-28) mmol/L ABG pH 7.31 L (7.35-7.45) ABG Total CO2 12.3 L (22-28) mmol/L ABG O2 Saturation 98.5 H (95-98) % ABG Base Excess -12.6 L (-2.0-3.0) mmol/L ABG Hemoglobin 14.4 (11.7-17.4) g/dL ABG Carboxyhemoglobin 1.9 H (0.5-1.5) % POC ABG HHb (Measured) 1.5 (0.0-5.0) % ABG Methemoglobin 0.8 (0.0-3.0) % [place] Test Pos A-a O2 Difference 128.0 mm/Hg Respiratory Index 1.4 Hgb O2 Saturation 95.8 (95.0-98.0) % Vent Mode Prvc Mechanical Rate 18 FiO2 35.0 % Tidal Volume 450 PEEP 5 Sodium (132-148) mmol/L Potassium (3.6-5.2) mmol/L Chloride (98-107) mmol/L Carbon Dioxide (22-30) mmol/L Anion Gap (10-20) BUN (7-17) mg/dL Creatinine (0.7-1.2) mg/dL Est GFR ( Amer) Est GFR (Non-Af Amer) POC Glucose (mg/dL) 151 H (65-110) mg/dL Random Glucose (65-105) mg/dL Lactic Acid 1.1 (0.7-2.1) mmol/L Calcium (8.6-10.4) mg/dl Phosphorus (2.5-4.5) mg/dL Magnesium (1.6-2.3) mg/dL Total Bilirubin (0.2-1.3) mg/dL AST (14-36) U/L ALT (9-52) U/L Alkaline Phosphatase (38-126) U/L Total Protein (6.3-8.3) g/dL Albumin (3.5-5.0) g/dL Globulin (2.2-3.9) gm/dL Albumin/Globulin Ratio (1.0-2.1) 10/07/18 Range/Units 17:33 WBC (4.8-10.8) K/uL RBC (3.80-5.20) Mil/uL Hgb (11.0-16.0) g/dL Hct (34.0-47.0) % MCV (81.0-99.0) fL MCH (27.0-31.0) pg MCHC (33.0-37.0) g/dL RDW (11.5-14.5) % Plt Count (130-400) K/uL MPV (7.2-11.7) fL Neut % (Auto) (50.0-75.0) % Lymph % (Auto) (20.0-40.0) % [place] % (Auto) (0.0-10.0) % Eos % (Auto) (0.0-4.0) % Baso % (Auto) (0.0-2.0) % Neut # (Auto) (1.8-7.0) K/uL Lymph # (Auto) (1.0-4.3) K/uL [place] # (Auto) (0.0-0.8) K/uL Eos # (Auto) (0.0-0.7) K/uL Baso # (Auto) (0.0-0.2) K/uL Neutrophils % (Manual) (50-75) % Band Neutrophils % (0-2) % Lymphocytes % (Manual) (20-40) % Monocytes % (Manual) (0-10) % Nucleated RBC % (0-0) % Platelet Estimate (NORMAL) Polychromasia Hypochromasia (manual) Anisocytosis (manual) Target Cells Puncture Site pCO2 (35-45) mm/Hg pO2 (80-100) mm/Hg HCO3 (21-28) mmol/L ABG pH (7.35-7.45) ABG Total CO2 (22-28) mmol/L ABG O2 Saturation (95-98) % ABG Base Excess (-2.0-3.0) mmol/L ABG Hemoglobin (11.7-17.4) g/dL ABG Carboxyhemoglobin (0.5-1.5) % POC ABG HHb (Measured) (0.0-5.0) % ABG Methemoglobin (0.0-3.0) % [place] Test A-a O2 Difference mm/Hg Respiratory Index Hgb O2 Saturation (95.0-98.0) % Vent Mode Mechanical Rate FiO2 % Tidal Volume PEEP Sodium (132-148) mmol/L Potassium (3.6-5.2) mmol/L Chloride (98-107) mmol/L Carbon Dioxide (22-30) mmol/L Anion Gap (10-20) BUN (7-17) mg/dL Creatinine (0.7-1.2) mg/dL Est GFR ( Amer) Est GFR (Non-Af Amer) POC Glucose (mg/dL) 123 H (65-110) mg/dL Random Glucose (65-105) mg/dL Lactic Acid (0.7-2.1) mmol/L Calcium (8.6-10.4) mg/dl Phosphorus (2.5-4.5) mg/dL Magnesium (1.6-2.3) mg/dL Total Bilirubin (0.2-1.3) mg/dL AST (14-36) U/L ALT (9-52) U/L Alkaline Phosphatase (38-126) U/L Total Protein (6.3-8.3) g/dL Albumin (3.5-5.0) g/dL Globulin (2.2-3.9) gm/dL Albumin/Globulin Ratio (1.0-2.1) Laboratory Results - last 24 hr 10/07/18 10/07/18 10/08/18 17:33 23:18 00:45 WBC RBC Hgb Hct MCV MCH MCHC RDW Plt Count MPV Neut % (Auto) Lymph % (Auto) [place] % (Auto) Eos % (Auto) Baso % (Auto) Neut # (Auto) Lymph # (Auto) [place] # (Auto) Eos # (Auto) Baso # (Auto) Neutrophils % (Manual) Band Neutrophils % Lymphocytes % (Manual) Monocytes % (Manual) Nucleated RBC % Platelet Estimate Polychromasia Hypochromasia (manual) Anisocytosis (manual) Target Cells Puncture Site pCO2 pO2 HCO3 ABG pH ABG Total CO2 ABG O2 Saturation ABG Base Excess ABG Hemoglobin ABG Carboxyhemoglobin POC ABG HHb (Measured) ABG Methemoglobin [place] Test A-a O2 Difference Respiratory Index Hgb O2 Saturation Vent Mode Mechanical Rate FiO2 Tidal Volume PEEP Sodium Potassium Chloride Carbon Dioxide Anion Gap BUN Creatinine Est GFR ( Amer) Est GFR (Non-Af Amer) POC Glucose (mg/dL) 123 H 151 H Random Glucose Lactic Acid 1.1 Calcium Phosphorus Magnesium Total Bilirubin AST ALT Alkaline Phosphatase Total Protein Albumin Globulin Albumin/Globulin Ratio 10/08/18 10/08/18 10/08/18 05:30 06:09 06:09 WBC 14.5 H RBC 2.51 L Hgb 8.0 L Hct 25.3 L MCV 100.9 H MCH 32.0 H MCHC 31.7 L RDW 15.7 H Plt Count 79 L D MPV 9.5 Neut % (Auto) 94.4 H Lymph % (Auto) 3.4 L [place] % (Auto) 1.6 Eos % (Auto) 0.1 Baso % (Auto) 0.5 Neut # (Auto) 13.7 H Lymph # (Auto) 0.5 L [place] # (Auto) 0.2 Eos # (Auto) 0.0 Baso # (Auto) 0.1 Neutrophils % (Manual) 90 H Band Neutrophils % 3 H Lymphocytes % (Manual) 4 L Monocytes % (Manual) 3 Nucleated RBC % 1 H Platelet Estimate Decreased L Polychromasia Slight Hypochromasia (manual) Slight Anisocytosis (manual) Slight Target Cells Slight Puncture Site Rr pCO2 23 L pO2 93 HCO3 15.1 L ABG pH 7.31 L ABG Total CO2 12.3 L ABG O2 Saturation 98.5 H ABG Base Excess -12.6 L ABG Hemoglobin 14.4 ABG Carboxyhemoglobin 1.9 H POC ABG HHb (Measured) 1.5 ABG Methemoglobin 0.8 [place] Test Pos A-a O2 Difference 128.0 Respiratory Index 1.4 Hgb O2 Saturation 95.8 Vent Mode Prvc Mechanical Rate 18 FiO2 35.0 Tidal Volume 450 PEEP 5 Sodium 152 H Potassium 4.4 Chloride 129 H Carbon Dioxide 16 L Anion Gap 11 BUN 33 H Creatinine 0.9 Est GFR ( Amer) > 60 Est GFR (Non-Af Amer) > 60 POC Glucose (mg/dL) Random Glucose 175 H Lactic Acid Calcium 7.2 L Phosphorus 3.3 Magnesium 2.0 Total Bilirubin 0.5 AST 249 H D ALT 74 H D Alkaline Phosphatase 277 H Total Protein 5.4 L Albumin 2.3 L D Globulin 3.2 Albumin/Globulin Ratio 0.7 L 10/08/18 06:27 WBC RBC Hgb Hct MCV MCH MCHC RDW Plt Count MPV Neut % (Auto) Lymph % (Auto) [place] % (Auto) Eos % (Auto) Baso % (Auto) Neut # (Auto) Lymph # (Auto) [place] # (Auto) Eos # (Auto) Baso # (Auto) Neutrophils % (Manual) Band Neutrophils % Lymphocytes % (Manual) Monocytes % (Manual) Nucleated RBC % Platelet Estimate Polychromasia Hypochromasia (manual) Anisocytosis (manual) Target Cells Puncture Site pCO2 pO2 HCO3 ABG pH ABG Total CO2 ABG O2 Saturation ABG Base Excess ABG Hemoglobin ABG Carboxyhemoglobin POC ABG HHb (Measured) ABG Methemoglobin [place] Test A-a O2 Difference Respiratory Index Hgb O2 Saturation Vent Mode Mechanical Rate FiO2 Tidal Volume PEEP Sodium Potassium Chloride Carbon Dioxide Anion Gap BUN Creatinine Est GFR ( Amer) Est GFR (Non-Af Amer) POC Glucose (mg/dL) 169 H Random Glucose Lactic Acid Calcium Phosphorus Magnesium Total Bilirubin AST ALT Alkaline Phosphatase Total Protein Albumin Globulin Albumin/Globulin Ratio Radiology Impressions: Radiology Impressions Chest X-Ray 10/08/18 06:00 IMPRESSION: The subsegmental atelectasis and/or subsegmental infiltrate at the left lung base is similar. Cardiomegaly and pulmonary venous congestion grossly similar. 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 Endotracheal tube, right internal jugular catheter, NG tube and pacemaker leads all appear satisfactory. Attending/Attestation - Attestation I have personally seen and examined this patient.: Yes I have fully participated in the care of the patient.: Yes I have reviewed all pertinent clinical information: Yes Notes (Text): 10/08/18 15:04 I have seen and examined the patient. Medical records, lab studies, and imaging were reviewed by me and a management plan was formulated on multidisciplinary rounds with resident Dr. Arizmendi. I agree with their documented assessment and plan. Had a discussion about patient's worsening prognosis. They said she never wanted to be on any types of life support, and have agreed to terminal extubation with DNR. We will terminally extubated as per family and patient's known wishes. Critical Care Time 35 minutes. Multi-disciplinary rounds were performed with house staff, nursing, speech therapy, respiratory therapy, pharmacy and nutrition with integrated input from the primary team/attending and other consulting services. The documented time is cumulative and includes review of patient data/exams/labs/chart review and examination of the patient on rounds and throughout the day; time is exclusive of any procedures or teaching time. <Mine Arizmendi - Last Filed: 10/08/18 16:27> CCU Subjective - Physician Review Subjective (Free Text): 10/08/18 12:35 Mine Arizmendi PGY1 Progress note for Dr. Radha Jimenez Pt was examined at bedside this morning. She is sedated, non verbal and non responsive to commands. ROS is unattainable at this time. CCU Objective - Vital Signs / Intake & Output Vital Signs (Last 4 hours): Vital Signs Temp Pulse Resp BP Pulse Ox 10/08/18 12:30 100.8 F H 10/08/18 09:00 99 H 24 115/61 98 Intake and Output (Last 8hrs): Intake & Output 10/07/18 10/08/18 10/08/18 22:59 06:59 14:59 Intake Total 2205.28 1765.37 253.1 Output Total 355 450 50 Balance 1850.28 1315.37 203.1 Weight 190 lb 4.8 oz Intake: IV 421.73 317.67 84.8 Intake, IV Amount 1533.55 1127.7 128.3 Right Antecubital 100 Right Distal Port 671.1 260.9 38.1 Right Medial Port 115.2 102.4 12.8 Right Proximal Port 470 right AC Y port 175 747 75 right Distal Y port 2.25 17.4 2.4 Oral 0 0 0 Tube Feeding 200 320 40 Other 50 Output: Urine 355 450 50 Urethral ([place]) 355 450 50 - Physical Exam Head: Positive for: Atraumatic, Normocephalic Pupils: Positive for: Pinpoint Extroacular Muscles: Positive for: Gaze Palsy Conjunctiva: Positive for: Normal, Icteric Mouth: Positive for: Dry Respiratory/Chest: Positive for: Decreased Breath Sounds. Negative for: Clear to Auscultation, Respiratory Distress, Wheezes, Rhonchi Cardiovascular: Positive for: Normal S1, S2, Irregular Rhythm, Tachycardic. Negative for: Murmurs, Rub, Gallop Abdomen: Positive for: Normal Bowel Sounds, Scars. Negative for: Tenderness, Distention, Peritoneal Signs Upper Extremity: Positive for: Edema. Negative for: Cyanosis Lower Extremity: Positive for: Edema Neurological: Negative for: Speech Normal Skin: Positive for: Dry Psychiatric: Positive for: Other (sedated, unable to assess) - Medications Active Medications: Active Medications Generic Name Dose Route Start Last Admin Trade Name Freq PRN Reason Stop Dose Admin Acetaminophen 650 mg 10/08/18 12:17 10/08/18 12:30 Tylenol 650mg/20.3ml Solution Ud PO 650 mg Q6 PRN Administration Temperature Enoxaparin Sodium 80 mg 10/09/18 10:00 Lovenox SC DAILY CHRISTIANO Hydrocortisone Sodium Succinate 100 mg 10/08/18 03:00 10/08/18 12:07 Solu-Cortef IV 100 mg Q8H CHRISTIANO Administration Hydromorphone HCl 0.5 mg 10/07/18 18:58 10/08/18 02:52 Dilaudid IVP 0.5 mg Q6H PRN Administration Pain, severe (8-10) Meropenem 500 mg/ Sodium 100 mls @ 100 mls/hr 10/05/18 11:30 10/08/18 12:01 Chloride IVPB 100 mls/hr Q12H CHRISTIANO Administration Protocol Dexmedetomidine HCl 200 mcg/ 50 mls @ 3.65 mls/hr 10/06/18 09:53 10/08/18 08:33 Sodium Chloride IV 0.7 mcg/kg/hr TITR PRN 12.78 mls/hr Agitation Administration Protocol 0.2 MCG/KG/HR Vancomycin HCl 750 mg/ Sodium 250 mls @ 166.6 mls/hr 10/07/18 09:30 10/08/18 08:35 Chloride IVPB 166.6 mls/hr Q12H CHRISTIANO Administration Protocol Norepinephrine Bitartrate 8 mg 508 mls @ 15.24 mls/hr 10/07/18 16:45 10/08/18 05:30 / Sodium Chloride IV 7 mcg/min .Q24H PRN 26.67 mls/hr TITRATE PER MD ORDER Titration Protocol 4 MCG/MIN Thiamine HCl 200 mg/ Sodium 102 mls @ 200 mls/hr 10/07/18 19:00 10/08/18 10:30 Chloride IV 200 mls/hr Q8H CHRISTIANO Administration Vasopressin 40 units/ Dextrose 40 mls @ 2.4 mls/hr 10/07/18 19:15 10/08/18 12:00 IV Not Given .[id number] CHRISTIANO Protocol 0.04 UNITS/MIN Sodium Bicarbonate 75 meq/ 1,075 mls @ 100 mls/hr 10/08/18 11:30 10/08/18 12:13 Sodium Chloride IV 100 mls/hr .[id number] CHRISTIANO Administration Multivitamins/Vitamin C 5 ml 10/08/18 10:00 10/08/18 10:00 Multi-Delyn Liquid PO 5 ml DAILY CHRISTIANO Administration Pantoprazole Sodium 40 mg 10/08/18 10:00 10/08/18 09:47 Protonix Susp GT 40 mg DAILY CHRISTIANO Administration Sucralfate 1 gm 10/07/18 10:00 10/08/18 09:47 Carafate Oral Susp PO 1 gm DAILY CHRISTIANO Administration - Patient Studies Lab Studies: Microbiology Studies 10/04/18 15:20 S.aureus & Coag-Neg Staph PNA FISH - Final Blood Blood Culture - Final Coagulase Neg Staphylococcus Gram Stain - Final 10/07/18 00:23 Urine Culture - Final Urine,Catheterized No Growth (<1,000 CFU/ML) 10/04/18 16:00 Blood Culture - Preliminary Blood NO GROWTH AFTER 3 DAYS 10/06/18 00:30 MRSA Culture (Admit) - Final Nose MRSA NOT DETECTED Lab Studies 10/08/18 10/08/18 10/08/18 Range/Units 06:27 06:09 06:09 WBC 14.5 H (4.8-10.8) K/uL RBC 2.51 L (3.80-5.20) Mil/uL Hgb 8.0 L (11.0-16.0) g/dL Hct 25.3 L (34.0-47.0) % MCV 100.9 H (81.0-99.0) fL MCH 32.0 H (27.0-31.0) pg MCHC 31.7 L (33.0-37.0) g/dL RDW 15.7 H (11.5-14.5) % Plt Count 79 L D (130-400) K/uL MPV 9.5 (7.2-11.7) fL Neut % (Auto) 94.4 H (50.0-75.0) % Lymph % (Auto) 3.4 L (20.0-40.0) % [place] % (Auto) 1.6 (0.0-10.0) % Eos % (Auto) 0.1 (0.0-4.0) % Baso % (Auto) 0.5 (0.0-2.0) % Neut # (Auto) 13.7 H (1.8-7.0) K/uL Lymph # (Auto) 0.5 L (1.0-4.3) K/uL [place] # (Auto) 0.2 (0.0-0.8) K/uL Eos # (Auto) 0.0 (0.0-0.7) K/uL Baso # (Auto) 0.1 (0.0-0.2) K/uL Neutrophils % (Manual) 90 H (50-75) % Band Neutrophils % 3 H (0-2) % Lymphocytes % (Manual) 4 L (20-40) % Monocytes % (Manual) 3 (0-10) % Nucleated RBC % 1 H (0-0) % Platelet Estimate Decreased L (NORMAL) Polychromasia Slight Hypochromasia (manual) Slight Anisocytosis (manual) Slight Target Cells Slight Puncture Site pCO2 (35-45) mm/Hg pO2 (80-100) mm/Hg HCO3 (21-28) mmol/L ABG pH (7.35-7.45) ABG Total CO2 (22-28) mmol/L ABG O2 Saturation (95-98) % ABG Base Excess (-2.0-3.0) mmol/L ABG Hemoglobin (11.7-17.4) g/dL ABG Carboxyhemoglobin (0.5-1.5) % POC ABG HHb (Measured) (0.0-5.0) % ABG Methemoglobin (0.0-3.0) % [place]res[place] Test A-a O2 Difference mm/Hg Respiratory Index Hgb O2 Saturation (95.0-98.0) % Vent Mode Mechanical Rate FiO2 % Tidal Volume PEEP Sodium 152 H (132-148) mmol/L Potassium 4.4 (3.6-5.2) mmol/L Chloride 129 H (98-107) mmol/L Carbon Dioxide 16 L (22-30) mmol/L Anion Gap 11 (10-20) BUN 33 H (7-17) mg/dL Creatinine 0.9 (0.7-1.2) mg/dL Est GFR ( Amer) > 60 Est GFR (Non-Af Amer) > 60 POC Glucose (mg/dL) 169 H (65-110) mg/dL Random Glucose 175 H (65-105) mg/dL Lactic Acid (0.7-2.1) mmol/L Calcium 7.2 L (8.6-10.4) mg/dl Phosphorus 3.3 (2.5-4.5) mg/dL Magnesium 2.0 (1.6-2.3) mg/dL Total Bilirubin 0.5 (0.2-1.3) mg/dL AST 249 H D (14-36) U/L ALT 74 H D (9-52) U/L Alkaline Phosphatase 277 H (38-126) U/L Total Protein 5.4 L (6.3-8.3) g/dL Albumin 2.3 L D (3.5-5.0) g/dL Globulin 3.2 (2.2-3.9) gm/dL Albumin/Globulin Ratio 0.7 L (1.0-2.1) 10/08/18 10/08/18 10/07/18 Range/Units 05:30 00:45 23:18 WBC (4.8-10.8) K/uL RBC (3.80-5.20) Mil/uL Hgb (11.0-16.0) g/dL Hct (34.0-47.0) % MCV (81.0-99.0) fL MCH (27.0-31.0) pg MCHC (33.0-37.0) g/dL RDW (11.5-14.5) % Plt Count (130-400) K/uL MPV (7.2-11.7) fL Neut % (Auto) (50.0-75.0) % Lymph % (Auto) (20.0-40.0) % [place] % (Auto) (0.0-10.0) % Eos % (Auto) (0.0-4.0) % Baso % (Auto) (0.0-2.0) % Neut # (Auto) (1.8-7.0) K/uL Lymph # (Auto) (1.0-4.3) K/uL [place] # (Auto) (0.0-0.8) K/uL Eos # (Auto) (0.0-0.7) K/uL Baso # (Auto) (0.0-0.2) K/uL Neutrophils % (Manual) (50-75) % Band Neutrophils % (0-2) % Lymphocytes % (Manual) (20-40) % Monocytes % (Manual) (0-10) % Nucleated RBC % (0-0) % Platelet Estimate (NORMAL) Polychromasia Hypochromasia (manual) Anisocytosis (manual) Target Cells Puncture Site Rr pCO2 23 L (35-45) mm/Hg pO2 93 (80-100) mm/Hg HCO3 15.1 L (21-28) mmol/L ABG pH 7.31 L (7.35-7.45) ABG Total CO2 12.3 L (22-28) mmol/L ABG O2 Saturation 98.5 H (95-98) % ABG Base Excess -12.6 L (-2.0-3.0) mmol/L ABG Hemoglobin 14.4 (11.7-17.4) g/dL ABG Carboxyhemoglobin 1.9 H (0.5-1.5) % POC ABG HHb (Measured) 1.5 (0.0-5.0) % ABG Methemoglobin 0.8 (0.0-3.0) % [place] Test Pos A-a O2 Difference 128.0 mm/Hg Respiratory Index 1.4 Hgb O2 Saturation 95.8 (95.0-98.0) % Vent Mode Prvc Mechanical Rate 18 FiO2 35.0 % Tidal Volume 450 PEEP 5 Sodium (132-148) mmol/L Potassium (3.6-5.2) mmol/L Chloride (98-107) mmol/L Carbon Dioxide (22-30) mmol/L Anion Gap (10-20) BUN (7-17) mg/dL Creatinine (0.7-1.2) mg/dL Est GFR ( Amer) Est GFR (Non-Af Amer) POC Glucose (mg/dL) 151 H (65-110) mg/dL Random Glucose (65-105) mg/dL Lactic Acid 1.1 (0.7-2.1) mmol/L Calcium (8.6-10.4) mg/dl Phosphorus (2.5-4.5) mg/dL Magnesium (1.6-2.3) mg/dL Total Bilirubin (0.2-1.3) mg/dL AST (14-36) U/L ALT (9-52) U/L Alkaline Phosphatase (38-126) U/L Total Protein (6.3-8.3) g/dL Albumin (3.5-5.0) g/dL Globulin (2.2-3.9) gm/dL Albumin/Globulin Ratio (1.0-2.1) 10/07/18 10/07/18 Range/Units 17:33 13:34 WBC (4.8-10.8) K/uL RBC (3.80-5.20) Mil/uL Hgb (11.0-16.0) g/dL Hct (34.0-47.0) % MCV (81.0-99.0) fL MCH (27.0-31.0) pg MCHC (33.0-37.0) g/dL RDW (11.5-14.5) % Plt Count (130-400) K/uL MPV (7.2-11.7) fL Neut % (Auto) (50.0-75.0) % Lymph % (Auto) (20.0-40.0) % [place] % (Auto) (0.0-10.0) % Eos % (Auto) (0.0-4.0) % Baso % (Auto) (0.0-2.0) % Neut # (Auto) (1.8-7.0) K/uL Lymph # (Auto) (1.0-4.3) K/uL [place] # (Auto) (0.0-0.8) K/uL Eos # (Auto) (0.0-0.7) K/uL Baso # (Auto) (0.0-0.2) K/uL Neutrophils % (Manual) (50-75) % Band Neutrophils % (0-2) % Lymphocytes % (Manual) (20-40) % Monocytes % (Manual) (0-10) % Nucleated RBC % (0-0) % Platelet Estimate (NORMAL) Polychromasia Hypochromasia (manual) Anisocytosis (manual) Target Cells Puncture Site pCO2 (35-45) mm/Hg pO2 (80-100) mm/Hg HCO3 (21-28) mmol/L ABG pH (7.35-7.45) ABG Total CO2 (22-28) mmol/L ABG O2 Saturation (95-98) % ABG Base Excess (-2.0-3.0) mmol/L ABG Hemoglobin (11.7-17.4) g/dL ABG Carboxyhemoglobin (0.5-1.5) % POC ABG HHb (Measured) (0.0-5.0) % ABG Methemoglobin (0.0-3.0) % [place] Test A-a O2 Difference mm/Hg Respiratory Index Hgb O2 Saturation (95.0-98.0) % Vent Mode Mechanical Rate FiO2 % Tidal Volume PEEP Sodium (132-148) mmol/L Potassium (3.6-5.2) mmol/L Chloride (98-107) mmol/L Carbon Dioxide (22-30) mmol/L Anion Gap (10-20) BUN (7-17) mg/dL Creatinine (0.7-1.2) mg/dL Est GFR ( Amer) Est GFR (Non-Af Amer) POC Glucose (mg/dL) 123 H 102 (65-110) mg/dL Random Glucose (65-105) mg/dL Lactic Acid (0.7-2.1) mmol/L Calcium (8.6-10.4) mg/dl Phosphorus (2.5-4.5) mg/dL Magnesium (1.6-2.3) mg/dL Total Bilirubin (0.2-1.3) mg/dL AST (14-36) U/L ALT (9-52) U/L Alkaline Phosphatase (38-126) U/L Total Protein (6.3-8.3) g/dL Albumin (3.5-5.0) g/dL Globulin (2.2-3.9) gm/dL Albumin/Globulin Ratio (1.0-2.1) Laboratory Results - last 24 hr 10/07/18 10/07/18 10/07/18 13:34 17:33 23:18 WBC RBC Hgb Hct MCV MCH MCHC RDW Plt Count MPV Neut % (Auto) Lymph % (Auto) [place] % (Auto) Eos % (Auto) Baso % (Auto) Neut # (Auto) Lymph # (Auto) [place] # (Auto) Eos # (Auto) Baso # (Auto) Neutrophils % (Manual) Band Neutrophils % Lymphocytes % (Manual) Monocytes % (Manual) Nucleated RBC % Platelet Estimate Polychromasia Hypochromasia (manual) Anisocytosis (manual) Target Cells Puncture Site pCO2 pO2 HCO3 ABG pH ABG Total CO2 ABG O2 Saturation ABG Base Excess ABG Hemoglobin ABG Carboxyhemoglobin POC ABG HHb (Measured) ABG Methemoglobin [place] Test A-a O2 Difference Respiratory Index Hgb O2 Saturation Vent Mode Mechanical Rate FiO2 Tidal Volume PEEP Sodium Potassium Chloride Carbon Dioxide Anion Gap BUN Creatinine Est GFR ( Amer) Est GFR (Non-Af Amer) POC Glucose (mg/dL) 102 123 H 151 H Random Glucose Lactic Acid Calcium Phosphorus Magnesium Total Bilirubin AST ALT Alkaline Phosphatase Total Protein Albumin Globulin Albumin/Globulin Ratio 10/08/18 10/08/18 10/08/18 00:45 05:30 06:09 WBC 14.5 H RBC 2.51 L Hgb 8.0 L Hct 25.3 L MCV 100.9 H MCH 32.0 H MCHC 31.7 L RDW 15.7 H Plt Count 79 L D MPV 9.5 Neut % (Auto) 94.4 H Lymph % (Auto) 3.4 L [place] % (Auto) 1.6 Eos % (Auto) 0.1 Baso % (Auto) 0.5 Neut # (Auto) 13.7 H Lymph # (Auto) 0.5 L [place] # (Auto) 0.2 Eos # (Auto) 0.0 Baso # (Auto) 0.1 Neutrophils % (Manual) 90 H Band Neutrophils % 3 H Lymphocytes % (Manual) 4 L Monocytes % (Manual) 3 Nucleated RBC % 1 H Platelet Estimate Decreased L Polychromasia Slight Hypochromasia (manual) Slight Anisocytosis (manual) Slight Target Cells Slight Puncture Site Rr pCO2 23 L pO2 93 HCO3 15.1 L ABG pH 7.31 L ABG Total CO2 12.3 L ABG O2 Saturation 98.5 H ABG Base Excess -12.6 L ABG Hemoglobin 14.4 ABG Carboxyhemoglobin 1.9 H POC ABG HHb (Measured) 1.5 ABG Methemoglobin 0.8 [place] Test Pos A-a O2 Difference 128.0 Respiratory Index 1.4 Hgb O2 Saturation 95.8 Vent Mode Prvc Mechanical Rate 18 FiO2 35.0 Tidal Volume 450 PEEP 5 Sodium Potassium Chloride Carbon Dioxide Anion Gap BUN Creatinine Est GFR ( Amer) Est GFR (Non-Af Amer) POC Glucose (mg/dL) Random Glucose Lactic Acid 1.1 Calcium Phosphorus Magnesium Total Bilirubin AST ALT Alkaline Phosphatase Total Protein Albumin Globulin Albumin/Globulin Ratio 10/08/18 10/08/18 06:09 06:27 WBC RBC Hgb Hct MCV MCH MCHC RDW Plt Count MPV Neut % (Auto) Lymph % (Auto) [place] % (Auto) Eos % (Auto) Baso % (Auto) Neut # (Auto) Lymph # (Auto) [place] # (Auto) Eos # (Auto) Baso # (Auto) Neutrophils % (Manual) Band Neutrophils % Lymphocytes % (Manual) Monocytes % (Manual) Nucleated RBC % Platelet Estimate Polychromasia Hypochromasia (manual) Anisocytosis (manual) Target Cells Puncture Site pCO2 pO2 HCO3 ABG pH ABG Total CO2 ABG O2 Saturation ABG Base Excess ABG Hemoglobin ABG Carboxyhemoglobin POC ABG HHb (Measured) ABG Methemoglobin [place] Test A-a O2 Difference Respiratory Index Hgb O2 Saturation Vent Mode Mechanical Rate FiO2 Tidal Volume PEEP Sodium 152 H Potassium 4.4 Chloride 129 H Carbon Dioxide 16 L Anion Gap 11 BUN 33 H Creatinine 0.9 Est GFR ( Amer) > 60 Est GFR (Non-Af Amer) > 60 POC Glucose (mg/dL) 169 H Random Glucose 175 H Lactic Acid Calcium 7.2 L Phosphorus 3.3 Magnesium 2.0 Total Bilirubin 0.5 AST 249 H D ALT 74 H D Alkaline Phosphatase 277 H Total Protein 5.4 L Albumin 2.3 L D Globulin 3.2 Albumin/Globulin Ratio 0.7 L Radiology Impressions: Radiology Impressions Chest X-Ray 10/08/18 06:00 IMPRESSION: The subsegmental atelectasis and/or subsegmental infiltrate at the left lung base is similar. Cardiomegaly and pulmonary venous congestion grossly similar. 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 Endotracheal tube, right internal jugular catheter, NG tube and pacemaker leads all appear satisfactory. Fingerstick Blood Sugar Results: 169 Review of Systems - Review of Systems Systems not reviewed;Unavailable: Intubated Assessment/Plan - Assessment and Plan (Free Text) Assessment: 78 yo F with PMH malignant gastric cancer, asthma, hypothyroidism, alzheimer's, sick sinus syndrome, pacemaker, and atrial fibrillation is admitted for sepsis, dehydration, and AMS on 10/04/18 after being found unresponsive at [facility]. BEACH LIFEGUARD called for fever, hypotension, tachycardia. Pt intubated on the floor on 10/05 and admitted to ICU for further monitoring. Pt currently on 2 pressors, with worsening leukocytosis, anemia, thrombocytopenia, and metabolic acidosis. Family aware of current situation and prognosis, signed DNR on 10/08, agreed to extubation and comfort care. Plan: Neuro S/p sedation - morphine drip - re-asses mental status Cardiovascular h/o A.fib, sick sinus syndrome - hypotensive, tachycardic - CXR 10/07: minor central pulmonary vascular congestion w/ bibasilar atelectasis/infiltrates. small b/l effusions L>R - CXR 10/06: improved venous congestion - CXR 10/05: R central venous catheter tip extending into R atrium, ET tube extending into midthoracic trachea. L sided pacemaker. mild venous congestion. small L pleural effusion. cardiomegaly, enlarged ectatic aorta. - lovenox 80 sc daily - levophed @7 mcg/min - vasopressin @0.04 - maintain normotension - Cardiology consulted, Dr. Zapien - no intervention at this time, recs appr eciated Pulm Respiratory failure - terminal extubation - CXR 10/07: minor central pulmonary vascular congestion w/ bibasilar atelectasis/infiltrates. small b/l effusions L>R - CXR 10/06: improved venous congestion - CXR 10/05: R central venous catheter tip extending into R atrium, ET tube extending into midthoracic trachea. L sided pacemaker. mild venous congestion. small L pleural effusion. cardiomegaly, enlarged ectatic aorta. - maintain SpO2 >92% GI - Vital 1.2 feeds Renal Non anion gap metabolic acidosis - RTA type II - HCO3 16 - BUN/Cr 33/0.9 Heme Acute on chronic anemia - H/H 06/20.3, worsening - h/o gastric cancer stage 4 - Heme/onc consulted, Dr. Gonzáles - recs appreciated ID Sepsis, secondary to bacteremia - febrile - leukocytosis - BCx pos for Gram+ cocci in clusters, coagulase neg staph. likely contaminant - UCx neg - ID consulted, Dr. Galvan - recs appreciated PPX GI and DVT ppx not indicated at this time, as pt is on comfort care Vital 1.2 feeds Pt seen and case reviewed with Dr. Radha Jimenez
--- NOTE | 2018-10-08 13:26 | CP.PCM.PN ---
Subjective - Date & Time of Evaluation Date of Evaluation: 10/08/18 Time of Evaluation: 11:00 - Subjective Subjective: Patient is intubated, off sedation this morning, unable to fallow commends and with occasional cough. Patient is not breathing on her own. BP supported by Levophed. Latest Bc + Gram + cocci. Merrem IV on board. On the day of admission to ICU, patient's daughter Eliana rescinded the DNR/DNI when the BISQUE CLEANER was called for HR of 138. Unfortunatelly, patient's condition declined despite the life support and family is considering allowing natural . Objective - Vital Signs/Intake and Output Vital Signs (last 24 hours): Temp Pulse Resp BP Pulse Ox 100.8 F H 99 H 24 115/61 98 10/08/18 12:30 10/08/18 09:00 10/08/18 09:00 10/08/18 09:00 10/08/18 09:00 Intake and Output: 10/08/18 10/08/18 06:59 18:59 Intake Total 3214.25 253.1 Output Total 600 50 Balance 2614.25 203.1 - Medications Medications: Current Medications Acetaminophen (Tylenol 650mg/20.3ml Solution Ud) 650 mg PO Q6 PRN PRN Reason: Temperature Last Admin: 10/08/18 12:30 Dose: 650 mg Enoxaparin Sodium (Lovenox) 80 mg SC DAILY [facility] Hydrocortisone Sodium Succinate (Solu-Cortef) 100 mg IV Q8H CHRISTIANO Last Admin: 10/08/18 12:07 Dose: 100 mg Hydromorphone HCl (Dilaudid) 0.5 mg IVP Q6H PRN PRN Reason: Pain, severe (8-10) Last Admin: 10/08/18 02:52 Dose: 0.5 mg Meropenem 500 mg/ Sodium (Chloride) 100 mls @ 100 mls/hr IVPB Q12H CHRISTIANO; Protocol Last Admin: 10/08/18 12:01 Dose: 100 mls/hr Dexmedetomidine HCl 200 mcg/ (Sodium Chloride) 50 mls @ 3.65 mls/hr IV TITR PRN; Protocol PRN Reason: Agitation Last Admin: 10/08/18 08:33 Dose: 0.7 mcg/kg/hr, 12.78 mls/hr Vancomycin HCl 750 mg/ Sodium (Chloride) 250 mls @ 166.6 mls/hr IVPB Q12H CHRISTIANO; Protocol Last Admin: 10/08/18 08:35 Dose: 166.6 mls/hr Norepinephrine Bitartrate 8 mg (/ Sodium Chloride) 508 mls @ 15.24 mls/hr IV .Q24H PRN; Protocol PRN Reason: TITRATE PER MD ORDER Last Titration: 10/08/18 05:30 Dose: 7 mcg/min, 26.67 mls/hr Thiamine HCl 200 mg/ Sodium (Chloride) 102 mls @ 200 mls/hr IV Q8H CHRISTIANO Last Admin: 10/08/18 10:30 Dose: 200 mls/hr Vasopressin 40 units/ Dextrose 40 mls @ 2.4 mls/hr IV .[id number] CHRISTIANO; Protocol Last Admin: 10/08/18 12:00 Dose: Not Given Sodium Bicarbonate 75 meq/ (Sodium Chloride) 1,075 mls @ 100 mls/hr IV .[id number] CHRISTIANO Last Admin: 10/08/18 12:13 Dose: 100 mls/hr Multivitamins/Vitamin C (Multi-Delyn Liquid) 5 ml PO DAILY CHRISTIANO Last Admin: 10/08/18 10:00 Dose: 5 ml Pantoprazole Sodium (Protonix Susp) 40 mg GT DAILY CHRISTIANO Last Admin: 10/08/18 09:47 Dose: 40 mg Sucralfate (Carafate Oral Susp) 1 gm PO DAILY CHRISTIANO Last Admin: 10/08/18 09:47 Dose: 1 gm - Labs Labs: 10/08/18 06:09 10/08/18 06:09 PT 23.0 SECONDS (9.7-12.2) H 10/04/18 15:35 INR 2.1 10/04/18 15:35 APTT 32 SECONDS (21-34) 10/04/18 15:35 - Constitutional Appears: In Acute Distress, Chronically Ill - Head Exam Head Exam: ATRAUMATIC, NORMAL INSPECTION, NORMOCEPHALIC - Eye Exam Eye Exam: EOMI, Normal appearance, PERRL Pupil Exam: NORMAL ACCOMODATION, PERRL - ENT Exam Additional comments: ETT - Neck Exam Neck Exam: Normal Inspection - Respiratory Exam Respiratory Exam: Decreased Breath Sounds - Cardiovascular Exam Cardiovascular Exam: Tachycardia - GI/Abdominal Exam GI & Abdominal Exam: Distended, Rigid, Hypoactive Bowel Sounds - Rectal Exam Rectal Exam: Deferred - Extremities Exam Extremities Exam: Pedal Edema - Back Exam Back Exam: NORMAL INSPECTION - Neurological Exam Neurological Exam: Alert Neuro motor strength exam: Left Upper Extremity: 0, Right Upper Extremity: 0, Left Lower Extremity: 0, Right Lower Extremity: 0 - Psychiatric Exam Psychiatric exam: Flat Affect - Skin Skin Exam: Dry, Intact, Pallor, Warm Assessment and Plan - Assessment and Plan (Free Text) Assessment: Doctor Espinosa discussed with large group of family members, the very complex and critical condition of a patient. Family members were given opportunity to ask questions. It was obvious that they had very difficult time excepting the terminal condition and poor prognosis. On the other hand, the family did not wa nt to see patient in this condition. One of the daughter said, the patient had told her in the past, that she would not want her life prolonged if the recovery was not expected. The family stated thinking about removal of life support, most likely for tomorrow, once they talk among themselves one more time. I spoke alone to daughter Eliana ,who is a Medical decision for the family, about suggested DNR at this point. She agreed and said that first DNR/DNI was revoked because of the family influence, but now, they all agreed on allowing natural . LYNDA was signed calling for DNR. Impression * Critically ill lady with metastatic gastric cancer on life support * Family realizes the complexity of condition and no chances of meaningfull recover * Family is considering allowing natural as ths was patient's wish stated verbaly to one of her daughter in the past Suggestion * Continue all life support until family makes final decision on end of life care 1:45 pm I got call from Olivia BHAKTA about family requesting removal of life support, this afternoon. More family members came in and I reviewed the steps of removing life support with intention to promote peaceful . They all said they understood. The orders for terminal extubation were carried out by vice president for philanthropy. Compliance Officer Annette was called for spiritual support. Advance care planing 60 min.
[2018-10-08] MEDS ORDERED: Morphine Sulfate 250 MG in Dextrose 5% In Water 240 ML IV PRN (13:45)
--- NOTE | 2018-10-08 15:36 | CP.PCM.CON ---
History of Present Illness - History of Present Illness History of Present Illness: Patient seen and examined at bedside in ICU. Patient remains intubated on ventilatory support. Sedated on Precedex and started on bicarbonate for non- anion gap metabolic acidosis. 78 yo F with PMH malignant gastric cancer, asthma, hypothyroidism, alzheimer's, sick sinus syndrome, pacemaker, and atrial fibrillation is admitted for sepsis, dehydration, and AMS on 10/04/18 after being found unresponsive at [facility]. PLACEMENT ASSISTANT called for fever, hypotension, tachycardia. Pt intubated on the floor on 10/05 and admitted to ICU for further monitoring. Pt on 2 pressors, with worsening leukocytosis, anemia, thrombocytopenia, and metabolic acidosis. Family aware of current situation and prognosis, signed DNR on 10/08, agreed to extubat ion and comfort care. Past Patient History - Past Medical History & Family History Past Medical History?: Yes - Past Social History Smoking Status: Never Smoked - CARDIAC Hx Atrial Fibrillation: Yes Hx Hypertension: Yes - PULMONARY Hx Asthma: Yes - NEUROLOGICAL Hx Alzheimer's Disease: Yes Hx Dementia: Yes - HEENT Hx HEENT Problems: No Hx Cataracts: Yes Other/Comment: Sinus syndrome - RENAL Hx Chronic Kidney Disease: No - ENDOCRINE/METABOLIC Hx Hypothyroidism: Yes - HEMATOLOGICAL/ONCOLOGICAL Hx Blood Disorders: No - INTEGUMENTARY Hx Dermatological Problems: No - MUSCULOSKELETAL/RHEUMATOLOGICAL Hx Musculoskeletal Disorders: No Hx Falls: Yes - GASTROINTESTINAL Hx Gastrointestinal Disorders: No Hx Gastroesophageal Reflux: No Other/Comment: Stomach CA - GENITOURINARY/GYNECOLOGICAL Hx Genitourinary Disorders: No - PSYCHIATRIC Hx Substance Use: No - SURGICAL HISTORY Hx Surgeries: Yes Hx Cataract Extraction: Yes Hx Section: Yes (37 yrs ago) Hx Orthopedic Surgery: Yes (knee replacement) Other/Comment: l knee surgery. Pacemaker - ANESTHESIA Hx Anesthesia: Yes Hx Anesthesia Reactions: No Hx Malignant Hyperthermia: No Meds Allergies/Adverse Reactions: Allergies Allergy/AdvReac Type Severity Reaction Status Date / Time No Known Allergies Allergy Verified 08/22/15 09:05 - Medications Medications: Current Medications Morphine Sulfate 250 mg/ (Dextrose) 250 mls @ 5 mls/hr IV .Q24H PRN; Protocol PRN Reason: Pain, moderate (4-7) Last Titration: 10/08/18 15:15 Dose: 27 ml/hr, 27 mls/hr Results - Vital Signs Recent Vital Signs: Last Vital Signs Temp 100.4 F H 10/08/18 13:30 Pulse 97 H 10/08/18 13:00 Resp 23 10/08/18 13:00 BP 125/62 10/08/18 13:00 Pulse Ox 100 10/08/18 13:00 - Labs Result Diagrams: 10/08/18 06:09 10/08/18 06:09 Labs: Laboratory Results - last 24 hr 10/07/18 10/07/18 10/08/18 17:33 23:18 00:45 WBC RBC Hgb Hct MCV MCH MCHC RDW Plt Count MPV Neut % (Auto) Lymph % (Auto) [place] % (Auto) Eos % (Auto) Baso % (Auto) Neut # (Auto) Lymph # (Auto) [place] # (Auto) Eos # (Auto) Baso # (Auto) Neutrophils % (Manual) Band Neutrophils % Lymphocytes % (Manual) Monocytes % (Manual) Nucleated RBC % Platelet Estimate Polychromasia Hypochromasia (manual) Anisocytosis (manual) Target Cells Puncture Site pCO2 pO2 HCO3 ABG pH ABG Total CO2 ABG O2 Saturation ABG Base Excess ABG Hemoglobin ABG Carboxyhemoglobin POC ABG HHb (Measured) ABG Methemoglobin [place] Test A-a O2 Difference Respiratory Index Hgb O2 Saturation Vent Mode Mechanical Rate FiO2 Tidal Volume PEEP Sodium Potassium Chloride Carbon Dioxide Anion Gap BUN Creatinine Est GFR ( Amer) Est GFR (Non-Af Amer) POC Glucose (mg/dL) 123 H 151 H Random Glucose Lactic Acid 1.1 Calcium Phosphorus Magnesium Total Bilirubin AST ALT Alkaline Phosphatase Total Protein Albumin Globulin Albumin/Globulin Ratio 10/08/18 10/08/18 10/08/18 05:30 06:09 06:09 WBC 14.5 H RBC 2.51 L Hgb 8.0 L Hct 25.3 L MCV 100.9 H MCH 32.0 H MCHC 31.7 L RDW 15.7 H Plt Count 79 L D MPV 9.5 Neut % (Auto) 94.4 H Lymph % (Auto) 3.4 L [place] % (Auto) 1.6 Eos % (Auto) 0.1 Baso % (Auto) 0.5 Neut # (Auto) 13.7 H Lymph # (Auto) 0.5 L [place] # (Auto) 0.2 Eos # (Auto) 0.0 Baso # (Auto) 0.1 Neutrophils % (Manual) 90 H Band Neutrophils % 3 H Lymphocytes % (Manual) 4 L Monocytes % (Manual) 3 Nucleated RBC % 1 H Platelet Estimate Decreased L Polychromasia Slight Hypochromasia (manual) Slight Anisocytosis (manual) Slight Target Cells Slight Puncture Site Rr pCO2 23 L pO2 93 HCO3 15.1 L ABG pH 7.31 L ABG Total CO2 12.3 L ABG O2 Saturation 98.5 H ABG Base Excess -12.6 L ABG Hemoglobin 14.4 ABG Carboxyhemoglobin 1.9 H POC ABG HHb (Measured) 1.5 ABG Methemoglobin 0.8 [place] Test Pos A-a O2 Difference 128.0 Respiratory Index 1.4 Hgb O2 Saturation 95.8 Vent Mode Prvc Mechanical Rate 18 FiO2 35.0 Tidal Volume 450 PEEP 5 Sodium 152 H Potassium 4.4 Chloride 129 H Carbon Dioxide 16 L Anion Gap 11 BUN 33 H Creatinine 0.9 Est GFR ( Amer) > 60 Est GFR (Non-Af Amer) > 60 POC Glucose (mg/dL) Random Glucose 175 H Lactic Acid Calcium 7.2 L Phosphorus 3.3 Magnesium 2.0 Total Bilirubin 0.5 AST 249 H D ALT 74 H D Alkaline Phosphatase 277 H Total Protein 5.4 L Albumin 2.3 L D Globulin 3.2 Albumin/Globulin Ratio 0.7 L 10/08/18 06:27 WBC RBC Hgb Hct MCV MCH MCHC RDW Plt Count MPV Neut % (Auto) Lymph % (Auto) [place] % (Auto) Eos % (Auto) Baso % (Auto) Neut # (Auto) Lymph # (Auto) [place] # (Auto) Eos # (Auto) Baso # (Auto) Neutrophils % (Manual) Band Neutrophils % Lymphocytes % (Manual) Monocytes % (Manual) Nucleated RBC % Platelet Estimate Polychromasia Hypochromasia (manual) Anisocytosis (manual) Target Cells Puncture Site pCO2 pO2 HCO3 ABG pH ABG Total CO2 ABG O2 Saturation ABG Base Excess ABG Hemoglobin ABG Carboxyhemoglobin POC ABG HHb (Measured) ABG Methemoglobin [place] Test A-a O2 Difference Respiratory Index Hgb O2 Saturation Vent Mode Mechanical Rate FiO2 Tidal Volume PEEP Sodium Potassium Chloride Carbon Dioxide Anion Gap BUN Creatinine Est GFR ( Amer) Est GFR (Non-Af Amer) POC Glucose (mg/dL) 169 H Random Glucose Lactic Acid Calcium Phosphorus Magnesium Total Bilirubin AST ALT Alkaline Phosphatase Total Protein Albumin Globulin Albumin/Globulin Ratio
--- NOTE | 2018-10-08 17:36 | CP.PCM.PN ---
Subjective - Date & Time of Evaluation Date of Evaluation: 10/08/18 Time of Evaluation: 10:30 - Subjective Subjective: clinically same Objective - Vital Signs/Intake and Output Vital Signs (last 24 hours): Temp Pulse Resp BP Pulse Ox 100.4 F H 112 H 14 95/49 L 94 L 10/08/18 13:30 10/08/18 16:30 10/08/18 16:30 10/08/18 16:30 10/08/18 16:30 Intake and Output: 10/08/18 10/08/18 06:59 18:59 Intake Total 3214.25 554.9 Output Total 600 50 Balance 2614.25 504.9 - Medications Medications: Current Medications Morphine Sulfate 250 mg/ (Dextrose) 250 mls @ 5 mls/hr IV .Q24H PRN; Protocol PRN Reason: Pain, moderate (4-7) Last Titration: 10/08/18 17:11 Dose: 15 ml/hr, 1,515 mls/hr - Labs Labs: 10/08/18 06:09 10/08/18 06:09 PT 23.0 SECONDS (9.7-12.2) H 10/04/18 15:35 INR 2.1 10/04/18 15:35 APTT 32 SECONDS (21-34) 10/04/18 15:35 - Constitutional Appears: Well - Head Exam Head Exam: ATRAUMATIC, NORMAL INSPECTION, NORMOCEPHALIC - Eye Exam Eye Exam: EOMI, Normal appearance, PERRL Pupil Exam: NORMAL ACCOMODATION, PERRL - ENT Exam ENT Exam: Mucous Membranes Moist, Normal Exam - Neck Exam Neck Exam: Full ROM, Normal Inspection. absent: Lymphadenopathy - Respiratory Exam Respiratory Exam: Decreased Breath Sounds - Cardiovascular Exam Cardiovascular Exam: REGULAR RHYTHM, +S1, +S2 - GI/Abdominal Exam GI & Abdominal Exam: Soft, Diminished Bowel Sounds - Rectal Exam Rectal Exam: Deferred Assessment and Plan (1) Acute respiratory failure with hypoxia Status: Acute (2) Alzheimer disease Status: Acute (3) Anemia Status: Acute (4) DNI (do not intubate) Status: Acute (5) DNR (do not resuscitate) Status: Acute (6) Gastric cancer Status: Acute (7) Leukocytosis Status: Acute (8) Septic shock Status: Acute (9) Severe sepsis Status: Acute (10) Thrombocytopenia Status: Acute (11) Abrasion of lower limb Status: Acute (12) Back pain, acute Status: Acute (13) Contusion of knee Status: Acute (14) Dementia Status: Acute (15) Hypothyroid Status: Acute (16) Prophylactic measure Status: Acute (17) Sprain of ankle Status: Acute (18) Sprain of shoulder Status: Acute (19) Syncope and collapse Status: Acute (20) Weakness generalized Status: Acute - Assessment and Plan (Free Text) Plan: Terminally extubated today Patient is only on the morphine drip everything stop Family all the family bedside Poor prognosis Discussed with the mechanical car checker As ordered
[2018-10-08 18:29] VITALS: TEMP 99.3
[2018-10-08 18:34] VITALS: BP 75/35; PULSE 100; RESP 13; O2SAT 64
--- NOTE | 2018-10-08 19:28 | CP.PCM.PRO ---
Pronouncement of Note - Clinical Findings Physical Exam: Absent Peripheral Pulses{Carotid & Femoral}, Absent Heart & Breath Sounds, No Pupillary Light Reflex, No Corneal Reflex, Pupils Fixed & Dilated, Absence of Vital Signs - Pronouncement Time Time of Pronouncement of : 19:14 - Notifications Pronouncement Notifications: Family Notified, Atending Notified Residential Advisor Notified: No - Autopsy Autopsy Requested: No - [place] [id number]
--- NOTE | 2018-10-08 23:53 | CP.PCM.PN ---
Subjective - Date & Time of Evaluation Date of Evaluation: 10/08/18 Time of Evaluation: 12:00 - Subjective Subjective: Vented, family at bedside. Objective - Vital Signs/Intake and Output Vital Signs (last 24 hours): Temp Pulse Resp BP Pulse Ox 99.3 F 100 H 13 75/35 L 64 L 10/08/18 16:00 10/08/18 18:11 10/08/18 18:11 10/08/18 18:11 10/08/18 18:11 Intake and Output: 10/08/18 10/09/18 18:59 06:59 Intake Total 1882.5 Output Total 550 Balance 1332.5 - Labs Labs: 10/08/18 06:09 10/08/18 06:09 PT 23.0 SECONDS (9.7-12.2) H 10/04/18 15:35 INR 2.1 10/04/18 15:35 APTT 32 SECONDS (21-34) 10/04/18 15:35 - Head Exam Head Exam: ATRAUMATIC - Eye Exam Eye Exam: Normal appearance - ENT Exam ENT Exam: Mucous Membranes Dry - Respiratory Exam Respiratory Exam: NORMAL BREATHING PATTERN - Cardiovascular Exam Cardiovascular Exam: +S1, +S2 - GI/Abdominal Exam GI & Abdominal Exam: Normal Bowel Sounds Assessment and Plan (1) Anemia Assessment & Plan: chronic disease recent chemotherapy Status: Acute (2) Thrombocytopenia Assessment & Plan: sepsis recent chemotherapy Status: Acute (3) Leukocytosis Assessment & Plan: on antibiotics Status: Acute (4) Gastric cancer Assessment & Plan: stage IV palliative care Status: Acute
[2018-10-09] MEDS ORDERED: Enoxaparin 80 mg Syringe SC SCH (10:00)
--- NOTE | 2018-10-09 13:41 | CP.PCM.PN ---
Subjective - Date & Time of Evaluation Date of Evaluation: 10/06/18 Time of Evaluation: 08:00 - Subjective Subjective: intubated unresponsive Objective - Vital Signs/Intake and Output Vital Signs (last 24 hours): Temp Pulse Resp BP Pulse Ox 99.1 F 116 H 20 109/67 100 10/05/18 19:09 10/06/18 06:20 10/06/18 06:20 10/06/18 06:02 10/06/18 06:20 Intake and Output: 10/06/18 10/06/18 06:59 18:59 Intake Total 2244.5 Output Total 300 Balance 1944.5 - Medications Medications: Current Medications Acetaminophen (Tylenol 650 Mg Supp) 650 mg MS Q8 PRN PRN Reason: Fever >100.4 F Last Admin: 10/05/18 15:42 Dose: 650 mg Enoxaparin Sodium (Lovenox) 30 mg SC DAILY CHRISTIANO Last Admin: 10/06/18 10:21 Dose: 30 mg Meropenem 500 mg/ Sodium (Chloride) 100 mls @ 100 mls/hr IVPB Q12H CHRISTIANO; Protocol Last Admin: 10/05/18 22:41 Dose: 100 mls/hr Sodium Chloride (Sodium Chloride 0.9%) 1,000 mls @ 100 mls/hr IV .Q10H CHRISTIANO Last Admin: 10/06/18 04:00 Dose: 100 mls/hr Norepinephrine Bitartrate 4 mg (/ Sodium Chloride) 254 mls @ 15.24 mls/hr IV .[id number] PRN; Protocol PRN Reason: TITRATE PER MD ORDER Last Admin: 10/06/18 04:56 Dose: 24.4 mcg/min, 93 mls/hr Vancomycin/Sodium Chloride (Vancomycin 1 Gm/Ns 200 Ml) 1 gm in 200 mls @ 133.333 mls/hr IVPB ONCE ONE; Protocol Stop: 10/06/18 11:59 Last Admin: 10/06/18 10:47 Dose: 133.333 mls/hr Dexmedetomidine HCl 200 mcg/ (Sodium Chloride) 50 mls @ 3.65 mls/hr IV TITR PRN; Protocol PRN Reason: Agitation Last Admin: 10/06/18 10:22 Dose: 0.4 mcg/kg/hr, 7.3 mls/hr Sodium Chloride (Sodium Chloride 0.9%) 1,000 mls @ 1,000 mls/hr IV .Q1H ONE Stop: 10/06/18 11:44 Last Admin: 10/06/18 10:49 Dose: 1,000 mls/hr Morphine Sulfate (Morphine) 2 mg IVP Q4 PRN PRN Reason: Pain, severe (8-10) Last Admin: 10/05/18 16:34 Dose: 2 mg Pantoprazole Sodium (Protonix Inj) 40 mg IVP DAILY CHRISTIANO Last Admin: 10/06/18 10:20 Dose: 40 mg - Labs Labs: 10/06/18 00:59 10/06/18 00:59 PT 23.0 SECONDS (9.7-12.2) H 10/04/18 15:35 INR 2.1 10/04/18 15:35 APTT 32 SECONDS (21-34) 10/04/18 15:35 - Constitutional Appears: Confused, Cachectic, Chronically Ill - Head Exam Head Exam: NORMOCEPHALIC - Eye Exam Eye Exam: absent: Scleral icterus - ENT Exam ENT Exam: Mucous Membranes Dry - Neck Exam Neck Exam: absent: Lymphadenopathy - Respiratory Exam Respiratory Exam: Decreased Breath Sounds - Cardiovascular Exam Cardiovascular Exam: REGULAR RHYTHM - GI/Abdominal Exam GI & Abdominal Exam: Distended, Soft - Rectal Exam Rectal Exam: Deferred - Exam Exam: NORMAL INSPECTION - Extremities Exam Extremities Exam: Pedal Edema - Back Exam Back Exam: absent: CVA tenderness (L), CVA tenderness (R) - Neurological Exam Neurological Exam: Altered Assessment and Plan (1) Alzheimer disease Status: Acute (2) DNR (do not resuscitate) Status: Acute (3) Gastric cancer Status: Acute (4) Severe sepsis Status: Acute - Assessment and Plan (Free Text) Assessment: 78 y/o female, with history of malignant gastric cancer, asthma, hypothyroidism, alzheimer's, sick sinus syndrome, pacemaker, and atrial fibrillation, is admitted 10/04/18 after being found unresponsive at [facility]. As per EMS, the patient was discharged from [facility] 2 days ago with a UTI and was supposed to be receiving IV fluids and IV antibiotics but her IV line came out > 24 hrs ago so patient has not been receiving her IV medication(s). Patient was found unresponsive, sinus tachycardic at 130 bpm, hypotensive, and tachypneic by EMS and patient is not verbal. patient was intubated,started on pressors and transferred to ICU
== END 2018-10-08 21:30 | DRG 871 ==
LOC: C.ER 15:02 → C.9E 17:17 → C.6T 17:46 → C.9I 10-05 20:15
PROVIDERS: ADMIT Internal Medicine Nephrology; ATTEND Internal Medicine Nephrology
PROC: 0BH17EZ Insertion of Endotracheal Airway into Trachea, Via Natural or Artificial Opening (ICD-10-PCS; principal; 2018-10-05)
PROC: 5A1945Z Respiratory Ventilation, 24-96 Consecutive Hours (ICD-10-PCS; 2018-10-05)
PROC: 02HV33Z Insertion of Infusion Device into Superior Vena Cava, Percutaneous Approach (ICD-10-PCS; 2018-10-05)
DX: A41.50 Gram-negative sepsis, unspecified (principal); J96.01 Acute respiratory failure with hypoxia; R65.21 Severe sepsis with septic shock; J18.9 Pneumonia, unspecified organism; N17.9 Acute kidney failure, unspecified; N39.0 Urinary tract infection, site not specified; C16.9 Malignant neoplasm of stomach, unspecified; D64.9 Anemia, unspecified; D69.6 Thrombocytopenia, unspecified; E03.9 Hypothyroidism, unspecified; E86.0 Dehydration; F02.80 Dementia in other diseases classified elsewhere, unspecified severity, without behavioral disturbance, psychotic disturbance, mood disturbance, and anxiety; G30.9 Alzheimer's disease, unspecified; I11.9 Hypertensive heart disease without heart failure; I48.0 Paroxysmal atrial fibrillation; I51.7 Cardiomegaly; J45.909 Unspecified asthma, uncomplicated; Z51.5 Encounter for palliative care; Z66 Do not resuscitate; Z96.659 Presence of unspecified artificial knee joint; Z95.0 Presence of cardiac pacemaker